=== PATIENT | female | born 1985 | race Caucasian/White ===

== ENCOUNTER 2023-10-21 13:51 | Outpatient (RCR) | payer OTHER, SELFPAY | END 2023-10-26 07:00 | disposition home or self-care (01) | LOC: PT 13:51 | PROVIDERS: PCP Family Medicine; Visit Provider Podiatrist Foot & Ankle Surgery | DX: M79.672 Pain in left foot (principal); M25.372 Other instability, left ankle; M76.72 Peroneal tendinitis, left leg; M25.572 Pain in left ankle and joints of left foot | CPT/HCPCS: 97110; 97161 ==

== ENCOUNTER 2023-10-27 10:40 | Outpatient (RCR) | payer OTHER, SELFPAY | END 2023-11-15 16:55 | disposition home or self-care (01) | LOC: PT 10:40 | PROVIDERS: PCP Family Medicine; Visit Provider Podiatrist Foot & Ankle Surgery | DX: M79.672 Pain in left foot (principal) | CPT/HCPCS: 97110; 97112 ==

== ENCOUNTER 2024-04-06 07:38 | Outpatient (RCR) | payer OTHER, SELFPAY ==
[2024-04-06 15:41] LABS: Basophils Absolute Auto 0.1 10^3/uL (0.0-0.1); Basophils Percent Auto 0.6 % (0.2-2.0); Eosinophils Absolute Auto 0.1 10^3/uL (0.0-0.7); Eosinophils Percent Auto 1.2 % (0.9-7.0); Hematocrit 39.1 % (36.0-48.0); Hemoglobin 12.7 g/dL (12.0-16.0); Immature Granulocytes Abs Auto 0.07 10^3/uL (0.00-0.03); Immature Granulocytes Pct Auto 0.8 % (0.0-0.5); Lymphocytes Absolute Auto 2.2 10^3/uL (1.2-3.8); Lymphocytes Percent Auto 24.6 % (20.5-60.0); Mean Corpuscular HGB Conc 32.5 g/dL (29.9-35.2); Mean Corpuscular Volume 92.4 fL (81.0-99.0); Mean Platelet Volume 8.9 fL (9.5-13.5); Monocytes Absolute Auto 0.5 10^3/uL (0.3-0.8); Neutrophils Absolute Auto 6.1 10^3/uL (1.4-6.5); Neutrophils Percent Auto 66.8 % (43.0-75.0); Platelet Count 321 10^3/uL (150-450); Red Blood Count 4.23 10^6/uL (4.20-5.40); White Blood Count 9.1 10^3/uL (4.0-11.0)
[2024-04-06 16:16] LABS: Percent Iron Saturation 23.7 %
== END 2024-04-25 23:59 | disposition home or self-care (01) ==
LOC: INF 07:38
PROVIDERS: PCP Family Medicine; Visit Provider Internal Medicine Hematology & Oncology
DX: D64.9 Anemia, unspecified (principal); D50.9 Iron deficiency anemia, unspecified; K90.9 Intestinal malabsorption, unspecified; K21.9 Gastro-esophageal reflux disease without esophagitis; K58.9 Irritable bowel syndrome, unspecified
CPT/HCPCS: 36415; 82306; 82607; 82728; 82746; 83540; 83550; 85025; G0463

== ENCOUNTER 2024-05-10 07:28 | Outpatient (RCR) | payer OTHER, SELFPAY ==
[2024-05-03] MEDS: FERUMOXYTOL 510 MG in 0.9 % SODIUM CHLORIDE 100 ML 234 MG IV (09:30)
[2024-05-03 09:50] VITALS: BP 112/69; PULSE 78; TEMP 37.2; O2SAT 97
[2024-05-10 09:10] VITALS: BP 101/53; PULSE 76; TEMP 36.6; O2SAT 98
[2024-05-10] MEDS: FERUMOXYTOL 510 MG in 0.9 % SODIUM CHLORIDE 100 ML 234 MG IV (09:12)
== END 2024-05-26 23:59 | disposition home or self-care (01) ==
LOC: HEMC 07:28
PROVIDERS: PCP Family Medicine; Visit Provider Internal Medicine Hematology & Oncology
DX: D50.9 Iron deficiency anemia, unspecified (principal); K90.9 Intestinal malabsorption, unspecified
CPT/HCPCS: 96365; Q0138

== ENCOUNTER 2024-06-01 07:16 | Outpatient (RCR) | payer OTHER, SELFPAY ==
[2024-05-27 00:05] VITALS: BP 101/53; PULSE 76; TEMP 36.6; O2SAT 98
[2024-06-01 10:52] LABS: Basophils Percent Auto 0.5 % (0.2-2.0); Eosinophils Absolute Auto 0.1 10^3/uL (0.0-0.7); Eosinophils Percent Auto 2.2 % (0.9-7.0); Hematocrit 40.9 % (36.0-48.0); Hemoglobin 13.2 g/dL (12.0-16.0); Immature Granulocytes Abs Auto 0.01 10^3/uL (0.00-0.03); Immature Granulocytes Pct Auto 0.2 % (0.0-0.5); Lymphocytes Absolute Auto 1.6 10^3/uL (1.2-3.8); Lymphocytes Percent Auto 26.7 % (20.5-60.0); Mean Corpuscular HGB Conc 32.3 g/dL (29.9-35.2); Mean Corpuscular Hemoglobin 30.6 pg (26.7-34.0); Mean Corpuscular Volume 94.9 fL (81.0-99.0); Mean Platelet Volume 8.9 fL (9.5-13.5); Monocytes Absolute Auto 0.3 10^3/uL (0.3-0.8); Monocytes Percent Auto 5.6 % (1.7-12.0); Neutrophils Absolute Auto 3.9 10^3/uL (1.4-6.5); Neutrophils Percent Auto 64.8 % (43.0-75.0); Platelet Count 279 10^3/uL (150-450); Red Blood Count 4.31 10^6/uL (4.20-5.40)
[2024-06-01 11:14] LABS: Percent Iron Saturation 59.7 %
== END 2024-06-26 23:59 | disposition home or self-care (01) ==
LOC: HEMC 07:16
PROVIDERS: PCP Family Medicine; Visit Provider Internal Medicine Hematology & Oncology
DX: D50.9 Iron deficiency anemia, unspecified (principal); K90.9 Intestinal malabsorption, unspecified; K21.9 Gastro-esophageal reflux disease without esophagitis; K58.9 Irritable bowel syndrome, unspecified
CPT/HCPCS: 36415; 82728; 83540; 83550; 85025; G0463

== ENCOUNTER 2024-10-05 11:02 | Outpatient (OUT) | payer OTHER, SELFPAY ==
[2024-10-05 11:32] LABS: Basophils Percent Auto 0.6 % (0.2-2.0); Eosinophils Absolute Auto 0.2 10^3/uL (0.0-0.7); Eosinophils Percent Auto 2.8 % (0.9-7.0); Hematocrit 39.6 % (36.0-48.0); Hemoglobin 13.2 g/dL (12.0-16.0); Immature Granulocytes Abs Auto 0.01 10^3/uL (0.00-0.03); Immature Granulocytes Pct Auto 0.1 % (0.0-0.5); Lymphocytes Absolute Auto 1.6 10^3/uL (1.2-3.8); Lymphocytes Percent Auto 23.2 % (20.5-60.0); Mean Corpuscular HGB Conc 33.3 g/dL (29.9-35.2); Mean Corpuscular Hemoglobin 31.1 pg (26.7-34.0); Mean Corpuscular Volume 93.4 fL (81.0-99.0); Mean Platelet Volume 8.5 fL (9.5-13.5); Monocytes Absolute Auto 0.4 10^3/uL (0.3-0.8); Monocytes Percent Auto 5.3 % (1.7-12.0); Neutrophils Absolute Auto 4.6 10^3/uL (1.4-6.5); Platelet Count 335 10^3/uL (150-450); Red Blood Count 4.24 10^6/uL (4.20-5.40); Red Cell Distribution Width 11.7 % (11.0-15.0); White Blood Count 6.8 10^3/uL (4.0-11.0)
[2024-10-05 12:01] LABS: Percent Iron Saturation 32.7 %
[2024-10-06 04:07] LABS: Vitamin B12 572 pg/mL (232-1245)
== END 2024-10-05 11:03 | disposition home or self-care (01) ==
LOC: LAB 11:05
PROVIDERS: Visit Provider Internal Medicine Hematology & Oncology
DX: D64.9 Anemia, unspecified (principal); D50.9 Iron deficiency anemia, unspecified; K90.9 Intestinal malabsorption, unspecified
CPT/HCPCS: 36415; 82306; 82607; 82728; 82746; 83540; 83550; 85025

== ENCOUNTER 2024-10-07 07:51 | Outpatient (RCR) | payer OTHER, SELFPAY | END 2024-10-11 08:06 | disposition home or self-care (01) | LOC: HEMC 07:51 | PROVIDERS: Visit Provider Internal Medicine Hematology & Oncology | DX: D50.9 Iron deficiency anemia, unspecified (principal); D64.9 Anemia, unspecified; K90.9 Intestinal malabsorption, unspecified; K21.9 Gastro-esophageal reflux disease without esophagitis | CPT/HCPCS: G0463 ==

== ENCOUNTER 2025-08-24 12:21 | Outpatient (OUT) | payer OTHER, SELFPAY ==
--- OUTSIDE RECORDS SUMMARY | 2024-04-06 10:15 | XMS_ITS ---
Author Organization [facility] in [place] Address [address] [place] [address] Care Team Providers Care Analog Circuit Designer Name Role Phone Terri Garcia Primary Care Provider Rasheeda Escamilla Unavailable [phone] REASON FOR VISIT MD New PT Hem Encounters Encounter Location Date Provider Diagnosis [facility] [address] [place] [id number] 04/06/2024 Rasheeda Boudreaux Plan Of Treatment No Information Progress Notes * Jeanette LOAIZADOB:[birth year] (40 yo F)Acc No.[id number]:04/06/2024 UNLOCKED PROGRESS NOTE Progress Notes Patient: Jeanette PATHAK :?Rasheeda Boudreaux M.D.:1985???Age:38 Y ???Sex:FemaleDate:4Phone:[phone]:[address] [place], [id number]:Terri Garcia Subjective: * Chief Complaints: * 1 . MD New PT Hem. * Medical History: Objective: * Vitals: Assessment: Plan: * Treatment: * * Electronic signature of Rasheeda Boudreaux MD, [id number] on 08/24/2025 at 12:29 PM EDTSign off status: PendingVisit Status:?ANSPH (Voice) * Provider: Jame Boudreaux M.D. Date: 0 04/06/2024 Generated for Printing/Faxing/eTransmitting on:?08/24/2025 12:29 PM EDT
--- OUTSIDE RECORDS SUMMARY | 2024-05-25 05:00 | XMS_ITS ---
Author Organization [facility] in [place] Address [address] [place] [address] Care Team Providers Care Teletypewriter Operator Name Role Phone Terri Garcia Primary Care Provider Rasheeda Escamilla Unavailable [phone] REASON FOR VISIT MD Encounters Encounter Location Date Provider Diagnosis [facility] [address] [place] [address] 05/25/2024 Rasheeda Boudreaux Plan Of Treatment No Information Progress Notes * Jeanette LOAIZADOB:[birth year] (40 yo F)Acc No.[id number]:05/25/2024 UNLOCKED PROGRESS NOTE Progress Notes Patient: Jeanette PATHAK :?Rasheeda Boudreaux M.D.:1985???Age:38 Y ???Sex:FemaleDate:05/25/2024hone:[phone]:[address] [place], [id number]:Terri Garcia Subjective: * Chief Complaints: * 1 . MD. * Medical History: Objective: * Vitals: Assessment: Plan: * Treatment: * * Electronic signature of Rasheeda Boudreaux MD, [id number] on 08/24/2025 at 12:29 PM EDTSign off status: PendingVisit Status:?CANC (Cancelled) * Provider: Jame Boudreaux M.D. Date: 0 05/25/2024 Generated for Printing/Faxing/eTransmitting on:?08/24/2025 12:29 PM EDT
--- OUTSIDE RECORDS SUMMARY | 2024-06-01 07:30 | XMS_ITS ---
Author Organization [facility] in [place] Address [address] [place] [address] Care Team Providers Care Lasting Room Supervisor Name Role Phone Terri Garcia Primary Care Provider Rasheeda Escamilla Unavailable [phone] REASON FOR VISIT MD Encounters Encounter Location Date Provider Diagnosis [facility] [address] [place] [address] 06/01/2024 Rasheeda Boudreaux Plan Of Treatment No Information Progress Notes * Jeanette LOAIZADOB:[birth year] (40 yo F)Acc No.[id number]:06/01/2024 UNLOCKED PROGRESS NOTE Progress Notes Patient: Jeanette PATHAK :?Rasheeda Boudreaux M.D.:1985???Age:38 Y ???Sex:FemaleDate:06/01/2024hone:[phone]:[address], [id number]:Terri Garcia Subjective: * Chief Complaints: * 1 . MD. * Medical History: Objective: * Vitals: Assessment: Plan: * Treatment: * * Electronic signature of Rasheeda Boudreaux MD, [id number] on 08/24/2025 at 12:29 PM EDTSign off status: PendingVisit Status:?VOICEMSG (Voice) * Provider: Jame Boudreaux M.D. Date: 0 06/01/2024 Generated for Printing/Faxing/eTransmitting on:?08/24/2025 12:29 PM EDT
--- OUTSIDE RECORDS SUMMARY | 2024-10-05 06:30 | XMS_ITS ---
Author Organization [facility] in [place] Address [address] [place] [address] Care Team Providers Care Ingredient Scaler Name Role Phone Terri Garcia Primary Care Provider Rasheeda Escamilla Unavailable [phone] REASON FOR VISIT MD Encounters Encounter Location Date Provider Diagnosis [facility] [address] [place] [address] 10/05/2024 Rasheeda Boudreaux Plan Of Treatment No Information Progress Notes * Jeanette LOAIZADOB:[birth year] (40 yo F)Acc No.[id number]:10/05/2024 UNLOCKED PROGRESS NOTE Progress Notes Patient: Jeanette PATHAK :?Rasheeda Boudreaux M.D.:1985???Age:39 Y ???Sex:FemaleDate:10/05/2024hone:[phone]:[address] [place], [place]Trm:Terri Garcia Subjective: * Chief Complaints: * 1 . MD. * Medical History: Objective: * Vitals: Assessment: Plan: * Treatment: * * Electronic signature of Rasheeda Boudreaux MD, [id number] on 08/24/2025 at 12:28 PM EDTSign off status: PendingVisit Status:?CANC (Cancelled) * Provider: Jame Boudreaux M.D. Date: 1 12/06/2023 Generated for Printing/Faxing/eTransmitting on:?08/24/2025 12:28 PM EDT
--- OUTSIDE RECORDS SUMMARY | 2024-10-07 09:15 | XMS_ITS ---
Author Organization [facility] in [place] Address [address] [place] [address] Care Team Providers Care Forest Products Teacher Name Role Phone Terri Garcia Primary Care Provider Rasheeda Escamilla Unavailable [phone] REASON FOR VISIT MD Encounters Encounter Location Date Provider Diagnosis [facility] [address] [place] [address] 10/07/2024 Rasheeda Boudreaux Plan Of Treatment No Information Progress Notes * Jeanette LOAIZADOB:[birth year] (40 yo F)Acc No.[id number]:10/07/2024 UNLOCKED PROGRESS NOTE Progress Notes Patient: Jeanette PATHAK :?Rasheeda Boudreaux M.D.:1985???Age:39 Y ???Sex:FemaleDate:10/07/2024hone:[phone]:[address] [place], [id number]:Terri Garcia Subjective: * Chief Complaints: * 1 . MD. * Medical History: Objective: * Vitals: Assessment: Plan: * Treatment: * * Electronic signature of Rasheeda Boudreaux MD, [id number] on 08/24/2025 at 12:28 PM EDTSign off status: PendingVisit Status:?ANSPH (Voice) * Provider: Jame Boudreaux M.D. Date: 1 12/08/2023 Generated for Printing/Faxing/eTransmitting on:?08/24/2025 12:28 PM EDT
--- OUTSIDE RECORDS SUMMARY | 2025-08-24 12:28 | XMS_ITS | Patient Health Record ---
Author Organization [facility] in [place] Address [address] [place] [address] Care Team Providers Care Plate Glass Grinder Name Role Phone Terri Garcia Primary Care Provider Rasheeda Escamilla Unavailable [phone] Allergies No Known Allergies Results Component Value Reference Range Notes CBC AUTO DIFF (Not yet revie wed by provider) Interpretation: Performing Lab: Notes/Report: [facility] , White Blood Count 6.8 4.0-11.0 10 3/uL Red Blood Count4.244.20-5.40 10 6/yJPsfgqbbfwg58.212.0-16.0 g/qEZtyxuhhkcn06.6 36.0-48.0 %Mean Corpuscular Zqmaxt40.481.0-99.0 fLMean Corpuscular Hemoglobin 31.126.7-34.0 pgMean Corpuscular HGB Conc33.329.9-35.2 g/dLRed Cell Distribution Width11.711.0-15.0 %Platelet Uljwf611478-309 10 3/uLMean Platelet Volume8.59.5- 13.5 fLNeutrophils Percent Auto68.043.0-75.0 %Lymphocytes Percent Auto23.220.5- 60.0 %Monocytes Percent Auto5.31.7-12.0 %Eosinophils Percent Auto2.80.9-7.0 % Basophils Percent Auto0.60.2-2.0 %Immature Granulocytes Pct Auto0.10.0-0.5 % Neutrophils Absolute Auto4.61.4-6.5 10 3/uLLymphocytes Absolute Auto1.61.2-3.8 10 3/uLMonocytes Absolute Auto0.40.3-0.8 10 3/uLEosinophils Absolute Auto0.20.0- 0.7 10 3/uLBasophils Absolute Auto0.00.0-0.1 10 3/uLImmature Granulocytes Abs Auto0.010.00-0.03 10 3/uLPerforming Lab:see note - [facility] LB IRON AND TIBC (Not yet reviewed by provider) Interpretation: Performing Lab: Notes/Report: [facility] ,Iron85.050.0-170.0 ug/dLTotal Iron Binding Mjacptxj484.0250.0-450.0 ug/dL Percent Iron Ogmqiduvpx76.7Performing Lab:see [facility] LB Vitamin B12 (Not yet reviewed by provider) Interpretation: Performing Lab: Notes/Report: [facility] ,Vitamin Y54277449-5708 pg/mL Performed at: [facility] [id number] Cigar Making Machine Operator: Serjio Kumar PhD, Phone: [phone] Performing Lab:see note - [facility] LBVITAMIN D 25 [place] (Not yet reviewed by provider) Interpretation: Performing Lab: Notes/Report: [facility] ,Vitamin D61.2 <20 ng/mL Vit D deficient 20-<30 ng/mL Vit D insufficient 30-100 ng/mL Vit D sufficient >100 ng/mL Potential Toxicity Performing Lab:see [facility] LBFOLATE (Not yet reviewed by provider) Interpretation: Performing Lab: Notes/Report: [facility] ,Folate7.708.60-58.90 ng/mLPerforming Lab:[facility] FERRITIN (Not yet reviewed by provider) Interpretation: Performing Lab: Notes/Report: [facility] ,Kxqtrfbr638.08.0-252.0 ng/mLPerforming Lab:see [facility] LB Reason For Referral No Information Medications Medication SIG (Take, Route, Frequency, Duration) Notes Start Date End Date Status Meloxicam 15 MG 1 tablet Orally Once a day; Dura tion: 30 day(s) ActiveFamotidine 20 MG1 tablet at bedtime as needed Orally Once a dayActive Pantoprazole Sodium 40 MG1 tablet Orally Once a dayActiveDepo-Provera 150 MG/ML1 mL IntramuscularActive Social History Tobacco Use: Social History Observation Description Date Details (start date - stop date) Never Smoker NA - NA Tobacco Use/Smoking Question Answer Notes Patient is a nonsmoker Encounters Encounter Location Date Provider Diagnosis [facility] [address] [place] [address] 10/07/2024 Rasheedaemani Boudreaux Plan Of Treatment Pending Test Test Name Order Date CBC AUTO DIFF 04/06/2024 CBC AUTO DIFF 06/01/2024 CBC AUTO DIFF 10/05/2024 FERRITIN 10/05/2024 FERRITIN 06/01/2024 FERRITIN 04/06/2024 FOLATE 04/06/2024 FOLATE 10/05/2024 IRON AND TIBC 10/05/2024 IRON AND TIBC 06/01/2024 IRON AND TIBC 04/06/2024 VITAMIN D 25 [place] 04/06/2024 VITAMIN D 25 [place] 10/05/2024 Vitamin B12 04/06/2024 Vitamin B12 10/05/2024 Insurance Providers Payer Name Payer Address Payer Phone Subscriber Number Group Number Insured Name Patient Relationship to Insured Coverage Start Date Coverage End Date [facility] [employer] [address] [place] [phone] [id number] Dank Loaiza - patient is the etiecpk40 2023 Medical (General) History Medical History History ICD Code GERD (gastroesophageal reflux disease) K 21.9 Left foot pain M79.672 Left ankle pain M25.572 Surgical History Surgery Date(Month/Year) wisdom teeth 2006 d&c 2008 breast augmentation 2021
--- OUTSIDE RECORDS SUMMARY | 2025-08-24 12:29 | XMS_ITS | Clinical Summary ---
Author Organization [facility] Address [address] [place] [address] Care Team Providers Care Dog Trainer Name Role Phone Unavailable Primary Care Provider Unavailabl e Allergies No known active allergies Medications MedicationSigDispense QuantityRefillsLast FilledStart DateEnd DateStatus pantoprazole (ProtoNix) 40 MG EC tablet TAKE ONE TABLET BY MOUTH EVERY MORNING, ON AN EMPTY STOMACH FOR GASTROESOPHAGEAL REFLUX GBNCFJW3512/08/2023ctive omeprazole (PriLOSEC) [address] capsule Take 10 mg by mouth in the morning. Take before meals. Do not crush or chew.. Active acetaminophen (Tylenol) 325 MG tablet Take 325 mg by mouth12/08/2023ctive aspirin 325 MG tablet TAKE 1 TABLET BY MOUTH EVERY DAY FOR 21 DAYS*START THE DAY AFTER KNEE SURGERY* 07/22/2024ctive famotidine (Pepcid) 40 MG tablet Take 40 mg by mouth12/08/2023ctive Active Problems Patient Care Coordination No te Formatting of this note migh t be different from the original. [facility] Chuyita Epsinosa No known active problems Family History Medical HistoryRelationNameCommentsDiabetesFatherHypertensionFatherCancer Father's SisterDiabetesFather's SisterCancerMaternal GrandmotherDiabetesMaternal GrandmotherCancerMotherDiabetesMotherHeart diseaseMotherDiabetesMother's Sister RelationNameStatusCommentsFatherAliveFather's SisterDeceasedMaternal Grandmother DeceasedMotherDeceasedMother's SisterAlive Social History Tobacco UseTypesPacks/DayYears UsedDateSmoking Tobacco: NeverSmokeless Tobacco: Never Tobacco Cessation:Counseling Given: Not Answered Alcohol UseStandard Drinks/WeekCommentsYes0 (1 standard drink = 0.6 oz pure alcohol)once a monthCommentsUnknownSex and Gender InformationValueDate RecordedSex Assigned at BirthNot on fileLegal CbqAreruy19/03/2024 4:05 PM EDT Gender IdentityNot on fileSexual OrientationNot on file Last Filed Vital Signs Vital SignReadingTime TakenCommentsBlood Pressure--Pulse--Temperature-- Respiratory Rate--Oxygen Saturation--Inhaled Oxygen Concentration--Kbwwrk57.9 kg (152 lb)11/03/2024 9:02 AM YMJUqsxld838.2 cm (5' 7 )11/03/2024 9:02 AM ESTBody Mass Index23.8111/03/2024 9:02 AM EST Plan of Treatment Not on file Insurance
--- OUTSIDE RECORDS SUMMARY | 2025-08-24 12:30 | XMS_ITS | CCD ---
Author Organization [facility] Care Team Providers Care Stationary Steam Engineer Name Role Phone NONE, XXXX Primary Care Physician Unavailab PJ Nielsen Primary Care Physician Terri Garcia Unavailable DO Dhruv Rodríguez Attending Provider Dhruv Rodríguez Unavailable MD Terri Garcia Primary Care Provider MD Terri Garcia Primary Care Provider STU Sun Attending Provider [phone] Dhruv Rodríguez Admitting Unavailable Dhruv Rodríguez Attending Unavailable Anne, Dhruv Regalado Admitting Unavailable Dhruv Rodríguez Attending Unavailable Terri Garcia Primary Care Unavailable Terri Garcia Primary Care Unavailable Radha Sun Admitting Unavailable Radha Sun Attending Unavailable Rubio, Wade T Admitting Unavailable Rubio, Wade T Attending Unavailable Rubio, Wade T Referring Unavailable Rubio, Wade T Admitting Unavailable Rubio, Wade T Attending Unavailable Rubio, Wade T Referring Unavailable Rubio, Wade T Admitting Unavailable Rubio, Wade T Attending Unavailable Rubio, Wade T Referring Unavailable RADHA SUN Primary Care Physician Dione Daugherty Unavailable Unavailable Rubio, Wade T Referring Unavailable Rubio, Wade T Attending Unavailable Rubio, Wade T Admitting Unavailable Unavailable Primary Care Provider Unavailronny e RUBIO, WADE T Referring Unavailable RUBIO, WADE T Attending Unavailable RUBIO, WADE T Referring Unavailable RUBIO, WADE T Referring Unavailable RUBIO, WADE T Attending Unavailable RUBIO, WADE T Referring Unavailable FIDE ORTIZ Attending Unavailable RUBIO, WADE T Referring Unavailable RUSTY FLORES Attending Unavailable RUBIO, WADE T Referring Unavailable RUSTY FLORES Attending Unavailable RUBIO, WADE T Referring Unavailable MARK, RUSTY Attending Unavailable RUBIO, WADE T Referring Unavailable ORTIZ, FIDE Attending Unavailable RUBIO, WADE T Referring Unavailable RUBIO, WADE T Attending Unavailable MARK, RUSTY Attending Unavailable RUBIO, WADE T Referring Unavailable MARK, RUSTY Attending Unavailable RUBIO, WADE T Referring Unavailable ORTIZ, FIDE Attending Unavailable RUBIO, WADE T Referring Unavailable MARK, RUSTY Attending Unavailable RUBIO, WADE T Referring Unavailable MARK, RUSTY Attending Unavailable RUBIO, WADE T Referring Unavailable RUBIO, WADE T Attending Unavailable ORTIZ, FIDE Attending Unavailable RUBIO, WADE T Referring Unavailable MARK, RUSTY Attending Unavailable RUBIO, WADE T Referring Unavailable BRLOIS BIANCHI Attending Unavailable RUBIO, WADE T Referring Unavailable ORTIZ, FIDE Attending Unavailable RUBIO, WADE T Referring Unavailable ORTIZ, FIDE Attending Unavailable RUBIO, WADE T Referring Unavailable OLAYINKA BRADSHAW Attending Unavailable ORTIZ, FIDE Attending Unavailable DINO, RADHA A Referring Unavailable MARK, RUSTY Attending Unavailable DINO, RADHA A Referring Unavailable ORTIZ, FIDE Attending Unavailable DINO, RADHA A Referring Unavailable MARK, RUSTY Attending Unavailable DINO, RADHA A Referring Unavailable KELBLEY, DIONE Attending Unavailable DINO, RADHA A Referring Unavailable MARK, RUSTY Attending Unavailable DINO, RADHA A Referring Unavailable ORTIZ, FIDE Attending Unavailable DINO, RADHA A Referring Unavailable MARK, RUSTY Attending Unavailable DINO, RADHA A Referring Unavailable ORTIZ, FIDE Attending Unavailable DINO, RADHA A Referring Unavailable MARK, RUSTY Attending Unavailable DINO, RADHA A Referring Unavailable KELBLEY, DIONE Attending Unavailable DINO, RADHA A Referring Unavailable KELBLEY, DIONE Attending Unavailable DINO, RADHA A Referring Unavailable ORTIZ, FIDE Attending Unavailable DINO, RADHA A Referring Unavailable MARK, RUSTY Attending Unavailable DINO, RADHA A Referring Unavailable ORTIZ, FIDE Attending Unavailable DINO, RADHA A Referring Unavailable Allergies Allergy ClassificationReported Allergen(s)Allergy TypeDate of OnsetReaction(s) Facility (2 sources)No Known Medication Allergies; Translations: [No Known Medication Allergies]Propensity to adverse reactions (disorder)[facility] Repository Medications Current Medications MedicationDrug Class(es)DatesSig (Normalized)Sig (Original)acetaminophen 325 mg oral tablet (20 sources)Start: 90-26-3303zvyhpapfkyupy (Tylenol) 325 MG tablet Take 325 mg by mouth 12/08/2023 Activeacetaminophen 325 mg / oxyCODONE hydrochloride 5 mg oral tablet (3 sources)Opioid AgonistStart: 07-30-2024 End: 88-64-3508weon 1-2 tablets by mouth every four hours for painoxyCODONE- acetaminophen (Percocet) 5-325 MG tablet Indications: Acute pain of right knee Take 1-2 tablets by mouth every 4 (four) hours if needed for severe pain for up to 5 days 30 tablet ActiveStart: 82-09-9431bikc 1-2 tablets by mouth every four hours as needed for painPercocet 5 mg-325 mg oral tablet See Instructions, 40 tab(s), Refill(s) 0, Take one to two every 4 hours as needed fore knee surgical pain., [facility]/pharmacy #[id number], 168.6, cm, 07/12/24 12:10:00 EDT, Height/Length Dosing, 69.7, kg, 07/12/24 12:10:00 EDT, Weight Dosing Start Date: 07/22/24 Status: Orderedaspirin 325 mg oral tablet (20 sources)Platelet Aggregation Inhibitor, Nonsteroidal Anti-inflammatory Drug Start: 07-22-2024 End: 65-02-1187qmin 1 tablet by mouth once dailyaspirin 325 MG tablet TAKE 1 TABLET BY MOUTH EVERY DAY FOR 21 DAYS*START THE DAY AFTER KNEE SURGERY* 07/22/2024 Activefamotidine 40 mg oral tablet (20 sources)Histamine-2 Receptor AntagonistStart: 87-88-8495vzftgyatqn (Pepcid) 40 MG tablet Take 40 mg by mouth 12/08/2023 ActiveStart: 71-65-9345irys 1 tablet by mouth every twenty-four hoursFamotidine 20 MG 1 tablet at bedtime as needed Orally Once a day for 90 days February, ActiveStart: 07-29-2022 End: 99-14-9403ufon 1 tablet by mouth once daily at bedtimePepcid 20 mg Tab 20 mg = 1 tab(s), Oral, Once a day (at bedtime), X 90 day(s), # 90 tab(s), Refills( s) 0, Pharmacy: [facility]/pharmacy #[id number], 167.6, cm, 07/29/22 9:20:00 EDT, Height/Length Dosing, 60.8, kg, 07/29/22 9:20:00 EDT, Weight Dosing Start Date: 07/29/22 Stop Date: 10/27/22 Status: Ordered1 ml medroxyPROGESTERone acetate 150 mg/ml prefilled syringe (9 sources)ProgestinDepo-Provera 150 MG/ML 1 mL Intramuscular Activeomeprazole 40 mg delayed release oral capsule (20 sources)Proton Pump InhibitorStart: 41-49-7533pphvuxzlrz 40 mg Cap-DR 40 mg = 1 cap(s), Oral, Daily, Refills(s) 0, Control of stomach acid Start Date: 07/12/24 Status: Orderedtake 1 capsule by mouth before mealtimeomeprazole (PriLOSEC) [address] capsule Take 10 mg by mouth in the morning. Take before meals. Do not crush or chew.. Activeoxybutynin chloride 5 mg oral tablet (3 sources)Cholinergic Muscarinic AntagonistStart: 44-24-5668ypgq 1 tablet by mouth three times daily as neededoxybutynin 5 mg Tab 5 mg = 1 tab(s), Oral, TID, PRN for urinary discomfort, # 30 tab(s), Refills(s)0, Bladder problems Start Date: 07/26/22 Status: Orderedpantoprazole 40 mg delayed release oral tablet (20 sources)Proton Pump InhibitorStart: 07-26-2022 End: 65-65-1770ntzd 1 tablet by mouth once daily in the morning for gastroesophageal reflux diseasepantoprazole (ProtoNix) 40 MG EC tablet TAKE ONE TABLET BY MOUTH EVERY MORNING, ON AN EMPTY STOMACHFOR GASTROESOPHAGEAL REFLUX DISEASE 12/08/2023 Activeterbinafine 250 mg oral tablet (1 source)Allylamine AntifungalStart: 83-73-5518lbjxngimphr 250 mg oral tablet Refills(s) 0 Start Date: 07/26/22 Status: Ordered Problems Active Problems Problem ClassificationProblemDateDocumented DateEpisodic/ChronicAbdominal pain (1 source)Generalized abdominal pain; Translations: [Generalized abdominal pain] Onset: 19-88-9222ChvvfbvyRpoevyxgkt disorders (16 sources)Gastroesophageal reflux disease; Translations: [Gastroesophageal reflux disease without esophagitis]Onset: 011054-79-3280HztdgwyNjawkndi of lower limb (2 sources)Stress fracture, left foot, initial encounter for fractureEpisodic Joint disorders and dislocations; trauma-related (1 source)Tear of medial meniscus of knee; Translations: [Other tear of medial meniscus, current injury, right knee, initial encounter]Onset: 07-22-2024 EpisodicMood disorders (3 sources)Major depressive disorder, single episode, unspecified; Translations: [Depression]ChronicNausea and vomiting (5 sources)Nausea and -62-0684GgtbqkvtNyjxm connective tissue disease (1 source)Pain in left footEpisodicOther connective tissue disease (1 source)Lateral epicondylitis, unspecified elbowEpisodicOther injuries and conditions due to external causes (2 sources)Acute injury of anterior cruciate ligament; Translations: [Unspecified injury of right lower leg, subsequent encounter]73-37-6399Ptzpeadz Other non-traumatic joint disorders (1 source)Pain in left ankle and joints of left footEpisodicOther non-traumatic joint disorders (1 source)Joint derangement, unspecifiedEpisodicOther non-traumatic joint disorders (20 sources)Pain in right knee; Translations: [Pain in joint, lower leg]Onset: 791216-31-0691DmuaikdhWfutesf and strains (1 source)Sprain of anterior cruciate ligament of right knee, initial encounter; Translations: [Sprain of anterior cruciate ligament of right knee joint]Onset: 72-20-9087WkpkembbSzwrautemxip (1 source)Joint derangement, unspecified; Translations: [Joint derangement, unspecified]Onset: 02-18-8829Vfyhpfndnpjq (1 source)Pain in left ankle and joints of left foot; Translations: [Pain in left ankle and joints of left foot]Onset: 08-14-2023 Past or Other Problems Problem ClassificationProblemDateDocumented DateEpisodic/ChronicUnclassified (1 source)Exposure to 2019 novel coronavirus; Translations: [Contact with and (suspected) exposure to COVID19]NEGATED: Highlighted row has been ruled out! Unclassified (20 sources)No known active iojyeonf83-25-0902 Results Test NameValueInterpretationReference RangeFacilityXR Knee - right 1 or 2 Views on 05-81-8930Moatahg Result: AP, lateral views [place] office today saved to permanent record shows post surgical tibial and femoral bone tunnels without fracture. Effusion/ST swelling present as expected.[facility] CenterRad[facility] observation (narrative)[facility] HealthcareOperative Reporton 07-28-2024 Operative ReportOperative Report SURGERY DATE: 07/26/2024 CORPORATE SPECIALIST: Emelyn Lerma C.F.A. PREOPERATIVE DIAGNOSIS: Right knee internal derangement with anterior cruciate ligament tear, probable medial meniscal tear POSTOPERATIVE DIAGNOSIS: Right knee internal derangement with anterior cruciate ligament tear, probable medial meniscal tear, and lateral meniscal tear with superomedial plica OPERATION: Right knee arthroscopy with partial medial and lateral meniscectomy, excision of plica with arthroscopic-assisted allograft anterior cruciate ligament reconstruction ANESTHESIA: General/block combination TOURNIQUET TIME: See nurse's record, 300 mmHg SPECIMEN: None IMPLANTS UTILIZED: The Arthrex Delta tibial 9 x 23 interference screw, the RIGIDfix Mitek cross pins proximally for femoral fixation, allograft bone- patellar tendon-bone ESTIMATED BLOOD LOSS: Zero HISTORY AND INDICATIONS: Jania is a 39-year-old female with injury to her right knee with the above-noted issues. Please see office notes, History and Physical. Sites markedly preoperatively, all questions answered preoperatively, antibiotics provided weight based per protocol. The pros, cons, risks, benefits were reviewed. Consent form signed and witnessed. Graft options were discussed preoperatively and reiterated today, and she elects for allograft treatment. All questions were answered. Antibiotics were provided weight based per protocol. PROCEDURE: Jania was taken to the Operating Room and placed in supine position. Anesthesia was provided. She had a positive Varun and drawer, positive pivot shift. The leg was placed in a well-padded tourniquet to the right upper thigh. The leg was placed in a leg nogueira and it was prepped and draped in sterile fashion. A time-out procedure occurred consistent with the consent form, History and Physical, preoperative marked site, and landmarks were identified. Once time-out was confirmed, ananterolateral horizontal portal incision was made and the arthroscope entered the knee joint. General inspection showed intact articular cartilage of the patellofemoral joint and midline tracking. There was a moderate-size superomedial plica, no synovitis or loose body. Effusion was mild. Medial gutters were clean and free. The medial joint was examined which had a small radial tear. There was some early modeling and early degenerative change of the medial tibial plateau, no chondroplasty indicated. The medial femoral condyle was pristine. Anterior and posterior roots were stable. The medial meniscus underwent a partial medial meniscectomy with a basket biter as well as 4.0 shaver. Attention was then directed to the notch. The anterior cruciate ligament was completely torn and retracted with a midsubstance tear. Posterior cruciate ligament was intact. No significant notch impingement or overgrowth. The lateral joint had a more complex lateral meniscal tear with intact articular cartilage. The anterior and posterior roots were stable. This was in the mid body. It was non-repairable and shredded and frayed at the edges. Utilizing a basket biter as well as 4.0 shaver, a partial lateral meniscectomy was performed with stable margins. Plica was excised with the shaver. An bzykzgexo-sjjq-rsapxxxr tendon graft prepared in 10 mL plugs 25 mm long, a total length of 100 mm, was prepared, sutured, and fixed with the assistant professor of economics Emelyn Lerma. This was soaked in saline. Utilizing a [employer] Mitek system, an anteromedial tibial 1 cm incision was made. Tibial jib device was appropriately positioned at the footprint and drilled and over-reamed at 10 mm. Femoral plug was drilled and a Beath pin was placed through and through. Graft was sutured through and through and pulled. This was then placed with the cross pins and confirmed stable with good femoral fixation. Sleeves were removed. Knee was cycled 15 to 20 times without impingement. Good position and alignment of the graft was achieved. Tibial interference screw was appropriately positioned with a flexible wire tap and a 9 x 23 Arthrex screw. Good position, purchase, alignment were achieved. Pictures were taken with AP as well as AP extended showing no notch impingement and good position and alignment of the anterior cruciate ligament allograft. After copious irrigation final pictures were taken. All instrumentation was removed. A 3-0 Vicryl suture closed the subcutaneous tissues, a 4-0 Monocryl intracuticular suture was placed with liquid adhesive glue. Adaptic, 4x4's, ABD, and soft roll wrap were provided. Brace was provided from her house and will be set at 0 to 60 degrees. She was awakened from anesthesia and transferred to the Recovery Room in stable and satisfactory condition. CASE: Clean and elective COUNTS: Sponge and needle count correct SPECIMEN: None PATIENT CONDITION: Satisfactory Penny Dimas Dictated: 07/26/2024 [id number] Transcribed: 07/27/2024[facility] [place]Comment on above:Result Comment: Electronically Signed By: Wade Rubio DO\.br\Date and Time Signed: 07/28/24 12:48 EDTMain OR Intraoperative Recordon [id number] OR Intraoperative RecordMain OR Intraoperative Record IntraOp Document Type FT Summary Primary Physician: Wade Rubio DO Finalized Date/Time: 07/27/24 13:39:51 Pt. Name: JANIA SCOTT/Sex: 1985 Female Med Rec #: [id number] Physician: Wade Rubio DO Financial #: [id number] Pt. Type: A Room/Bed: [place] [address] Admit/Disch: 07/26/24 08:15:21 - 07/26/24 14:15:00 Institution: Case Times FT Entry 1 Patient Times In Room 07/26/24 10:43:00 Out Room 07/26/24 12:15:00 Procedure Times Start 07/26/24 11:16:00 Stop 07/26/24 12:12:00 Anesthesia Times Start 07/26/24 10:43:00 Stop 07/26/24 12:15:00 Block Timeout w07/26/24 10:24:00 Anesthesia Last Modified By: Nilo JIMENEZ, Nighat Rosado 07/26/24 12:19:06 General Comments: Ultrasound guided block performed by Dr. Baumann with TONY Funez assisting, HR 54bpm, SpO2 100% RA, patient tolerated well. TONY Hammond 07/27/24 Chart opened to review and send charges [facility] CSFA Case Attendance FT Entry 1 Entry 2 Entry 3 Case Attendee Yaya HERNANDEZ, NE, Wade Tejeda DO VAN HELPER, Berenetta NGauri Role Performed GEOGRAPHIC INFORMATION SYSTEMS ENGINEER Surgeon - Primary Scrub - Primary Time In 07/26/24 10:43:00 07/26/24 11:13:00 07/26/24 10:43:00 Time Out 07/26/24 12:15:00 07/26/24 12:01:00 07/26/24 12:15:00 Procedure KNEE ARTHROSCOPY W/ ACL KNEE ARTHROSCOPY W/ ACL KNEE ARTHROSCOPY W/ ACL REPAIR(Right) REPAIR(Right) REPAIR(Right) Comments Dr. Baumann anesthesia steel fabricating supervisor Last Modified By: Nilo RNNighat RN, Nighat Golden RN, Adiel Tubbs 07/26/24 12:19:09 07/26/24 12:19:09 07/26/24 12:19:09 Entry 4 Entry 5 Entry 6 Case Attendee Maria Guadalupe WATSON, Emelyn Reeder, Brian Corcoran RN, Nighat Rosado Role Performed VAN HELPER/SA Stockbroker - Primary Surgeon - Assist 1 Time In 07/26/24 10:43:00 07/26/24 10:43:00 07/26/24 10:43:00 Time Out 07/26/24 12:15:00 07/26/24 12:15:00 07/26/24 12:15:00 Procedure KNEE ARTHROSCOPY W/ ACL KNEE ARTHROSCOPY W/ ACL KNEE ARTHROSCOPY W/ ACL REPAIR(Right) REPAIR(Right) REPAIR(Right) Comments out to lunch from chop saw operator orientation, [id number] out to lunch from [id number]. Last Modified By: Nilo JIMENEZ, Nighat Golden RN, Adiel Sanchez RN 07/26/24 12:19:09 07/26/24 12:19:09 07/26/24 12:19:09 Entry 7 Case Attendee Adiel Golden RN Role Performed Stockbroker - Relief Time In 07/26/24 11:07:00 Time Out 07/26/24 11:39:00 Procedure KNEE ARTHROSCOPY W/ ACL REPAIR(Right) Comments chop saw operator lunch relief Last Modified By: Nighat Corcoran RN 07/26/24 12:19:09 General Comments: Narinder JACOB student also scrubbed in for case. Manish RNassistant store leader Protocols FT Pre-Care Text: Implements protective measures prior to operative or invasive procedure, confirms identity before the operative or invasive procedure, verifies operative procedure, surgical site, and laterality Entry 1 Procedure(s) KNEE ARTHROSCOPY W/ ACL Patient Identity Birthday, ID Band REPAIR(Right) Verified (select at Check, Patient least 2): Participation Consents / H and P Anesthesia Consent, Operative Site Present Verified H&P, Surgery/Procedure Marking Verified Consent, Transfusion Consent Surgical Site Yes Laterality Verified Yes Verified Procedure Verified Yes Correct Patient Yes Position Verified Availability Equipment, Implant, Prep Dry Yes Verified (If Medication Applicable) PreOp Antibiotic Yes Time Out Yaya HERNANDEZ, NE, [place], Wade Rubio DO, John WATSON, Maria Guadalupe Baez CST, Emelyn Rosado, Chantel JIMENEZ, Adiel Tubbs Time Out Complete 07/26/24 11:14:00 Outcomes Met? Yes Last Modified By: Adiel Golden RN 07/26/24 11:17:07 Post-Care Text: The patient is free from signs and symptoms of injury caused by extraneous objects Allergy Information FT Pre-Care Text: Verifies allergies Entry 1 Allergies Reviewed? Yes Allergies Reviewed Self/Patient With Outcomes Met? Yes Last Modified By: Adiel Golden RN 07/26/24 11:09:39 Post-Care Text: The patient received appropriate medication(s) safely administered during the perioperative period Surgical Procedures FT Entry 1 Procedure Description Procedure KNEE ARTHROSCOPY W/ ACL Modifiers Right REPAIR Surgeon Description RIGHT KNEE ANTERIOR CRUCIATE LIGAMENT RECONSTRUCTION W/ALLOGRAFT, RIGHT KNEE ARTHROSCOPY Primary Procedure Yes Primary Surgeon Wade Rubio DO Start 07/26/24 11:16:00 Stop 07/26/24 12:12:00 Anesthesia Type General Surgical Service Orthopedics Wound Class 1 - Clean Last Modified By: Nighat Corcoran RN 07/26/24 12:13:07 General Case Data FT Pre-Care Text: Classifies surgical wound, implements aseptic technique, initiates traffic control Entry 1 Case Information OR OR 5 FT Case Level Level 4 Wound Class 1 - Clean Specialty Orthopedics ASA Class 2 Preop Diagnosis RIGHT KNEE ACL SPRAIN, Postop Same As Preop Yes MEDIAL MENISCUS TEAR Postop Diagnosis RIGHT KNEE ACL SPRAIN, Outcomes Met? Yes MEDIAL MENISCUS TEAR Last Modified By: Ot (more content not included)...[facility] [place]Discharge Instructionson [id number] InstructionsDischarge Instructions JANIA SCOTT :1985 Visit Date:07/26/2024 Inpatient Discharge Instructions Your Care Team Admitting Physician - Wade Rubio DO Referring Physician - Wade Rubio DO Reason for Your Visit RIGHT KNEE ACL SPRAIN, MEDIAL MENISCUS TEAR Your Diagnosis Acute medial meniscus tear of right knee Complete tear of anterior cruciate ligament of right knee This Is Your Medications List acetaminophen-oxycodone (Percocet 5 mg-325 mg oral tablet) aspirin (aspirin 325 mg Tab) omeprazole (omeprazole 40 mg Cap-DR) pantoprazole (Pantoprazole [address] Tab) What to do next Instructions From Your Doctor Event Name Event Result Discharge Instructions Freetext 50% partial weight bearing until next office visit Discharge Activity Ambulate as tolerated, Arrange for a responsible adult supervision for 24 hours, Expect mild pain, Expect minimal amount of drainage and/or bleeding, Do not lift more than 5 lbs Discharge Restrictions No driving, Do not operate machinery or tools, Do not make important decisions for 24 hours, Do notdrink alcoholic beverages for 24 hours Discharge Diet(s) Regular, Drink liquids and eat a light meal Call Your Doctor For Persistent or heavy bleeding, Temperature above 101.5 degrees, Redness, swelling, or pus at operative site, Severe pain at the operative site, Persistent vomiting Wound Care Keep incision dry, Remove dressing as instructed Remove Dressing On 2 Discharge Instructions Discharge Instructions New Follow Up Appointments after Discharge Follow Up with Wade Rubio When: Comments: Keep scheduled appointment Where: [address] [place] [id number] (1) Medications What How Much When Why Instructions Next Dose Unchanged acetaminophen-oxycodone (Percocet 5 mg-325 mg oral tablet) See instructions Complete tearof anterior cruciate ligament of right knee Acute medial meniscus tear of right knee Take one to two every 4 hours as needed fore knee surgical pain. Pickup at [facility]/pharmacy #[id number] take with food Unchanged aspirin (aspirin 325 mg Tab) 1 Tablets By Mouth Every day Duration: 21 Days Start the dayafter knee surgery Pickup at [facility]/pharmacy #[id number] Unchanged omeprazole (omeprazole 40 mg Cap-DR) 1 Capsules By Mouth Every day Unchanged pantoprazole (Pantoprazole [address] Tab) 1 Tablets By Mouth Every day Pharmacy Information [facility]/pharmacy #[id number]: [address], [place] [phone] Allergies No Known Medication Allergies Problems Ongoing - Any problem that you are currently receiving treatment for. GERD (gastroesophageal reflux disease) Nausea and vomiting Devices Implanted/Removed This Visit Notice: You have devices implanted this visit that may not be MRI compatible. Implanted KNEE ARTHROSCOPY W/ ACL REPAIR Knee R Bisected Patella ligament 07/26/2024, Unknown - [place]: {[id number] KIT BTB CROSS PIN FEMORAL RIGID FIX 2.7MM ([id number]) 07/26/2024, Unknown - [place]: {[id number] SCREW BIOCOMPOSITE INTERFERENCE W/SHEATH 9X23 [[id number]] 07/26/2024, MR Safe - [place]: {[id number] Education Materials [place], [place] [facility] DISCHARGE INSTRUCTIONS: ANTERIOR CRUCIATE LIGAMENT GRAFT MEDICATIONS You will be given a prescription for pain medication. This should be taken as needed and try to take this with food. Pain medication can cause nausea, constipation, diarrhea, and restlessness and should only be used as needed. When you are able to tolerate Tylenol this should be used instead. ASPIRIN 325mg EC oral daily for 3 weeks for blood clot prevention. WOUND CARE Please keep dressing on. Keeping it clean and dry. Do not soak in the tub or otherwise submerge theincision until brian are removed. Any increase in pain, temperature or redness should be promptlyreported to the office. Reinforce dressing as needed. ACTIVITY You will be given a protocol of the Cruciate Ligament Reconstruction Program and therapy and this should be followed. Physical Therapy will advise you when it is safe to begin walking with crutches, generally this is performed after you obtain good leg strength, unless a meniscus repair has been performed as well. DIET You may begin to progress your regular home diet as tolerated. You should continue to increase fluids for the first two to three days after surgery. ANESTHESIA PRECAUTIONS You should not operate a vehicle (automobile, bicycle, motorcycle), machinery or power tools, make any important decisions or drink alcoholic beverages for 24 hours. You should not consume alcoholic beverages within 12 hours of using you pain medication. DRIVING Driving is legal. But if you are involved in an accident, you must be able to prove that you maintained full control of your vehicle. For this r (more content not included)...[facility] [place]Comment on above:Result Comment: Electronically Signed By: Cara JIMENEZ, Iris Lr\Date and Time Signed: 07/26/24 13:32 EDTMain OR PACU I Recordon [id number] OR PACU I RecordMain OR PACU I Record PACU Phase I Document Type FT Summary Primary Physician: Wade Rubio DO Finalized Date/Time: 07/26/24 13:24:16 Pt. Name: JANIA SCOTT/Sex: 1985 Female Med Rec #: [id number] Physician: Wade Rubio DO Financial #: [id number] Pt. Type: A Room/Bed: [place] [address] Admit/Disch: 07/26/24 08:15:21 - Institution: Case Times PACU I FT Pre-Care Text: Identifies barriers to communication and implements measures to provide psychological support Develops individualized plan of care, and ensures continuity of care Maintains patient's dignity and privacy, and maintains patient confidentiality Identifies and reports philosophical, cultural, and spiritual beliefs and values Identifies individual values and wishes concerning care Implements aseptic technique, and administers prescribed antibiotic therapy and immunizing agents as ordered Evaluates postoperative tissue perfusion Implements thermoregulation measures, and monitors body temperature Evaluates postoperative respiratory status Evaluates postoperative cardiac status Evaluates postoperative neurological status Assesses pain control, collaborated in initiating patient-controlled analgesia and implements alternative methods of pain control Verifies allergies, administers prescribed medications and solutions, evaluates response to medications Entry 1 In PACU I 07/26/24 12:16:00 Discharge from PACU 07/26/24 13:00:00 I Outcomes Met? Yes Last Modified By: Radha Haney RN 07/26/24 13:21:30 Post-Care Text: The patient demonstrates knowledge of the expected response to the operative or invasive procedure The patient's care is consistent with the individualized perioperative plan of care The patient's rightto privacy is maintained The patient's value system, lifestyle, ethnicity, and culture are considered, respected, and incorporated into the perioperative plan of care The patient participates in decisions affecting his or her perioperative plan of care The patient is free from signs and symptoms of infection The patient has wound/tissue perfusion consistent with or improved from baseline levels established preoperatively The patient is at or returning to normothermia at the conclusion of the immediate postoperative period The patient's respiratory function is consistent with or improved from baseline levels established preoperativelyThe patient's cardiovascular status is consistent with or improved from baseline levels established preoperatively The patient's cardiovascular status is consistent with or improved from baseline levels established preoperatively The patient demonstrates and/or reports adequate pain control throughout the perioperative period The patient received appropriate medication(s), safely administered during the perioperativeperiod Acuity Level PACU I FT Entry 1 Start Time 07/26/24 12:16:00 Stop Time 07/26/24 13:00:00 Acuity Level Acuity Level I Last Modified By: Radha Haney RN 07/26/24 13:24:06 Finalized By: Radha Haney RN Document Signatures Signed By: Radha Haney RN 07/26/24 13:24[facility] [place] II Recordon [id number] OR PACU II RecordMain OR PACU II Record PACU Phase II Document Type FT Summary Primary Physician: Wade Rubio DO Finalized Date/Time: 07/26/24 14:58:22 Pt. Name: JANIA SCOTT/Sex: 1985 Female Med Rec #: [id number] Physician: Wade Rubio DO Financial #: [id number] Pt. Type: A Room/Bed: [place] [address] Admit/Disch: 07/26/24 08:15:21 - 07/26/24 14:15:00 Institution: Case Times PACU II FT Pre-Care Text: Identifies barriers to communication and implements measures to provide psychological support and determines knowledge level Develops individualized plan of care, and ensures continuity of care Maintains patient's dignity and privacy, and maintains patient confidentiality Identifies and reports philosophical, cultural, and spiritual beliefs and values Identifies individual values and wishes concerning care administers prescribed antibiotic therapy and immunizing agents as ordered, Evaluates postoperative tissue perfusion Implements thermoregulation measures, and monitors body temperature Evaluates postoperative respiratory statusEvaluates postoperative cardiac status Evaluates postoperative neurological status Assesses pain control, collaborated in initiating patient-controlled analgesia and implements alternative methods of pain control Verifies allergies, administers prescribed medications and solutions, evaluates response to medications Entry 1 In PACU II 07/26/24 13:00:00 Discharge from PACU 07/26/24 14:15:00 II Outcomes Met? Yes Last Modified By: Iris Marroquin RN 07/26/24 14:58:21 Post-Care Text: The patient demonstrates knowledge of the expected response to the operative or invasive procedure The patient's care is consistent with the individualized perioperative plan of care The patient's rightto privacy is maintained The patient's value system, lifestyle, ethnicity, and culture are considered, respected, and incorporated into the perioperative plan of care The patient participates in decisions affecting his or her perioperative plan of care. The patient is free from signs and symptoms of infection The patient has wound/tissue perfusion consistent with or improved from baseline levels established preoperatively The patient is at or returning to normothermia at the conclusion of the immediate postoperative period The patient's respiratory function is consistent with or improved from baseline levels established preoperativelyThe patient's cardiovascular status is consistent with or improved from baseline levels established preoperatively The patient's neurological status is consistent with or improved from baseline levels established preoperatively The patient demonstrates and/or reports adequate pain control throughout the perioperative period The patient received appropriate medication(s), safely administered during the perioperativeperiod Finalized By: Iris Marroquin RN Document Signatures Signed By: Iris Marroquin RN 07/26/24 14:58[facility] [place] [place] Preoperative Recordon [id number] OR Preoperative RecordMain OR Preoperative Record PreOp Document Type FT Summary Primary Physician: Wade Rubio DO Finalized Date/Time: 07/26/24 11:07:50 Pt. Name: JANIA SCOTT/Sex: 1985 Female Med Rec #: [id number] Physician: Wade Rubio DO Financial #: [id number] Pt. Type: A Room/Bed: [facility] Admit/Disch: 07/26/24 08:15:21 - Institution: Case Times PreOp FT Pre-Care Text: Verifies consent for planned procedure, identifies individual values and wishes concerning care, includes family members in perioperative teaching Entry 1 Patient Times. In Pre Surgery 07/26/24 08:15:00 Out Pre Surgery 07/26/24 10:41:00 Outcomes Met? Yes Last Modified By: Adiel Golden RN 07/26/24 11:07:49 Post-Care Text: The patient participates in decisions affecting his or her perioperative plan of care Finalized By: Adiel Golden RN Document Signatures Signed By: Adiel Golden RN 07/26/24 11:07NoFlower HospitalProceduralon [id number] Patient: JANIA SCOTT Age: 39 years Sex: Female : 1985 Associated Diagnoses: None Author: Yaya HERNANDEZ CRNA, Queen N. Procedure Nerve Block Block Type: Adductor canal block. Laterality: Right. Informed consent for anesthesia management: Anesthesia options discussed including nerve block, Description of the procedure, risks, benefits, and alternatives was provided, The patient's questions were addressed. Time out: Confirmed correct patient, procedure and site. Time: Date/Time 07/26/2024 10:35:00. Indication: Block for postoperative pain management as requested by surgeon. Anesthesia Method: IV Sedation with monitored anesthesia care, The patient remained awake and able to interact in a meaningful way throughout the procedure. Preparation: The patient was placed in the following position Supine, Continuous pulse oximetry applied, Using maximal sterile barrier technique per current [facility] guidelines including hand hygeine, Guidance (Ultrasound used to identify anatomical landmarks, Using sterile gel and probe covers, Permanent image retained), The site was prepped with ChloraPrep. Procedure: Anesthetic Agent 20cc of 0.5% Ropivicaine with 4mg decadron, Catheter size (21 guage, Sonoplex needle), Needle was inserted without pain or parasthesia in the conscious patient, Number of attempts 1, Negative attempt at aspiration for blood, Medial and lateral spread of the anesthestic was observed, Periodic negative attempts at aspiration of blood were made as the local was injected, No pain or parathesia were elicited with injection of the anesthetic in the conscious patient, It was idetified that the correct anesthetic agent was administered to the correct site. Complications: The patient tolerated the procedure as expected, Procedure completed Dr Baumann.[facility] OhioProceduralProcedural Patient: JANIA SCOTT Age: 39 years Sex: Female : 1985 Associated Diagnoses: None Author: Yaya HERNANDEZ CRNA, Queen N. Procedure Nerve Block Block Type: Adductor canal block. Laterality: Right. Informed consent for anesthesia management: Anesthesia options discussed including nerve block, Description of the procedure, risks, benefits, and alternatives was provided, The patient's questions were addressed. Time out: Confirmed correct patient, procedure and site. Time: Date/Time 07/26/2024 07:45:00. Indication: Block for postoperative pain management as requested by surgeon. Anesthesia Method: IV Sedation with monitored anesthesia care, The patient remained awake and able to interact in a meaningful way throughout the procedure. Preparation: The patient was placed in the following position Supine, Continuous pulse oximetry applied, Using maximal sterile barrier technique per current [facility] guidelines including hand hygeine, Guidance (Ultrasound used to identify anatomical landmarks, Using sterile gel and probe covers, Permanent image retained), The site was prepped with ChloraPrep. Procedure: Anesthetic Agent 20cc of 0.5% Ropivicaine., Catheter size (21 guage, Sonoplex needle), Needle was inserted without pain or parasthesia in the conscious patient, Number of attempts 1, Negative attempt at aspiration for blood, Medial and lateral spread of the anesthestic was observed, Periodic negative attempts at aspiration of blood were made as the local was injected, No pain or parathesia were elicited with injection of the anesthetic in the conscious patient, It was idetified that the correct anesthetic agent was administered to the correct site. Complications: The patient tolerated the procedure as expected, Procedure completed by Queen Yaya CRNA under Dr Baumann's supervision..[facility] North HospitalEROLOGYOrdered By: Tarsha Rosen on [id number].beta subunit (U) [Moles/Vol][facility] Man SeroU BetaHcg [place] 07-26-2024 HCG.beta subunit (U) [Moles/Vol][facility] SystemComment on above:Performed By: #### [id number] #### [facility] [address] [place] [address]Yltnasmca Patient Summaryon [id number] Patient Summary Inpatient Patient Summary [address] [address] [facility] Clinical Discharge Instructions PERSON INFORMATION Name: JANIA SCOTT PHYSICIANS Admitting Physician: Wade Rubio DO Attending Physician: Wade Rubio DO PCP: RADHA SUN CNP Discharge Diagnosis: Acute medial meniscus tear of right knee; Complete tear of anterior cruciate ligament of right knee Comment: PATIENT EDUCATION INFORMATION Instructions: Ty - Anterior Cruciate Ligament Graft (Custom) (CUSTOM) Medication Leaflets: Follow up: With: Address: When: Wade Rubio [address] [place] [address] [facility] () Comments: Keep scheduled appointment Type Location Start [facility] 07/26/2024 11:15 AM 07/26/2024 12:30 PM Confirmed MEDICATION LIST Medications to Continue with No Changes Other Medications omeprazole (omeprazole 40 mg Cap-DR) 1 Capsules By Mouth every day. pantoprazole (Pantoprazole [address] Tab) 1 Tablets By Mouth every day. No Longer Take the Following Medications oxybutynin (oxybutynin 5 mg Tab) 1 Tablets By Mouth 3 times a day as needed for urinary discomfort. Comment:[facility]Outpatient Surgery Discharge Instructionon [id number] Surgery Discharge InstructionOutpatient Surgery Discharge Instruction [address] [address] Patient Discharge Instructions PERSON INFORMATION Name: JANIA SCOTT Date of : 1985 Current Date: 07/22/2024 12:46:37 PHYSICIANS Admitting Physician: Wade Rubio DO Discharge Diagnosis: Acute medial meniscus tear of right knee; Complete tear of anterior cruciate ligament of right knee JANIA SCOTT has been given the following list of follow-up instructions, prescriptions, and patient education materials: PATIENT FOLLOW-UP INFORMATION Diet: Regular, Drink liquids and eat a light meal Discharge Activity: Ambulate as tolerated, Arrange for a responsible adult supervision for 24 hours, Expect mild pain, Expect minimal amount of drainage and/or bleeding, Do not lift more than 5 lbs Discharge Restrictions: No driving, Do not operate machinery or tools, Do not make important decisions for 24 hours, Do not drink alcoholic beverages for 24 hours Call Your Doctor For: Persistent or heavy bleeding, Temperature above 101.5 degrees, Redness, swelling, or pus at operative site, Severe pain at the operative site, Persistent vomiting Wound Care Instructions: Keep incision dry, Remove dressing as instructed Remove Your Dressing In 2 Days Additional Instructions: 50% partial weight bearing until next office visit IF UNABLE TO CONTACT YOUR PHYSICIAN AND YOU FEEL IT IS AN EMERGENCY, GO TO THE NEAREST EMERGENCY ROOM OR CALL 911 SONIA Zimmerman LENORA, have received the attached patient education materials/instructions and have verbalized understanding: May we do a follow up call? Yes No I was present when discharge instructions were given Patient Signature Date Clinican/Nurse Signature Date Follow up: With: Address: When: Wade Rubio [address] [place], [place] [id number] Business (1) Comments: Keep scheduled appointment Type Location Start [facility] 07/26/2024 11:15 AM 07/26/2024 12:30 PM Confirmed Pharmacy Information: You may receive a survey from Debbi Rivera asking you to rate your care experience. Your feedback is important and will help us understand what we do well and how we can improve the quality of care we provide to you, your loved ones and our community. It?s an honor to serve you. Thank you for choosing [facility] HERE ARE THE MEDICATION CHANGES THAT OCCURRED DURING YOUR HOSPITAL STAY Medications to Continue with No Changes Other Medications omeprazole (omeprazole 40 mg Cap-DR) 1 Capsules By Mouth every day. pantoprazole (Pantoprazole [address] Tab) 1 Tablets By Mouth every day. No Longer Take the Following Medications oxybutynin (oxybutynin 5 mg Tab) 1 Tablets By Mouth 3 times a day as needed for urinary discomfort. PATIENT EDUCATION INFORMATION Instructions: [place] [place] [facility] DISCHARGE INSTRUCTIONS: ANTERIOR CRUCIATE LIGAMENT GRAFT MEDICATIONS You will be given a prescription for pain medication. This should be taken as needed and try to take this with food. Pain medication can cause nausea, constipation, diarrhea, and restlessness and should only be used as needed. When you are able to tolerate Tylenol this should be used instead. ASPIRIN 325mg EC oral daily for 3 weeks for blood clot prevention. WOUND CARE Please keep dressing on. Keeping it clean and dry. Do not soak in the tub or otherwise submerge theincision until brian are removed. Any increase in pain, temperature or redness should be promptlyreported to the office. Reinforce dressing as needed. ACTIVITY You will be given a protocol of the Cruciate Ligament Reconstruction Program and therapy and this should be followed. Physical Therapy will advise you when it is safe to begin walking with crutches, generally this is performed after you obtain good leg strength, unless a meniscus repair has been performed as well. DIET You may begin to progress your regular home diet as tolerated. You should continue to increase fluids for the first two to three days after surgery. ANESTHESIA PRECAUTIONS You should not operate a vehicle (automobile, bicycle, motorcycle), machinery or power tools, make any important decisions or drink alcoholic beverages for 24 hours. You should not consume alcoholic beverages within 12 hours of using you pain medication. DRIVING Driving is legal. But if you are involved in an accident, you must be able to prove that you maintained full control of your vehicle. For this reason, it is advised that you do no (more content not included)...NormalGalion HospitalBMPon 17-70-2405Ciiar gap [Moles/Vol]10 mmol/LNormal6-16Galion HospitalComment on above:Performed By: #### [id number] #### [facility] [address] [place], [place] [address]Iiofnyr [Mass/Vol]9.2 mg/dLNormal8.9-11.1FThe Bellevue HospitalComment on above:Performed By: #### [id number] #### [facility] [address], [place] [address]Qbkeuqrx [Moles/Vol]105 mmol/GKyqshm101-720BlypanGalion HospitalComment on above:Performed By: #### [id number] #### [facility] [address], [place] [address]CK0 [Moles/Vol]27 mmol/SYlvulg98-02OiwafqGalion Hospital Comment on above:Performed By: #### [id number] #### [facility] [address], [place] [address]Ihzsjxzpzw [Mass/Vol]0.8 mg/dLNormal0.5-1.3FThe Bellevue HospitalComment on above:Performed By: #### [id number] #### [facility] [address], [place] [address]Cskmrtr [Mass/Vol]83 mg/sOIsdrrr34-204AmwhfoGalion HospitalComment on above:Performed By: #### [id number] #### [facility] [address], [place] [address]Srxyqplso [Moles/Vol]4.1 mmol/LNormal3.5-5.3FThe Bellevue HospitalComment on above:Performed By: #### [id number] #### [facility] [address], [place] [address]Rbfbdy [Moles/Vol]138 mmol/ZFtxknu142-944XiklqlGalion HospitalComment on above:Performed By: #### [id number] #### [facility] [address], [place] [address]Omqj nitrogen [Mass/Vol]15 mg/dLNormal5-21Galion HospitalComment on above:Performed By: #### [id number] #### [facility] [address], [place] [address]Wxpa nitrogen/Creatinine [Mass ratio]19 No SvkqgLizvbm70-24 [facility] HospitalComment on above:Performed By: #### [id number] #### [facility] [address] [place] [address]NHU w/ Auto Diffon 33-16-4009Obswoktfl/100 WBC (Bld)0.3 %Normal 0.0-2.0Galion HospitalComment on above:Performed By: #### [id number] #### [facility] [address], [place] [address]Hmqfwjqfj/Leukocytes Auto (Bld) [Pure # fraction]0.0 E9/LNormal 0.0-0.2FThe Bellevue HospitalComment on above:Performed By: #### [id number] #### [facility] [address] [place] [address]Katmzinxmwh (Bld) [#/Vol]0.2 E9/LNormal0.0-0.5FThe Bellevue HospitalComment on above:Performed By: #### [id number] #### [facility] [address], [place] [address]Lpzhkhatenc/100 WBC (Bld)3.3 %Normal0.0-8.0Galion HospitalComment on above:Performed By: #### [id number] #### [facility] [address], [place] [address]Byqxmbmuxgl distribution width (RBC) [Ratio]13.1 %Normal 10.9-14.2FThe Bellevue HospitalComment on above:Performed By: #### [id number] #### [facility] [address] [place] [address]Tgnvezbskz (Bld) [Volume fraction]37.8 %Voifyr85.0-46.0Galion HospitalComment on above:Performed By: #### [id number] #### [facility] [address] [place] [address]Wherooewtx (Bld) [Mass/Vol]13.2 g/tZZlerfu99.0-16.0Gal[facility] HospitalComment on above:Performed By: #### [id number] #### [facility] [address] [place] [address]Nqavwiwtsjh (Bld) [#/Vol]1.3 E9/LNormal1.0-4.0[facility] HospitalComment on above:Performed By: #### [id number] #### [facility] [address] [place] [address]Ivngeggsmxo/100 WBC (Bld)20.7 %Uypjtq39.0-50.0[facility] HospitalComment on above:Performed By: #### [id number] #### [facility] [address] [place] [address]TVO (RBC) [Entitic mass]32.0 jwEifody76.0-34.0[facility] HospitalComment on above:Performed By: #### [id number] #### [facility] [address] [place] [address]HUGG (RBC) [Mass/Vol]34.9 g/fULxviqp80.4-36.0[facility] HospitalComment on above:Performed By: #### [id number] #### [facility] [address] [place] [address]JUW (RBC) [Entitic vol]91.9 jLSeirit65.0-100.0[facility] HospitalComment on above:Performed By: #### [id number] #### [facility] [address], [place] [address]Oezwsoaep (Bld) [#/Vol]0.3 E9/LNormal0.2-1.0Galion HospitalComment on above:Performed By: #### [id number] #### [facility] [address] [place] [address]Isosxjdgmim (Bld) [#/Vol]4.4 E9/LNormal2.0-7.5FThe Bellevue HospitalComment on above:Performed By: #### [id number] #### [facility] [address], [place] [address]Szrmrjlzlyb/100 WBC (Bld)70.4 %Dkrogx72.0-75.0[facility] HospitalComment on above:Performed By: #### [id number] #### [facility] [address] [place] [address]Pklpirik636.0 E9/EYldmkv367.0-500.0[facility] Comment on above:Performed By: #### [id number] #### [facility] [address] [place] [address]Ggkxnfyj mean volume (Bld) [Entitic vol]6.9 fLNormal6.4-10.8 [facility] HospitalComment on above:Performed By: #### [id number] #### [facility] [address] [place] [address]GVN (Bld) [#/Vol]4.1 E12/LLow4.3-5.9[facility] Comment on above:Performed By: #### [id number] #### [facility] [address] [place] [address]BTX corrected for nucl RBC Auto (Bld) [#/Vol]6.2 E9/LNormal 4.0-11.0Galion HospitalComment on above:Performed By: #### [id number] #### [facility] [address] [place] [address]SLMSPHGUYHocdzke By: SYSTEM SYSTEM on 08-72-1315Jgndr gap [Moles/Vol]10 mmol/LNormal6 - 16 mEq/LRemisol ChemCalcium [Mass/Vol]9.2 mg/dL Normal8.9 - 11.1 mg/dLRemisol ChemChloride [Moles/Vol]105 mmol/DVxnxlz601 - 111 mmol/LRemisol ChemCO2 [Moles/Vol]27 mmol/FYxwgum93 - 31 mmol/LRemisol Chem Creatinine [Mass/Vol]0.8 mg/dLNormal0.5 - 1.3 mg/dLRemisol IyitnYVI99 mL/min/1.73 l3Jfdsjm>=59mL/min/1.73 j3Lhnustj ChemGlucose [Mass/Vol]83 mg/dL Cjibks89 - 199 mg/dLRemisol ChemPotassium [Moles/Vol]4.1 mmol/LNormal3.5 - 5.3 mmol/LRemisol ChemSodium [Moles/Vol]138 mmol/TCfdbjr532 - 145 mmol/LRemisol Chem Urea nitrogen [Mass/Vol]15 mg/dLNormal5 - 21 mg/dLRemisol ChemUrea nitrogen/Creatinine [Mass ratio]19 mg/knZtppib97 - 20Remisol ChemHEMATOLOGY Ordered By: SYSTEM SYSTEM on 65-70-4163Fqfzzbhge/100 WBC (Bld)0.3 %Normal0.0 - 2.0 %Remisol HemeBasophils/Leukocytes Auto (Bld) [Pure # fraction]0.0 E9/LNormal 0.0 - 0.2 E9/LRemisol HemeEosinophils (Bld) [#/Vol]0.2 E9/LNormal0.0 - 0.5 E9/L Remisol HemeEosinophils/100 WBC (Bld)3.3 %Normal0.0 - 8.0 %Remisol Heme Erythrocyte distribution width (RBC) [Ratio]13.1 %Kaeudo45.9 - 14.2 %Remisol HemeHematocrit (Bld) [Volume fraction]37.8 %Zqrwqt16.0 - 46.0 %Remisol Heme Hemoglobin (Bld) [Mass/Vol]13.2 g/xNEyqvvn66.0 - 16.0 gm/dLRemisol Heme Lymphocytes (Bld) [#/Vol]1.3 E9/LNormal1.0 - 4.0 E9/LRemisol HemeLymphocytes/100 WBC (Bld)20.7 %Liykvt36.0 - 50.0 %Remisol HemeMCH (RBC) [Entitic mass]32.0 pg Tmnvgr74.0 - 34.0 pgRemisol HemeMCHC (RBC) [Mass/Vol]34.9 g/yJZgnivz50.4 - 36.0 gm/dLRemisol HemeMCV (RBC) [Entitic vol]91.9 mPNpjnln96.0 - 100.0 fLRemisol Heme Monocytes (Bld) [#/Vol]0.3 E9/LNormal0.2 - 1.0 E9/LRemisol HemeMonocytes/100 WBC (Bld)5.3 %Normal4.0 - 14.0 %Remisol HemeNeutrophils (Bld) [#/Vol]4.4 E9/LNormal 2.0 - 7.5 E9/LRemisol HemeNeutrophils/100 WBC (Bld)70.4 %Jyaezy73.0 - 75.0 % Remisol IubrMzfwsbnn158.0 E9/ZGozlsi074.0 - 500.0 E9/LRemisol HemePlatelet mean volume (Bld) [Entitic vol]6.9 fLNormal6.4 - 10.8 fLRemisol HemeRBC (Bld) [#/Vol] 4.1 E12/LLow4.3 - 5.9 E12/LRemisol HemeWBC corrected for nucl RBC Auto (Bld) [#/Vol]6.2 E9/LNormal4.0 - 11.0 E9/LRemisol HemeeGFRon 97-98-9436uKVK79 mL/min/1.73 k8Dhfnln>=59Galion HospitalComment on above:Order Comment: Order added by Discern Expert.Performed By: #### [id number] #### [facility] [address] [place], [place] [address]ZK knee RT wo conon 18-35-6912SC knee RT wo [facility] [place] [address] [place] [address] MRI Report Signed Patient: Jania Scott MR#: [id number] 412 : 1985 Acct:[id number] Age/Sex: 38 / F ADM Date: 04/30/24 Loc: MR Room: Type: [facility] Attending Dr: Radha Sun APRN, DISTRICT MANAGER [employer]-C Copies to: Radha Sun APRN, CNP Ordering Provider: Radha Sun APRN, CNP Date of Service: 04/30/24 MR/MR knee RT wo con: RT KNEE PAIN/SWELLING, INJURY W/TWISTING MOTION, HEARD POP MRI of the RIGHT Knee without contrast TECHNIQUE: Multiplanar T1 and T2-weighted imaging of the knee obtained without contrast HISTORY: Twisting injury. RIGHT knee pain COMPARISON:None BONE MARROW: No infiltrative changes. BONE MARROW EDEMA: None FRACTURE: None BONE TUMOR: None BONY ALIGNMENT: Adequate DEGENERATION: No significant spurring or joint space narrowing. JOINT EFFUSION: No joint effusion MUSCLES: Unremarkable SOFT TISSUES: Unremarkable POPLITEAL CYST: None ANTERIOR CRUCIATE LIGAMENT: The heterogeneous signal changes of the anterior cruciate ligament near the femoral insertion. Consider tendinosis/partial tear. POSTERIOR CRUCIATE LIGAMENT: Intact LATERAL COMPARTMENT: LATERAL MENISCUS: Extrusion of the body of the lateral meniscus. Transverse linear incision trace signal intensity of the body and posterior horn concerning for transverse tear.. LATERAL ARTICULAR CARTILAGE: Intact. No osteochondral defect. No subcuticular bone marrow edema. PROXIMAL TIBIOFIBULAR JOINT: Intact POSTERIOR LATERAL COMPARTMENT: Intact lateral collateral ligament complex. Intact biceps femoris tendon. Intact popliteus tendon. COMMON PERONEAL NERVE: Intact MEDIAL COMPARTMENT: MEDIAL MENISCUS: Intact MEDIAL ARTICULAR SURFACE: No chondromalacia. No subarticular bone marrow edema. POSTERIOR MEDIAL COMPARTMENT: Medial collateral ligament complex intact. The semimembranosus tendon intact. No ramp lesion of the posterior horn of medial meniscus present. PATELLOFEMORAL COMPARTMENT: PATELLOFEMORAL ARTICULAR CARTILAGE: Intact ANTERIOR LIGAMENTS: Patellar ligament and quadriceps tendon are intact. MR/MR knee RT wo con IMPRESSION: lateral protrusion involving the body of the lateral meniscus with concern for transverse tear of the body and posterior horn of the lateral meniscus. Concern for tendinosis/partial tear of the ACL near the femoral insertion. Intact medial meniscus and posterior cruciate ligament. Impression dictated by: Vladimir Sarabia M.D.04/30/2024 1:32 PM Dictation Location: [place] [address] Transcribed By: [facility] 04/30/24 1332 Dictated By: Vladimir Sarabia DO 04/30/24 1317 Signed By: 04/30/24 1332[facility] Physician GroupBasophils Auto (Bld) [#/Vol]on 35-61-8272Hzgevqodj (Bld) [#/Vol]0.1 10 3/uL0.0-0.1FCleveland ClinicBasophils/100 WBC Auto (Bld)on 73-22-6775Dabqnrvhu/100 WBC (Bld)0.6 % 0.2-2.0[facility] HospitalEosinophils/100 WBC Auto (Bld)on 89-38-1985Thtmojsaljj/100 WBC (Bld)1.2 %0.9-7.0[facility] Erythrocyte distribution width Auto (RBC) [Ratio]on 68-17-0880Qsnqlhhkhgr distribution width (RBC) [Ratio]12.0 %11.0-15.0[facility] Hematocrit Auto (Bld) [Volume fraction]on 15-09-4640Icumfjyzwq (Bld) [Volume fraction]39.1 %36.0-48.0[facility] HospitalHemoglobin [Mass/volume] in Bloodon 91-56-0874Epjfocwaep (Bld) [Mass/Vol]12.7 g/dL12.0-16.0 [facility] HospitalIron binding capacity [Mass/volume] in Serum or Plasmaon 82-45-4195Nptd binding capacity [Mass/Vol]393.0 ug/dL250.0-450.0 [facility] HospitalIron saturation [Mass Fraction] in Serum or Plasmaon 91-29-3389Qaxk saturation [Mass fraction]23.7 %[facility] HospitalLaboratory - Chemistry and Chemistry - challengeon 04-06-2024 Cobalamin (Vitamin B12) [Mass/Vol]555.0 pg/mL193.0-986.0[facility] HospitalFerritin [Mass/Vol]27.0 ng/mL8.0-252.0[facility] HospitalIron [Mass/Vol]93.0 ug/dL50.0-170.0[facility] - Hematology and Cell countson 86-71-6738Nokwyeci granulocytes/100 WBC (Bld)0.8 %High0.0-0.5FCleveland ClinicLeukocytes [#/volume] corrected for nucleated erythrocytes in Blood by Automated counon 64-19-7155AVO corrected for nucl RBC Auto (Bld) [#/Vol]9.1 10 3/uL4.0-11.0[facility] HospitalLymphocytes Auto (Bld) [#/Vol]on 06-53-3925Tyjshqhwtjv (Bld) [#/Vol]2.2 10 3/uL1.2-3.8[facility] HospitalLymphocytes/100 WBC Auto (Bld)on 19-20-4114Niimrsmkwru/100 WBC (Bld)24.6 %20.5-60.0[facility] HospitalMCH Auto (RBC) [Entitic mass]on 25-24-3187MJY (RBC) [Entitic mass]30.0 pg26.7-34.0[facility] HospitalMCHC Auto (RBC) [Mass/Vol]on 25-49-0378QLZT (RBC) [Mass/Vol]32.5 g/dL29.9-35.2FCleveland ClinicMCV Auto (RBC) [Entitic vol]on 11-37-0134QMG (RBC) [Entitic vol] 92.4 fL81.0-99.0[facility] HospitalMonocytes Auto (Bld) [#/Vol]on 98-41-1956Bkpozlkth (Bld) [#/Vol]0.5 10 3/uL0.3-0.8[facility] HospitalMonocytes/100 WBC Auto (Bld)on 99-26-2762Dpqbvvizk/100 WBC (Bld)6.0 % 1.7-12.0[facility] HospitalNeutrophils Auto (Bld) [#/Vol]on 67-52-9612Mfsgskilzjs (Bld) [#/Vol]6.1 10 3/uL1.4-6.5FCleveland ClinicNeutrophils/100 WBC Auto (Bld)on 75-99-8321Lbolaqdbvee/100 WBC (Bld)66.8 % 43.0-75.0[facility] HospitalNo Panel Informationon - Hydroxy Vitamin D Total51.8 ng/mLUc West Chester HospitalComment on above:<20 ng/mL Vit D ckgoyaolb66-<30 ng/mL Vit D goyzkbogjpig15-969 ng/mL Vit D sufficient>100 ng/mL Potential ToxicityEosinophils # (Auto)0.1 10 3/uL0.0-0.7 [facility] HospitalFolate7.20 ng/mLLow8.60-58.90[facility] HospitalImmature Granulocyte # (Auto)0.07 10 3/uLHigh0.00-0.03[facility] HospitalPlatelet mean volume Auto (Bld) [Entitic vol]on 47-63-4452Eiximhym mean volume (Bld) [Entitic vol]8.9 fLLow9.5-13.5FCleveland ClinicPlatelets Auto (Bld) [#/Vol]on 62-33-3668Edqjxeywy (Bld) [#/Vol]321 10 3/bO236-554YgvejocisUc West Chester HospitalRBC Auto (Bld) [#/Vol] on 48-16-4798OYN (Bld) [#/Vol]4.23 10 6/uL4.20-5.40[facility] HospitalMR ankle LT wo conon 08-58-6954CM ankle LT wo [facility] [place] [address] MRI Report Signed Patient: Jania Scott MR#: [id number] 412 : 1985 Acct:[id number] Age/Sex: 38 / F ADM Date: 08/19/23 Loc: Room: Type: [facility] Attending Dr: Dhruv Rodríguez DO Copies to: Dhruv Rodríguez DO Ordering Provider: Dhruv Rodríguez DO Date of Service: 08/19/23 MR/MR ankle LT wo con: Internal derangement of ankle MRI Right Ankle without contrast TECHNIQUE: Multiplanar T1 and T2-weighted imaging of the LEFT ankle obtained without contrast. COMPARISON: None HISTORY: Regular runner. Left ankle pain for several weeks. Radiation from the lateral malleolus area into the foot. CLINICAL QUESTION: Assessment for stress fracture. FINDINGS: SYNDESMOSIS: Adequate alignment of the distal tibia and fibula there is small amount of fluid identified in the distal syndesmosis. The anterior and posterior tibiofibular ligaments intact. THE BONE MARROW: Normal fatty marrow without marrow infiltrative changes. No bone marrow edema. FRACTURE: No fracture identified. LATERAL COLLATERAL LIGAMENT COMPLEX: Intact anterior talofibular ligament. Intact calcaneofibular ligament. There is heterogeneous signal changes within the posterior talofibular ligament. This may be a normal finding. There is adjacent fluid. This may represent ligamentous sprain.. ANTEROLATERAL COMPARTMENT: No anterolateral impingement findings. PERONEAL TENDONS: Normal peroneal brevis tendon adjacent to the bone. No longitudinal split tear. Normal appearance of the peroneal longus tendon. Normal low signal tendon. Intact superior peroneal retinaculum with normal alignment of the peroneal brevis tendon. Normal appearance of the peroneal tendons behind the retroareolar groove of the calcaneus. Small amount of fluid surrounds 20 Vasiliy this tendon posterior to the lateral malleolus. This may suggest tenosynovitis.. No hypertrophy of the peroneal tubercle of the lateral calcaneus BIFURCATE LIGAMENT: Calcaneocuboid and calcaneonavicular ligaments of the bifurcate ligament are intact. The anterior process of the calcaneus is intact without bone marrow edematous changes. Intact the midtarsal joint. DELTOID LIGAMENT: The superficial and deep components of the medial collateral deltoid ligaments are intact. SPRING LIGAMENT: The spring ligament normally intersects the posterior tibial tendon in the talar head with coronal view no findings of tear or thickening. Specifically the superior medial segment is preserved. POSTERIOR TIBIAL TENDON: Normal orientation the posterior tibial tendon behind of the medial malleolus inserting into the navicular bone. Small amount of normal fluid is seen within the tendon sheath which terminates 1-2 cm proximal to the navicular insertion. No distal paratendinitis of the tendon identified. Unremarkable heterogeneous signal intensity of the distal tendon identified. SINUS TARSI: Normal fat-containing sinus tarsi identified without evidence of posterior tibial tendon dysfunction, talocalcaneal or fibulocalcaneal impingement identified. FLEXOR DIGITORUM LONGUS: Intact. FLEXOR HALLUCIS LONGUS: Intact . Fluid surrounding the flexor hallucis longus is likely a normal finding suggesting communication of the joint. ACHILLES TENDON: Normal homogeneous low signal. Normal thickness with slight concave anterior surface present. No peritendinous edema. No retrocalcaneal bursitis. No Bren deformity. Infiltration No tear of the calcaneal insertion or mid substance. Normal Curtis's fat-pad. No Achilles tendon insertion enthesophyte. ANTERIOR TIBIAL TENDON:Anterior tibial tendon intact. No surrounding abnormal tendon sheath fluid. PLANTAR FASCIA: 3 fascicles of the plantar fascia are intact. No calcaneal spurring. No reactive bone marrow edema. No adjacent soft tissue edema. MR/MR ankle LT wo con IMPRESSION: No stress fracture identified. Subtle bone marrow edematous changes of the cuboid which may be reactive. Small medial calcaneocuboid ganglion cyst. Findings suggesting tenosynovitis of the peroneus longus and brevis tendon at the level of the lateral malleolus. No split tear. No subluxation. Findings suggesting.Lateral collateral ligamentous sprain Impression dictated by: Vladimir Sarabia M.D.08/19/2023 10:31 AM Dictation Location: [place] [address] Transcribed By: [facility] 08/19/23 1031 Dictated By: Vladimir Sarabia DO 08/19/23 0957 Signed By: 08/19/23 1031[facility] Physician GroupXR foot LT min 3V*on 08-14-2023 XR foot LT min 3V*[facility] [place] [address] [place] [address] XRay Report Signed Patient: Jania Scott MR#: [id number] 412 : 1985 Acct:[id number] Age/Sex: 38 / F ADM Date: 08/14/23 Loc: [facility] Room: Type: [facility] CLI Attending Dr: Dhruv Rodríguez DO Copies to: Dhruv Rodríguez DO Ordering Provider: Dhruv Rodríguez DO Date of Service: 08/14/23 XR/XR ankle LT min 3V*: PAIN ([id number]) XR/XR foot LT min 3V*: PAIN ([id number]) XR/XR foot RT 2V: COMP CLINICAL DATA: Lateral left ankle pain radiating to the fifth metatarsal for the past 2 months. Patient is a runner. LEFT ANKLE- 3 views COMPARISON: None Weightbearing AP, lateral and oblique views were obtained. There is no evidence of fracture or dislocation. The talar dome is intact. There are no significant soft tissue abnormalities. XR/XR ankle LT min 3V* IMPRESSION: NO ACUTE BONY FINDINGS. LEFT FOOT - 3 views COMPARISON: None Weightbearing AP, lateral and oblique views were obtained. There is no evidence of fracture or dislocation. Tiny plantar calcaneal spur is seen. There are no significant soft tissue abnormalities. IMPRESSION: NO ACUTE BONY FINDINGS. RIGHT FOOT - 1view COMPARISON: None AP weightbearing view the right foot was obtained for comparison. There is no fracture or dislocation. No focal soft tissue abnormalities are noted. IMPRESSION: NO ACUTE BONY FINDINGS. Impression dictated by: Pauline Zarate M.D.08/14/2023 4:35 PM Dictation Location: [place] [address] Transcribed By: [facility] 08/14/231634 Dictated By: Pauline Zarate MD 08/14/231631 Signed By: 08/14/23 [facility] Physician GroupCHEMISTRYOrdered By: SYSTEM SYSTEM on 52-90-2107Ogdskoz [Mass/Vol]4.3 g/dLNormal3.3 - 5.0 gm/dLALLIANCEHEALTH [facility] [place] Remisol Albumin/Globulin [Mass ratio]1.5 {ratio}Normal1.1 - 2.2[facility] RemisolALP [Catalytic activity/Vol]35 [iU]/uDyxhfb63 - 98 Int._Unit/LFTMC RemisolALT No additional P-5'-P [Catalytic activity/Vol]13 [iU]/dNormal6 - 46 Int._Unit/LFT[facility] RemisolAnion gap [Moles/Vol]11 mmol/LNormal6 - 16 mEq/L[facility] RemisolAST [Catalytic activity/Vol]15 [iU]/dNormal5 - 43 Int._Unit/L[facility] RemisolBilirubin [Mass/Vol]0.3 mg/dLNormal0.0 - 1.1 mg/dLFTMC RemisolCalcium [Mass/Vol]9.0 mg/dL Normal8.9 - 11.1 mg/dLFTMC RemisolChloride [Moles/Vol]105 mmol/IDpjzrf201 - 111 mmol/LFTMC RemisolCO2 [Moles/Vol]26 mmol/ODimblk56 - 31 mmol/LFT[facility] Remisol Creatinine [Mass/Vol]0.8 mg/dLNormal0.5 - 1.3 mg/dLFTMC RemisolGFR/1.73 sq M.predicted among blacks MDRD (S/P/Bld) [Vol rate/Area]mL/min/1.73 z0Dsomey >=59mL/min/1.73 m2FT Chem SGFR/1.73 sq M.predicted among non-blacks MDRD (S/P/Bld) [Vol rate/Area]mL/min/1.73 i1Atcagt>=59mL/min/1.73 m2FT Chem S Globulin (S) [Mass/Vol]2.9 g/dLNormal1.4 - 4.0 gm/dLFT[facility] RemisolGlucose [Mass/Vol]97 mg/sXXvsxtx26 - 199 mg/dLFT[facility] RemisolPotassium [Moles/Vol]3.6 mmol/LNormal3.5 - 5.3 mmol/LFTMC RemisolProtein [Mass/Vol]7.2 g/dLNormal6.0 - 7.8 gm/dLFTMC RemisolSodium [Moles/Vol]138 mmol/NGxixxh301 - 145 mmol/LFTMC RemisolUrea nitrogen [Mass/Vol]12 mg/dLNormal5 - 21 mg/dLFTMC RemisolUrea nitrogen/Creatinine [Mass ratio]15 mg/ejIrekiu24 - 20[facility] RemisolHEMATOLOGY Ordered By: SYSTEM SYSTEM on 68-28-6192Ltdehztik/100 WBC (Bld)0.7 %Normal0.0 - 2.0 %[facility] HemeAutoSSBasophils/Leukocytes Auto (Bld) [Pure # fraction]0.0 E9/L Normal0.0 - 0.2 E9/LFTMC HemeAutoSSEosinophils/100 WBC (Bld)4.1 %Normal0.0 - 8.0 %[facility] HemeAutoSSEosinophils/Leukocytes Auto (Bld) [Pure # fraction]0.2 E9/L Normal0.0 - 0.5 E9/LFTMC HemeAutoSSLymphocytes/100 WBC (Bld)35.7 %Mlrpne34.0 - 50.0 %[facility] HemeAutoSSLymphocytes/Leukocytes Auto (Bld) [Pure # fraction]1.8 E9/L Normal1.0 - 4.0 E9/LFTMC HemeAutoSSMonocytes/100 WBC (Bld)6.6 %Normal4.0 - 14.0 %[facility] HemeAutoSSMonocytes/Leukocytes Auto (Bld) [Pure # fraction]0.3 E9/LNormal 0.2 - 1.0 E9/LFTMC HemeAutoSSNeutrophils/100 WBC (Bld)52.9 %Sdpige04.0 - 75.0 % [facility] HemeAutoSSNeutrophils/Leukocytes Auto (Bld) [Pure # fraction]2.7 E9/LNormal 2.0 - 7.5 E9/LFTMC HemeAutoSSHEMATOLOGYOrdered By: Izzy Shafer on 22-71-4792Rvojnpvphrs distribution width (RBC) [Ratio]16.3 %High10.9 - 14.2 % [facility] HemeAutoSSHematocrit (Bld) [Volume fraction]35.9 %Low37.7 - 49.0 %[facility] HemeAutoSSHemoglobin (Bld) [Mass/Vol]11.7 g/dLLow13.5 - 17.5 gm/dLFTMC HemeAutoSSMCH (RBC) [Entitic mass]26.3 pgLow27.0 - 34.0 pgFTMC HemeAutoSSMCHC (RBC) [Mass/Vol]32.5 g/pLQvpvxp11.4 - 36.0 gm/dLFTMC HemeAutoSSMCV (RBC) [Entitic vol]80.8 lWUzdlgm87.0 - 100.0 fLFTMC HemeAutoSSPlatelet mean volume (Bld) [Entitic vol]7.2 fLNormal6.4 - 10.8 [facility] HemeAutoSSPlatelets (Bld) [#/Vol]332.0 E9/DEnekms316.0 - 500.0 E9/LFTMC HemeAutoSSRBC (Bld) [#/Vol]4.4 E12/LNormal4.3 - 5.9 E12/LFTMC HemeAutoSSWBC corrected for nucl RBC Auto (Bld) [#/Vol]5.0 E9/LNormal4.0 - 11.0 E9/LFTMC HemeAutoSS Vital Signs Date TimeVital SignValuePerforming BwkosjzgmBlppgssj35-49-4635 09:02-0500Body nladxq307.2 cmTSt. Anthony Hospital Work Phone: [phone] [place], [place] 3140501-08-2025 09:02-0500Body mass index (BMI) [Ratio]23.81 kg/m2[facility] Work Phone: [phone] [place], [place] 3140501-08-2025 09:02-0500Body vvpiij72.95 kgRobert F. Kennedy Medical Center Work Phone: [phone] [place], [place] 3140511-07-2024 09:35-0500Body tobzao484.2 cmMichael Rubio DO Work Phone: [phone] [place], [place] 3140511-07-2024 09:35-0500Body mass index (BMI) [Ratio]23.81 kg/f5Ulgewjr Rubio DO Work Phone: [phone] [place], [place] 3140511-07-2024 09:35-0500Body wgmiwd58.95 kgMichael Rubio DO Work Phone: 1(295)[facility] [place], [place] [address]Uevelatfgw17-21-1309 09:33-0400Body edmxta608.2 cmMichael Rubio DO Work Phone: [phone] [place], [place] 3140510-10-2024 09:33-0400Body mass index (BMI) [Ratio]23.81 kg/g1Yylftlt Rubio DO Work Phone: [phone] [place], [place] 3140510-10-2024 09:33-0400Body ykymuq53.95 kgMichael Rubio DO Work Phone: [facility] HospitalZwbteopclj15-30-0644 14:00-0400Body temperature 98.06 [degF]Wade Rubio [address] [place], [place] 6533709-30-2024 14:00-0400 Diastolic blood czxkmxav73 mm[Hg]Wade Rubio [address] [place], [place] 3963809-30-2024 14:00-0400Heart rate70 /minMichael Rubio [address] [place], [place] 6533709-30-2024 14:00-0400 Respiratory rate16 /minMichael Rubio [address] [place], [place] 3963809-30-2024 14:00-8852WjG1% (BldA) [Mass fraction]97 %Wade Rubio [address] [place], [place] 3963809-30-2024 13:04-0400Heart rate71 /minMichael Rubio [address] [place], [place] 6533709-30-2024 13:04-1173YmE3% (BldA) [Mass fraction]100 %Wade Rubio [address] [place], [place] 6533709-30-2024 13:04-0400 Respiratory rate14 /minMichael Rubio [address] [place], [place] [id number] 13:03-0400Blood Pressure LocationMichael Rubio [address] [place], [place] 6533709-30-2024 13:03-0400 Diastolic blood aoogjbml73 mm[Hg]Wade Rubio [address] [place], [place] 6533709-30-2024 13:03-0400Mean blood ypulhzdo48 mm[Hg]Wade Rubio [address] [place], [place] 6533709-30-2024 13:03-0400 Systolic blood zufwdrrv884 mm[Hg]Wade Rubio [address] [place], [place] 3963809-30-2024 13:03-0400Body apmxwjrpwyl00.34 [degF]Wade Rubio [address] [place], [place] 3963809-30-2024 13:03-3813EiT1% (BldA) [Mass fraction]98 %Wade Rubio [address] [place], [place] 3963809-30-2024 12:55-0400Body lfizsfcbamk13.16 [degF]Wade Rubio [address] [place], [place] 3963809-30-2024 12:55-0400 Diastolic blood bpejfmyb94 mm[Hg]Wade Rubio [address] [place], [place] 3963809-30-2024 12:55-0400Heart rate87 /minMichael Rubio [address] [place], [place] 3963809-30-2024 12:55-0400 Respiratory rate18 /minMichael Rubio [address] [place], [place] 3963809-30-2024 12:55-0400 Systolic blood ducqvyma844 mm[Hg]Wade Rubio [address] [place], [place] 3963809-30-2024 12:45-0400 Respiratory rate15 /minMichael Rubio [address] [place], [place] 3963809-30-2024 12:30-0400 Respiratory rate19 /minMichael Rubio [address] [place], [place] 3963809-30-2024 12:15-0400 Respiratory rate1 /minMichael Rubio [address] [place], [place] 3963809-30-2024 08:47-0400Mean blood kurvvvlb62 mm[Hg]Wade Rubio [address] [place], [place] 3963809-30-2024 08:47-0400Heart rate66 /minMichael Rubio [address] [place], [place] 3963809-30-2024 08:45-0400Mean blood xzzbnlij55 mm[Hg]Wade Rubio [address] [place], [place] 3963809-30-2024 08:45-0400Body euqfwzbtprh39.24 [degF]Wade Rubio [address] [place], [place] 6533709-16-2024 10:31-0400Blood Pressure LocationMichael [facility] [address]09-16-2024 10:31-0400 Diastolic blood oxunajwy39 mm[Hg]Wade Rubio [address]09-16-2024 10:31-0400Heart rate63 /minMichael [facility] [address]09-16-2024 10:31-0400Mean blood qpozkzkc41 mm[Hg]Wade Rubio [address]09-16-2024 10:31-0400 Systolic blood pscwoexc313 mm[Hg]Wade Rubio [address]09-16-2024 10:31-0400Heart rate65 /minMichael [facility] [address] [place], [place] 6533709-16-2024 10:31-0400 Respiratory rate18 /minMichael [facility] [address] [place], [place] 6533709-16-2024 10:31-4678QoM6% (BldA) [Mass fraction]100 %Wade Rubio [address] [place], [place] 6533709-16-2024 10:30-0400Body hiroytactrt16.24 [degF]Wade Rubio [address] [place], [place] 6533709-16-2024 10:30-0400Blood Pressure LocationMichaelorenzo Rubio [address] [place], [place] 6533709-16-2024 10:30-0400 Diastolic blood wybdgxco61 mm[Hg]Wade Rubio [address] [place], [place] 6533709-16-2024 10:30-0400Mean blood rojgdpts91 mm[Hg]Wade Rubio [facility]09-16-2024 10:30-0400 Systolic blood pokmxnlg995 mm[Hg]Wade Rubio [facility]09-10-2024 14:24-0400Body cqaeor573.2 cmMichaelorenzo Rubio DO Work Phone: [employer].tvReynolds County General Memorial HospitalHrfqciiewj53-39-2927 14:24-0400Body mass index (BMI) [Ratio]23.81 kg/p5Vxitacc Rubio DO Work Phone: [employer].tvReynolds County General Memorial HospitalWoircvdkjj72-39-6248 14:24-0400Body lqexwn42.95 kgMichael Rubio DO Work Phone: [employer]tvReynolds County [facility] Memorial HospitalAwbrauvinn64-09-5702 09:30-0400Body etdnqp589.37 cmDhruv Rodríguez Other [employer] Other 10-19-2023 09:30-0400Body mass index (BMI) [Ratio] 23.92 kg/t9MwjcuDhruv Rodríguez Other [employer] Other 10-19-2023 09:30-0400Body .23 kgDhruv Rodríguez Other [employer] Other 05-09-2023 12:30-0400Body yzyxll334.37 cmTerri Garcia Other [employer] Other 05-09-2023 12:30-0400Body mass index (BMI) [Ratio] 23.27 kg/m2VaonsdTerri Garcia Other [employer] Other 05-09-2023 12:30-0400Body zmrjoa35.41 kgTerri Garcia Other [employer] Other 05-09-2023 12:30-0400Diastolic blood ougceaef67 mm[Hg] Terri Garcia Other [employer] Other 05-09-2023 12:30-8502LoC5% (BldA) [Mass fraction]99 % [facility] [employer] Other 05-09-2023 12:30-0400Systolic blood ievkfixd65 mm[Hg] Terri Garcia Other [facility] [employer] Other [id number] 14:31-0400Diastolic blood aiidlzak61 mm[Hg] Carrasco SALAM [facility]10-28-2022 14:31-0400Heart rate62 /minMaher SALAM [facility]10-28-2022 14:31-0400 Respiratory rate17 /minMaher SALAM [facility]10-28-2022 14:31-4153LrQ0% (BldA) [Mass fraction]100 %Carrasco SALAM [facility]10-28-2022 14:31-0400 Systolic blood [id number] mm[Hg]Carrasco SALAM [facility]10-28-2022 14:25-0400 Diastolic blood mm[Hg]Carrasco SALAM [facility]10-28-2022 14:25-0400Heart rate62 /minMaher SALAM [facility]10-28-2022 14:25-0400 Respiratory rate16 /minMaher SALAM [facility]10-28-2022 14:25-0269IrQ7% (BldA) [Mass fraction]100 %[place]arras[place] SALAM [facility] [place]10-28-2022 14:25-0400 Systolic blood dfdguttw037 mm[Hg]Carrasco SALAM [facility] [place]10-28-2022 14:20-0400 Diastolic blood cdkzyuda62 mm[Hg]Carrasco SALAM [address] [place], [place] 6148810-28-2022 14:20-0400Heart rate73 /minMaher SALAM [address] [place], [place] 6148810-28-2022 14:20-0400 Respiratory rate21 /minMaher SALAM [address] [place], [place] 6148810-28-2022 14:20-7413HbL8% (BldA) [Mass fraction]100 %Carrasco SALAM [address] [place], [place] 4090610-28-2022 14:20-0400 Systolic blood mm[Hg]Carrasco SALAM [facility] [place]10-28-2022 14:11-0400Body ppvliefgqrp85.88 [degF]Carrasco SALAM [facility] [place]10-28-2022 14:05-0400 Respiratory rate18 /minMaher SALAM [facility] [place]10-28-2022 14:01-0400 Respiratory rate16 /minMaher SALAM [address] [place], [place] 6148810-28-2022 13:07-0400Blood Pressure LocationMaher SALAM [address] [place], [place] 6148810-28-2022 13:07-0400Body xupxjttelfw49.06 [degF]Carrasco SALAM [facility] [place]10-28-2022 13:07-0400 Respiratory rate18 /minMaher SALAM [facility] [place] Encounters Encounter DateEncounter TypeCare ProviderFacilityStart: 02-08-2025 End: 59-81-5729Gaxymo flowsheetSammantha Ortiz PTNOMS CI PTStart: 02-08-2025 End: 80-48-0154Dulwpz flowsheetSammantha Ortiz PTNOMS CI PTStart: 02-08-2025 End: 13-26-2657nzhhvioitfAzjilhvjb Ortiz PTNOMS CI PTComment on above:Right knee pain, unspecified chronicity (Primary Dx); Status post repair of anterior cruciate ligamentStart: 02-01-2025 End: 36-64-4984Wpcvpn Honey Flores PTANOMS CI PTStart: 02-01-2025 End: 50-36-0600Vabuny Honey Flores PTANOMS CI PTStart: 02-01-2025 End: 24-07-8020znfivvydigSwubtxp Lawrence PTANOMS CI PTComment on above:Right knee pain, unspecified chronicity (Primary Dx); Status post repair of anterior cruciate ligamentStart: 01-25-2025 End: 11-21-5164Fcolid flowsheetSammantha Ortiz PTNOMS CI PTStart: 01-25-2025 End: 81-14-2500Tfaxeq flowsheetSammantha Ortiz PTNOMS CI PTStart: 01-25-2025 End: 84-08-7695ajwcavtpahPlmqcgjwp Ortiz PTNOMS CI PTComment on above:Right knee pain, unspecified chronicity (Primary Dx); Status post repair of anterior cruciate ligamentStart: 01-20-2025 End: 93-68-0396ykftbjcwtvFfmtwvh Kelbley PTANOMS CI PTComment on above:Right knee pain, unspecified chronicity (Primary Dx); Status post repair of anterior cruciate ligamentStart: 01-18-2025 End: 60-79-1519gpxrsudvcnJSVGLTH KELBLEYNot AvailableStart: 01-06-2025 End: 24-50-8672mwisethjpyDfoorcf Lawrence PTANOMS CI PTComment on above:Right knee pain, unspecified chronicity (Primary Dx); Status post repair of anterior cruciate ligamentStart: 01-04-2025 End: 48-26-9958swheoefwbwGnbdzdsbi Ortiz PTNOMS CI PTComment on above:Right knee pain, unspecified chronicity (Primary Dx); Status post repair of anterior cruciate ligamentStart: 12-31-2024 End: 12-48-5834afrejpqnqwCFUVYRD LAWRENCENot AvailableStart: 12-28-2024 End: 80-31-9972iuznnirlajFuycdbcdg Ortiz PTNOMS CI PTComment on above:Right knee pain, unspecified chronicity (Primary Dx); Status post repair of anterior cruciate ligamentStart: 12-23-2024 End: 33-16-5072Fgzbjk Honey Flores PTANOMS CI PTStart: 12-23-2024 End: 46-42-4844Xqocqc Honey Flores PTANOMS CI PTStart: 12-23-2024 End: 13-80-4803jshgjxktnrGnxdumf Lawrence PTANOMS CI PTComment on above:Right knee pain, unspecified chronicity (Primary Dx); Status post repair of anterior cruciate ligamentStart: 12-21-2024 End: 10-41-5714Wygvkt flowsheetDione Vo PTANOMS CI PTStart: 12-21-2024 End: 00-24-4475Xrtuel flowsheetDione Vo PTANOMS CI PTStart: 12-21-2024 End: 73-98-2835joqldtbqwlHouridn Kelbley PTANOMS CI PTComment on above:Right knee pain, unspecified chronicity (Primary Dx); Status post repair of anterior cruciate ligamentStart: 12-17-2024 End: 79-20-1326Votkjx Honey Flores PTANOMS CI PTStart: 12-17-2024 End: 01-68-7471Ilyihj Honey Flores PTANOMS CI PTStart: 12-17-2024 End: 40-60-2115flvyciyoryAlzdsjx Lawrence PTANOMS CI PTComment on above:Right knee pain, unspecified chronicity (Primary Dx); Status post repair of anterior cruciate ligamentStart: 12-14-2024 End: 38-64-6886Mleegj flowsheetSammakris Ortiz PTNOMS CI PTStart: 12-14-2024 End: 94-10-1008Envrou flowsheetSammantha Ortiz PTNOMS CI PTStart: 12-14-2024 End: 45-41-8946fjnfxgsyohTlijbmqje Ortiz PTNOMS CI PTComment on above:Right knee pain, unspecified chronicity (Primary Dx); Status post repair of anterior cruciate ligamentStart: 11-30-2024 End: 74-67-4581Uieotkuhw encounterSammantha Ortiz PTNOMS CI PTComment on above:CX of PT tomorrowStart: 11-29-2024 End: 97-46-2260Ahwqtt flowsheetRusty Flores PTANOMS CI PTStart: 11-29-2024 End: 97-13-6725Kkyxjf ronnieheetRusty Flores PTANOMS CI PTStart: 11-29-2024 End: 89-37-6678hvpeitpgwrJmfkmsz Lawrence PTANOMS CI PTComment on above:Right knee pain, unspecified chronicity (Primary Dx); Status post repair of anterior cruciate ligamentStart: 11-23-2024 End: 07-40-9032Byowpe flowsheetSammantha Ortiz PTNOMS CI PTStart: 11-23-2024 End: 31-62-6197Beequk flowsheetSammantha Ortiz PTNOMS CI PTStart: 11-23-2024 End: 01-79-8177rhcfyvucvvOzpbltdeg Ortiz PTNOMS CI PTComment on above:Right knee pain, unspecified chronicity (Primary Dx); Status post repair of anterior cruciate ligamentStart: 11-03-2024 End: 24-18-1817Uqrgjc flowsheetOlayinka JACOB Work Phone: NOMS ORTHOStart: 11-03-2024 End: 43-81-7427Yrgnrc flowsAndrew JACOB Work Phone: NOMS ORTHOStart: 11-03-2024 End: 58-98-7437Unkysnj encounter procedureOlayinka JACOB Work Phone: NOMS NB ORTHOComment on above:Status post reconstruction of anterior cruciate ligament (Primary Dx)Start: 11-03-2024 End: 62-95-1572lruydbxhzwAIGF D HILLSNot AvailableStart: 10-12-2024 End: 74-97-8372Gvpwqmndj encounterSammantkiko Ortiz PTNOMS CI PTComment on above:re: [facility] RFS; FU; FU re: time delay; [facility] Auth ReceivedStart: 10-08-2024 End: 36-82-2077Snrhwp flowsheetSammantha Ortiz PTNOMS CI PTStart: 10-08-2024 End: 09-69-6831Iozami flowsheetSammantha Ortiz PTNOMS CI PTStart: 10-08-2024 End: 10-58-4859lnvddljuetZqhibiaqv Ortiz PTNOMS CI PTComment on above:Right knee pain, unspecified chronicity (Primary Dx); Status post repair of anterior cruciate ligamentStart: 10-07-2024 End: 10-02-5219Oncoacbde encounterMichael Lazaro Rubio DO Work Phone: noms NB ORTHOComment on above:[facility]-PTStart: 10-05-2024 End: 54-82-8816Zqwger flowsheetSammantha Ortiz PTNOMS CI PTStart: 10-05-2024 End: 69-15-2005Kffjcq flowsheetSammantha Ortiz PTNOMS CI PTStart: 10-05-2024 End: 49-22-9435tyfimbnkuqIkydsylgo Ortiz PTNOMS CI PTComment on above:Right knee pain, unspecified chronicity (Primary Dx); Status post repair of anterior cruciate ligamentStart: 09-30-2024 End: 23-90-3786Qlsczm flowsheetMarshall Brink PTANOMS CI PTStart: 09-30-2024 End: 11-54-6052Vszqyw flowsheetMarshall Brink PTANOMS CI PTStart: 09-30-2024 End: 40-45-4068dgxfubypxdIvfxyuby Brink PTANOMS CI PTComment on above:Right knee pain, unspecified chronicity (Primary Dx); Status post repair of anterior cruciate ligamentStart: 09-27-2024 End: 55-47-7050Odbgfm flowsheetRusty Flores PTANOMS CI PTStart: 09-27-2024 End: 50-63-9487Rtxhdb Honey RAMSEY CI PTStart: 09-27-2024 End: 07-82-2633zlidiqqjlvVvbbntsJojo RAMSEY CI PTComment on above:Right knee pain, unspecified chronicity (Primary Dx); Status post repair of anterior cruciate ligamentStart: 09-20-2024 End: 16-16-0107Bqmbal flowsheetMichael T Rubio DO Work Phone: NOMS ORTHOStart: 09-20-2024 End: 52-37-1081Fuvtxa flowsheetMichael T Rubio DO Work Phone: NO[facility] ORTHOStart: 09-20-2024 End: 47-46-8105zrhxznfshbKhipiziaw Ortiz PTNOMS CI PTComment on above:Right knee pain, unspecified chronicity (Primary Dx); Status post repair of anterior cruciate ligamentStart: 09-17-2024 End: 86-44-0732Uaizec Honey RAMSEY CI PTStart: 09-17-2024 End: 88-62-7122Iizvrl Honey RAMSEY CI PTStart: 09-17-2024 End: 74-09-0460xfowsfpuqgMamoryqJojo RAMSEY CI PTComment on above:Right knee pain, unspecified chronicity (Primary Dx); Status post repair of anterior cruciate ligamentStart: 09-13-2024 End: 33-28-4823chsoiovgccHcjvanpJojo RAMSEY CI PTComment on above:Right knee pain, unspecified chronicity (Primary Dx); Status post repair of anterior cruciate ligamentStart: 09-09-2024 End: 25-49-9112Wpxnza flowsheetSammantha Ortiz PTNOMS CI PTStart: 09-09-2024 End: 94-08-7988Lxkwth flowsheetSammantha Ortiz PTNOMS CI PTStart: 09-09-2024 End: 50-65-2982emzllzxmetGtxximrqj Ortiz PTNOMS CI PTComment on above:Right knee pain, unspecified chronicity (Primary Dx); Status post repair of anterior cruciate ligamentStart: 09-06-2024 End: 54-93-5311Umujpt Honey Flores PTANOMS CI PTStart: 09-06-2024 End: 73-48-2747Cksxgu Honey Flores PTANOMS CI PTStart: 09-06-2024 End: 86-09-8353kpfsqvswjaHkzugjv Lawrence PTANOMS CI PTComment on above:Right knee pain, unspecified chronicity (Primary Dx); Status post repair of anterior cruciate ligamentStart: 09-02-2024 End: 35-87-0744Vqgvwb flowsheetMichael T Rubio DO Work Phone: NOMS ORTHOStart: 09-02-2024 End: 00-73-4416Qjqmdb flowsheetMichael T Rubio DO Work Phone: NOMS ORTHOStart: 09-02-2024 End: 99-40-7261Omdkhpe encounter procedureMichael T Rubio DO Work Phone: NOMS NB ORTHOComment on above:Acute injury of right anterior cruciate ligament, subsequent encounter (Primary Dx)Start: 09-02-2024 End: 17-18-5284xpvwvortllFhpedzc Lawrence PTANOMS CI PTComment on above:Right knee pain, unspecified chronicity (Primary Dx); Status post repair of anterior cruciate ligamentStart: 08-30-2024 End: 83-71-0411Awmucc flowsheetSammantha Ortiz PTNOMS CI PTStart: 08-30-2024 End: 91-64-0438Zvsxkw flowsheetSammantha Ortiz PTNOMS CI PTStart: 08-30-2024 End: 92-67-3214gljamygdmrJmwlubtar Ortiz PTNOMS CI PTComment on above:Right knee pain, unspecified chronicity (Primary Dx); Status post repair of anterior cruciate ligamentStart: 08-26-2024 End: 35-79-7716Tnwqle Honey Flores PTANOMS CI PTStart: 08-26-2024 End: 57-42-1609Aebcqq Honey Flores PTANOMS CI PTStart: 08-26-2024 End: 80-55-3264wqomuxtrvmHcfnmce Lawrence PTANOMS CI PTComment on above:Right knee pain, unspecified chronicity (Primary Dx); Status post repair of anterior cruciate ligamentStart: 08-23-2024 End: 06-95-6665Yphgqd Honey Flores PTANOMS CI PTStart: 08-23-2024 End: 53-39-5439Lenvyp Honey Flores PTANOMS CI PTStart: 08-23-2024 End: 20-74-7602hzyercdgwfCgqshsp Lawrence PTANOMS CI PTComment on above:Status post repair of anterior cruciate ligament (Primary Dx); Right knee pain, unspecified chronicityStart: 08-18-2024 End: 51-46-2963Cipmkb Honey Flores PTANOMS CI PTStart: 08-18-2024 End: 99-98-8409Xdllnl Honey Flores PTANOMS CI PTStart: 08-18-2024 End: 98-00-6238frumhaopgyRjvshbt Lawrence PTANOMS CI PTComment on above:Status post repair of anterior cruciate ligament (Primary Dx); Right knee pain, unspecified chronicityStart: 08-12-2024 End: 94-24-1216Dgmmrm flowsheetSammantkiko Ortiz PTNOMS CI PTStart: 08-12-2024 End: 56-68-4653Cpvigu flowsheetSammantkiko Ortiz PTNOMS CI PTStart: 08-12-2024 End: 53-46-1177agirnillsjRcglghkyk Schneider PTNOMS CI PTComment on above:Status post repair of anterior cruciate ligament (Primary Dx); Right knee pain, unspecified chronicityStart: 08-06-2024 End: 35-87-6777Mwqnzhwhc encounterJeelyssa Vaca PT Work Phone: noms CI PTComment on above:[facility] ([facility]ried [facility] contact to schedule [facility] Rolanda thru [facility], 15 visits 08/05-12/15/24, but had to lm req uesting a call back to do so.); Call Back (She contacted and we scheduled her out; 08/12 w/ Kristian Ortiz PT, Rolanda.)re: Brace (She called regarding she was [facility], but given the fit and weight, and ability w/ movement she is seeking to either purchase a new one or if Dr. Rubio could order one for her. She did note at her fu Dr. Rubio, he was thrown back due to the braces are more updated and more adaptable. She had called in request of purchasing / or being accommodated w/ a new one. She asked if she could receive a reply w/ more information detailing the subject. Thank you)Start: 08-05-2024 End: 03-84-2833ikaaxiephcDCXRFYX T POWERSNot AvailableStart: 08-05-2024 End: 47-42-9272Rbvhchs encounter procedureMichael T Rubio DO Work Phone: noms NB ORTHOComment on above:Acute pain of right knee (Primary Dx)Start: 08-05-2024 End: 64-23-9754bnzxxcbxzmMZERFME T POWERSNot AvailableStart: 07-26-2024 End: 71-27-3001Cjdlpkyvc to same day surgery centerMichael T Rubio [facility] Start: 07-26-2024 End: 12-29-6757fysqdfdehrMqwlfjl T PowersFacility:FTMCStart: 07-12-2024 End: 17-00-5043pfjreprjakYurgake T PowersFacility:FTMCStart: 07-12-2024 End: 28-56-4223Qgcaxol encounter procedureMichael T Rubio [facility] Start: 07-06-2024 End: 73-62-7359Pjvgbmw encounter procedureMichael T Rubio DO Work Phone: noms NB ORTHOComment on above:Pre-op testing (Primary Dx); Acute pain of right kneeStart: 07-06-2024 End: 66-63-8007Yxppqyz encounter statusMichael T Rubio DO Work Phone: noms HealthcareStart: 07-06-2024 End: 24-49-4387toqxnaolrbHNTJTAA T POWERSNot AvailableStart: 04-30-2024 End: 62-57-9294Robanly encounter procedureMD Terri Garcia Work Phone: [facility] [place] Work Phone: Start: 04-30-2024 End: 42-27-5440oaqcwzezuhYH Terri Garcia Work Phone: [facility] Work Phone: Start: 25-17-4574Upp-patient / Non-visitMD Terri Garcia Work Phone: [facility] [employer] Work Phone: Start: 11-11-2023 End: 17-28-4308mpaafgpiruNszsme Braun Other [employer] Other Start: 79-14-9231Fywkpwujs encounterMarcijame PaytonG Referral CoordinatorStart: 10-31-2023 End: 11-16-8312enseqgilhnUtxvyf Braun Other [employer] Other Start: 05-44-4537Sighqacub encounterMarcijame PaytonG Referral CoordinatorStart: 10-29-2023 End: 49-33-5533qrbdxkioyuDdhyxn Braun Other [employer] Other Start: 41-66-9379Eltspgman encounterMarcia FitoG [facility] Hospitaltart: 10-09-2023 End: 76-57-2250ixlkjvkimzLelkfo Braun Other [employer] Other Start: 00-80-3196Tkbjnsnai encounterMarcijame PaytonG Referral CoordinatorStart: 10-01-2023 End: 57-56-4510hwiawspiikHuaap Bailey Other [employer] Other start: 17-28-8226Mkqjldoss encounterKenakia Mcgowan OrthopedicsStart: 08-19-2023 End: 09-70-3682Noqdbzo encounter procedureMD Terri Garcia Work Phone: [facility] [place] Work Phone: Start: 08-19-2023 End: 83-92-0430dmixcpudrcKJ Terri Garcia Work Phone: [facility] Work Phone: Start: 88-18-9157Zjqkoh outpatient new 45 minutesKenakia Mcgowan OrthopedicsStart: 08-14-2023 End: 64-07-3963Fesqzxl encounter procedureDO Dhruv Rodríguez Work Phone: [facility] Start: 08-14-2023 End: 63-05-8316tweqpbozfkYacqs A [facility] Work Phone: Start: 04-09-2023 End: 31-36-2733zeoxttereeCdwurk Braun Other [employer] Other Start: 34-72-3870Wiolanmwd encounterMarcia RadhaMarymount Hospital ClinicStart: 03-04-2023 End: 86-99-9640qbinommrlaGneaow Braun Other [employer] Other Start: 05-87-4850Otynvuuna for general adult medical examination without abnormal findingsMarcia [facility] ClinicStart: 54-87-1695Zfmlehs preventive medicine new pt age 18-39yrsMarcia RadhaHoly Cross Hospital Medical ClinicStart: 69-75-9448Dmtmlokrx encounterMarcia RadhaMarymount Hospital ClinicStart: 08-23-2022 End: 47-97-2122Rakumcy encounter procedureMaher LINARES [facility] Start: 08-06-2022 End: 43-69-0047Veyufap encounter procedureBeth Jame Pickens [facility] Start: 07-29-2022 End: 08-53-8718LaricmxgqPdmnb SALAM [facility] Procedures DateProcedureProcedure DetailPerforming ClinicianStart: 97-97-7950Gkgknxxvmh examination knee 1/2 viewsMichael T Rubio DO Work Phone: Start: 20-17-2688Drhivohpvofw of kneeMichael Rubio Start: 55-89-2650HXZ of right kneeMD Terri Garcia Work Phone: Start: 55-10-3121UVG of left ankleMD Terri Garcia Work Phone: Start: 15-74-3887D-ray of left ankleDO Dhruv Rodríguez Work Phone: Start: 39-54-4868R-ray of left footDO Dhruv Rodríguez Work Phone: Start: 97-61-3547U-ray of right footDO Dhruv Rodríguez Work Phone: Start: 31-59-8087RyeltxuqmrcyjjufsivrtfuwlaIjkor SALAM Augmentation mammoplastyBemaryana Celio Comment on above:2021Extraction of wisdom toothMichael Rubio History of operative procedure on kneeStatus post reconstruction of anterior cruciate ligamentTodeborah JACOB Work Phone: History of reconstruction of anterior cruciate ligament tearStatus post repair of anterior cruciate ligamentSammantha Angel PTHistory of reconstruction of anterior cruciate ligament tearStatus post repair of anterior cruciate ligamentKennetlyndsay Flores PTAHistory of reconstruction of anterior cruciate ligament tearStatus post repair of anterior cruciate ligamentSaint [facility] PTAHistory of reconstruction of anterior cruciate ligament tearStatus post repair of anterior cruciate ligamentSaint Elizabeth [facility] PTAHistory of reconstruction of anterior cruciate ligament tearStatus post repair of anterior cruciate ligamentSammantha Ortiz PTHistory of reconstruction of anterior cruciate ligament tearStatus post repair of anterior cruciate ligamentSaint Elizabeth [facility] PTAHistory of reconstruction of anterior cruciate ligament tearStatus post repair of anterior cruciate ligamentSaint Elizabeth [facility] PTAHistory of reconstruction of anterior cruciate ligament tearStatus post repair of anterior cruciate ligamentSaint Elizabeth [facility] PTAHistory of reconstruction of anterior cruciate ligament tearStatus post repair of anterior cruciate ligamentSammantha Ortiz PTHistory of reconstruction of anterior cruciate ligament tearStatus post repair of anterior cruciate ligamentSaint Elizabeth [facility] PTAHistory of reconstruction of anterior cruciate ligament tearStatus post repair of anterior cruciate ligamentSammantha Ortiz PTHistory of reconstruction of anterior cruciate ligament tearStatus post repair of anterior cruciate ligamentSaint Elizabeth [facility] PTAHistory of reconstruction of anterior cruciate ligament tearStatus post repair of anterior cruciate ligamentMarshsierra vista hospital Brink PTAHistory of reconstruction of anterior cruciate ligament tearStatus post repair of anterior cruciate ligamentSammantha Ortiz PTHistory of reconstruction of anterior cruciate ligament tearStatus post repair of anterior cruciate ligamentSammantha Ortiz PTHistory of reconstruction of anterior cruciate ligament tearStatus post repair of anterior cruciate ligamentSammantha Ortiz PTHistory of reconstruction of anterior cruciate ligament tearStatus post repair of anterior cruciate ligamentSaint Elizabeth [facility] PTAHistory of reconstruction of anterior cruciate ligament tearStatus post repair of anterior cruciate ligamentSammantha Ortiz PTHistory of reconstruction of anterior cruciate ligament tearStatus post repair of anterior cruciate ligamentSaint Elizabeth [facility] PTAHistory of reconstruction of anterior cruciate ligament tearStatus post repair of anterior cruciate ligamentMelissa Kelbley PTAHistory of reconstruction of anterior cruciate ligament tearStatus post repair of anterior cruciate ligamentSaint Elizabeth [facility] PTAHistory of reconstruction of anterior cruciate ligament tearStatus post repair of anterior cruciate ligamentSammantha Ortiz PTHistory of reconstruction of anterior cruciate ligament tearStatus post repair of anterior cruciate ligamentSammantha Ortiz PTHistory of reconstruction of anterior cruciate ligament tearStatus post repair of anterior cruciate ligamentKenneth Mark PTAHistory of reconstruction of anterior cruciate ligament tearStatus post repair of anterior cruciate ligamentMelissa Enatita PTAHistory of reconstruction of anterior cruciate ligament tearStatus post repair of anterior cruciate ligamentSammantkiko Ortiz PTHistory of reconstruction of anterior cruciate ligament tearStatus post repair of anterior cruciate ligamentKentishah Mark PTAHistory of reconstruction of anterior cruciate ligament tearStatus post repair of anterior cruciate ligamentSzuleyma Ortiz PT Plan of Treatment DateCare ActivityDetailAuthorStart: 02-08-2025 End: 41-03-5100yiwzztkvguMHBY CI PTComment on above:ArrivedStart: 02-01-2025 End: 17-17-3980rnlxshwmls72/08/2025 8:30 AM EDT Treatment [facility] [address] [facility] [address] [place] [address] Rusty Flores PTANOMS CI PTStart: 01-25-2025 End: 44-59-7293veizzzsalpHFBB CI PTComment on above:ArrivedStart: 01-20-2025 End: 16-61-2925yhqtoeasvuFROP CI PTStart: 01-18-2025 End: 13-99-7622psevtcvfceVIHR CI PTStart: 01-14-2025 End: 59-76-2713izcpvdaocf60/21/2025 8:30 AM EDT Treatment [facility] [address] [facility] [address] [place] [address] Rusty Flores PTANOMS CI PTStart: 01-11-2025 End: 21-11-6008thxuqwoyxd75/18/2025 9:00 AM EDT Treatment [facility] [address] [place] [address] Fide Ortiz PTNOMS CI PTStart: 01-06-2025 End: 52-60-9817qxeeuojzxg86/13/2025 9:00 AM EDT Treatment [facility] [address] [facility] [address] [place] [address] Rusty Flores PTANOMS CI PTStart: 01-04-2025 End: 03-56-8936zbfqkmplre74/11/2025 9:00 AM EDT Treatment [facility] [address] [facility] [address] [place] [address] Fide Ortiz PTNOMS CI PTStart: 12-31-2024 End: 08-49-7478qoruktfbsmMRGW CI PTStart: 12-29-2024 End: 79-24-7754imefsrlmlb72/05/2025 9:00 AM EST Treatment [facility] [address] [facility] [address] [place] [address] Rusty Flores PTANOMS CI PTStart: 12-28-2024 End: 61-70-6728txykeoattm55/04/2025 9:00 AM EST Treatment [facility] [address] [facility] [address] [place] [address] Fide Ortiz PTNOMS CI PTStart: 12-23-2024 End: 96-96-2235ooemmqwgnfYVQU CI PTComment on above:Right knee pain, unspecified chronicity (Primary Dx); Status post repair of anterior cruciate ligamentStart: 12-21-2024 End: 21-83-5265mukrsznnzdPOPL CI PTStart: 12-17-2024 End: 64-11-7609virphxfknu70/21/2025 8:30 AM EST Treatment [facility] [address] [facility] [address] [place] [address] Rusty Flores PTANOMS CI PTStart: 12-14-2024 End: 77-67-6487nncldsfely43/18/2025 9:00 AM EST Treatment [facility] [address] [facility] [address] [place] [address] Fide Ortiz PTNOMS CI PTStart: 12-09-2024 End: 12-95-5657fkeshdwnaz45/13/2025 9:00 AM EST Treatment [facility] [address] [facility] [address] [place] [address] Rusty Flores PTANOMS CI PTStart: 12-07-2024 End: 96-81-8066htftlufpts08/11/2025 9:00 AM EST Treatment [facility] [address] [place] [address] Fide Ortiz PTNO CI PTStart: 12-01-2024 End: 24-07-4842bvhkmiiwmp02/05/2025 8:30 AM EST Treatment [facility] [address] [place] [address] Fide Ortiz PTNOMS CI PTStart: 11-29-2024 End: 22-32-9953xwufracpwfJVKL CI PTComment on above:ArrivedStart: 11-25-2024 End: 38-38-9747ldmbdxwvrr90/30/2025 9:30 AM EST Treatment [facility] [address] [facility] [address] [place] [address] Rusty Flores PTANOMS CI PTStart: 11-23-2024 End: 01-75-7135gcfkenyilt17/28/2025 8:30 AM EST Treatment [facility] [address] [place] [address] Fide Ortiz PTNO CI PTStart: 11-03-2024 End: 57-49-7197Dzgvgsb encounter procedureNOMS NB ORTHOComment on above:Arrived Start: 10-08-2024 End: 69-28-7536mumyzpbvhs28/13/2024 1:30 PM EST Treatment [facility] [address] [facility] [address] [place] [address] Fide Ortiz PTNO CI PTStart: 10-05-2024 End: 20-11-7694hmlhmfmmgi86/10/2024 9:30 AM EST Treatment [facility] [address] [facility] [address] [place] [address] Fide Ortiz PTNOMS CI PTStart: 09-30-2024 End: 89-09-4653krrnortxvdWKXI CI PTComment on above:ArrivedStart: 09-27-2024 End: 95-89-9133pakjnznkxdVCUH CI PTComment on above:ArrivedStart: 09-21-2024 End: 46-86-7139sgokryopcl34/26/2024 9:30 AM EST Treatment [facility] [address] [facility] [address] [place] [address] Fide Ortiz PTNOMS CI PTStart: 09-20-2024 End: 68-33-6077bjsorugdnpWFIQ CI PTStart: 09-17-2024 End: 30-74-6296wdafjxllqe00/22/2024 1:00 PM EST Treatment [facility] [address] [facility] [address] [place] [address] Rusty Flores PTANOMS CI PTStart: 09-09-2024 End: 46-31-5169tbtfnohipt17/14/2024 9:30 AM EST Treatment [facility] [address] [facility] [address] [place] [address] Fide Ortiz PTNOMS CI PTStart: 09-06-2024 End: 82-04-6380lwcbiflvay21/11/2024 9:30 AM EST Treatment [facility] [address] [facility] [address] [place] [address] Rusty Flores PTANOMS CI PTStart: 09-02-2024 End: 48-95-8189wlwcbytxmg65/07/2024 1:00 PM EST Treatment [facility] [address] [facility] [address] [place] [address] Rusty Flores PTANOMS CI PTStart: 09-02-2024 End: 69-89-0544Oypgjgi encounter procedureNOMS NB ORTHOComment on above:Acute injury of right anterior cruciate ligament, subsequent encounter (Primary Dx) Start: 08-30-2024 End: 70-14-6506zswylbrtroMKQM CI PTComment on above:Right knee pain, unspecified chronicity (Primary Dx); Status post repair of anterior cruciate ligamentStart: 08-26-2024 End: 24-81-5339yjskdyljyl80/31/2024 10:00 AM EDT Treatment [facility] [address] [facility] [address] [place] [address] Rusty Flores PTANOMS CI PTStart: 08-23-2024 End: 90-40-8643phencaknxx33/28/2024 1:30 PM EDT Treatment [facility] [address] [facility] [address] [place] [address] Rusty Flores PTANOMS CI PTStart: 08-18-2024 End: 52-29-1361ndabewxinl74/23/2024 9:00 AM EDT Treatment [facility] [address] [facility] [address] [place] [address] Rusty Flores PTANOMS CI PTStart: 08-12-2024 End: 75-76-6912fdcngyufxr08/17/2024 10:30 AM EDT Evaluation [facility] [address] [facility] [address] [place] [address] Fide Ortiz PTNOMS CI PTStart: 07-26-2024 End: 06-12-5704Fyipobj encounter cpkzpfacp13/30/2024 12:45 PM EDT Procedure Visit [facility] EXT DEP Ty, Wade [place], [address] [facility] [place] [address] N[facility] EXT DEPStart: 07-12-2024 End: 47-15-3875Blbjtmwxcf complete panel - UrineUrinalysis with reflex microscopic Lab Routine Pre-op testing Expected: 07/12/2024, Expires: 07/06/2025 [facility] Healthcare Work Phone: Comment on above:Expected: 07/12/2024, Expires: 07/06/2025 Immunizations Immunization DateImmunizationNotesCare ProviderFacilityNEGATED: Highlighted row has not occurred!57-49-2167kxilbkdhp virus vaccine, unspecified formulationBeth Celio [phone]-MrpohTrumbull [facility] Payers DatePayer CategoryPayerPolicy [id number] Health InsuranceOPTPRES[facility] [id number] [place] CC[place] OPTPRES[facility] [id number] 2024-Present [address] [place] [address] [id number] [id number] Department of Defense ( and others)[id number] [id number] 24-40-5738Dlua-[id number] 2.0.1.225174.3.579.2.727 [id number] 2.0.1.069620.3.579.[id number] 2.0.1.447224.3.579.2.02362-63-0130Ofastkv0084309 2.0.1.602396.3.579.2.[id number] 2.840.1.701124.3.579.2.531449-51-9112Lrzoepk9000683 2.16.840.1.776031.3.579.2.597628-44-5062Jqweiiq6978707 2.16.840.1.352131.3.579.2.561231-59-8907Mfkndvo9253824 2.16.840.1.479131.3.579.[id number] 2.16.840.1.388025.3.579.2.888026-98-2348Bdljqln4710134 2.16.840.1.601414.3.579.2.482521-64-3427Dfrpxjq3920735 2.16840.1.069091.3.579.2.059543-17-5324Roxbsws4028660 2.16840.1.453407.3.579.2.936190-70-6506Anxwuyz9460996 2.16840.1.440619.3.579.2.576033-34-0221Jikduug2369228 2.16.840.1.629262.3.579.2.704172-74-2702Zhbtjyt8694983 2.16840.1.109918.3.579.2.890006-24-0973Zbvmcdm3257938 2.16.840.1.621643.3.579.2.816427-07-9340Aatavjm4472515 2.16.840.1.018995.3.579.2.825029-85-7131Ndmdpif2745325 2.16.840.1.975675.3.579.2.378470-51-7866Bokbcex8638276 2.16.840.1.443997.3.579.2.163667-69-5031Rsmlocs2967989 2.16.840.1.408007.3.579.2.133755-96-4780Jmijxho4970313 2.16.840.1.289157.3.579.2.768791-70-1588Scxvfgc0402761 2.16.840.1.227204.3.579.2.998276-57-9755Ibkqdvv5856439 2.16840.1.946990.3.579.2.784465-42-0392Aameamq7937578 2.0.1.561172.3.579.2.896129-41-8772Dgephpr8603219 2.840.1.863578.3.579.2.403553-52-4536Ylpsxkg7920883 2.840.1.158792.3.579.2.285307-11-2379Kpnyigm9123056 2.840.1.923875.3.579.2.213745-01-2483Bnbggtl9413320 2.840.1.112520.3.579.2.151781-22-0271Ikxtmjd3735145 2.840.1.396351.3.579.2.931572-04-5360Jsmdqfz0902493 2.0.1.356213.3.579.2.666193-84-1707Qbomqem8428024 2.840.1.208207.3.579.2.341258-19-8043Vxiygii9575968 2.840.1.233290.3.579.2.493902-33-6977Qenamlx8126137 2.840.1.817817.3.579.2.521216-39-9728Ylefycy5472203 2.840.1.250873.3.579.2.524246-08-7205Cdauwot3743617 2..0.1.347287.3.579.2.820508-94-8927Cmzxshi2401281 2.16.840.1.731272.3.579.2.821249-45-6222Keqrsfj5089318 2..840.1.102841.3.579.2.157303-81-9677Gdfdqpu8754071 2.16.840.1.442701.3.579.2.261136-27-2020Mszixue9211533 2..840.1.576930.3.579.2.601751-98-3789Buyxzwc5245715 2.16.840.1.206800.3.579.2.9887Udiundi55838146 2.840.1.260643.3.579.2.531 Tocugcc97106054 2.16840.1.879642.3.579.2.512Bedkfad91947376 2.840.1.906183.3.579.2.531 Social History DateTypeDetailFacilityStart: 07-29-2022 End: 95-25-9668Yvxufzr smoking statusNever smoked tobacco (finding)[facility] Digestive HealthTobacco smoking statusNeverTrumbull Regional Medical Center Digestive HealthStart: 08-05-2024 End: 29-55-6336Vck [facility] At [facility] Daytontart: 43-92-5998Vok Assigned At [facility] Centertart: 35-82-9381Vjbiqqd use and exposureSmokeless tobacco non-userNOMS Healthcare Start: 08-05-2024 End: 63-30-8697Qidsivnoq beverage intakeCurrent drinker of alcohol (finding)[facility] HealthcareStart: 08-05-2024 End: 85-39-9818Atxvsnl of Social functionNOMS HealthcareStart: 44-94-7049Gdcylfs Commentonlena regalado [facility] HospitalStart: 41-70-8858Kvh assigned at birthNot on [facility] Medical Equipment Procedure CodeEquipment CodeEquipment Original TextEquipment IdentifierDatesKNEE ARTHROSCOPY W/ ACL REPAIR Wade Rubio DO 07/26/24 Non Biological Knee R {01}[id number]{[id number]{[id number] FDAStart: 07-26-2024 Functional Status QpdpSkqslwpixjYedifwIcpeokgk57-84-6202Gckmoykaoc StatusNoFisher - [facility] CenterSswoni92-91-6847Opsbjonexj StatusN/AFisher - [facility] Clinical Notes 08-23-2022 to 02-08-2025 Note Date & ElufDcoxZosrzvol07-17-6921 History of Present illness Narrative* Fide Ortiz, PT - 02/08/2025 9:00 AM EDT Images from the original note were not included. Physical Therapy Treatment Visit Patient Name: Jania Scott Today's Date: 02/08/2025 Encounter Diagnoses Name Primary? Right knee pain, unspecified chronicity Yes Status post repair of anterior cruciate ligament Visit number: 15 Timed Code Treatment: 55 minutes Total Treatment Time: 70 minutes Time In: 9:00 AM Time Out: 10:21 AM History: Pt presents to PT following right ACL repair on 07/26/24. Pt compliant with use of brace. States she continues with swelling in right LE. Has a compression sleeve that she has been sleeping. Also taking ibuprofen to keep swelling down. 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 Precautions: [place] Subjective: Pt states she was working more single leg activities at the gym this week. States this is the first she was able to really focus on single leg exercises vs double leg. Has been busy getting house prepared for selling and hasn't been to the gym as much as usual. Pain: denies present, up to 4/10 post activity Objective: PT Evaluation (11/23/2024) RIGHT KNEE AROM: 0 to 119 degrees in supine PROM: 3 degrees hyperextension, 121 degrees flexion; left knee 153 degrees flexion Strength: knee flexion with single leg squat: right 79 degrees; left 98 degrees Muscle length: prone knee flexion: right 120 degrees, left 141 degrees Single Leg Hop: Right 81 cm, left 124 cm Functional: single leg press at 100lbs: right 7 reps; left 14 reps Treatment Manual Therapy: () Passive ROM, Joint mobilization, Soft Tissue Mobilization, Myofascial Release, Muscle Energy Technique, Neural Mobilization, Myofascial Cupping, Dry Needling, IASTM, and Scar mobilization as needed. Therapeutic Exercise: (40 minutes supervised) Guided pt through ther and flex ex per grid to improve right quad LE Strength, Endurance, Flexibility, ROM, HEP, Neural Mobilization, Power, and Core Stability as needed. All exercises performed without use of knee brace. Therapeutic Activity: (15 minutes supervised ) Exercises to improve dynamic activities, functional tasks, functional mobility to return to prior activity level as needed. Neuromuscular re-education: () static and dynamic balancing activity using various surfaces to improve right LE proprioception and eccentric quad control per grid Modalities: IFC/CP x15 minutes for pain relief. Heat, Ice, Electrical Stimulation, Ultrasound, Cervical Mechanical Traction, Lumbar Mechanical Traction, Iontophoresis, and Fluidotherapy as needed. Assessment: Pt has completed 15 PT sessions for right knee pain and weakness post ACL reconstruction surgery performed on 07-26-24. ROM of right knee is 0 to 121 degrees. Pt achieves 87 degrees right knee flexion with single leg squat; 106 degrees left knee flexion with single leg squat. LEFS score:56/80. Will place pt on hold until further treatments have been approved by insurance. Outcome Measure: Lower Extremity Functional Scale (LEFS): 58/80 Rehab Diagnosis: right LE pain and weakness, right LE instability Short Term Goal: To be met in 2 weeks Goal 1: Pt to be instructed in home exercise program. [employer] Goals: To be met in 10 weeks Goal 1: Pt to report independence and compliance with home program. (Progressing) Goal 2: Pt to achieve 145 degrees right knee flexion to assist with functional tasks such as squatting. (Progressing) Goal 3: Pt to demo no greater than 20% deficit with strength testing of right LE with leg press compared to left. Goal 4: Pt to have no greater than 10cm difference with single leg hopping to ensure safe return tosports and coaching. (Progressing) Goal 5: Pt to score no less than 74/80 on LEFS indicating improved QOL. Goal 6: Pt to achieve 95 degrees of right knee flexion with single leg squat indicating improved strength and stability. (Progressing) Pt will benefit from skilled PT for 2-3x/week from 11/23/2024 to 02/01/2025 to address the above impairments. I hereby deem this POC medically necessary. Please sign below. Date: documented in this encounterFitzgibbon [id number] History of Present illness Narrative* Fide Ortiz, PT - 01/25/2025 9:00 AM EDT Images from the original note were not included. Physical Therapy Treatment Visit Patient Name: Jania Scott Today's Date: 01/25/2025 Encounter Diagnoses Name Primary? Right knee pain, unspecified chronicity Yes Status post repair of anterior cruciate ligament Visit number: 13 Timed Code Treatment: 58 minutes Total Treatment Time: 58 minutes Time In: 8:55 AM Time Out: 10:08 PM History: Pt presents to PT following right ACL repair on 07/26/24. Pt compliant with use of brace. States she continues with swelling in right LE. Has a compression sleeve that she has been sleeping. Also taking ibuprofen to keep swelling down. 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 Precautions: [place] Subjective: Pt states she has only been wearing her brace to run; no other activities. Knee feels more stable while running with use of brace. Pain: denies present, up to 4/10 post activity Objective: PT Evaluation (11/23/2024) RIGHT KNEE AROM: 0 to 119 degrees in supine PROM: 3 degrees hyperextension, 121 degrees flexion; left knee 153 degrees flexion Strength: knee flexion with single leg squat: right 79 degrees; left 98 degrees Muscle length: prone knee flexion: right 120 degrees, left 141 degrees Single Leg Hop: Right 81 cm, left 124 cm Functional: single leg press at 100lbs: right 7 reps; left 14 reps Treatment Manual Therapy: () Passive ROM, Joint mobilization, Soft Tissue Mobilization, Myofascial Release, Muscle Energy Technique, Neural Mobilization, Myofascial Cupping, Dry Needling, IASTM, and Scar mobilization as needed. Therapeutic Exercise: (28 minutes supervised) Guided pt through ther and flex ex per grid to improve right quad LE Strength, Endurance, Flexibility, ROM, HEP, Neural Mobilization, Power, and Core Stability as needed. All exercises performed without use of knee brace. Therapeutic Activity: (17 minutes supervised ) Exercises to improve dynamic activities, functional tasks, functional mobility to return to prior activity level as needed. Neuromuscular re-education: (13 minutes supervised ) static and dynamic balancing activity using various surfaces to improve right LE proprioception and eccentric quad control per grid Modalities: Heat, Ice, Electrical Stimulation, Ultrasound, Cervical Mechanical Traction, Lumbar Mechanical Traction, Iontophoresis, and Fluidotherapy as needed. PT Reassess ( 01-12) AROM Right knee flexion 0-121 degrees. S/L squat to 80 degrees. MMT Right knee grossly 4/5, Left knee 5/5. LEFS 58/80 Assessment: Pt has completed 13 PT sessions for right knee pain and weakness post ACL reconstruction surgery performed on 07-26-24. Pt continues with mild valgus collapse of right LE with single leg hopping and jumping. Mild cues during exercises for proper form. Outcome Measure: Lower Extremity Functional Scale (LEFS): 58/80 Rehab Diagnosis: right LE pain and weakness, right LE instability Short Term Goal: To be met in 2 weeks Goal 1: Pt to be instructed in home exercise program. [employer] Goals: To be met in 10 weeks Goal 1: Pt to report independence and compliance with home program. (Progressing) Goal 2: Pt to achieve 145 degrees right knee flexion to assist with functional tasks such as squatting. (Progressing) Goal 3: Pt to demo no greater than 20% deficit with strength testing of right LE with leg press compared to left. Goal 4: Pt to have no greater than 10cm difference with single leg hopping to ensure safe return tosports and coaching. (Progressing) Goal 5: Pt to score no less than 74/80 on LEFS indicating improved QOL. Goal 6: Pt to achieve 95 degrees of right knee flexion with single leg squat indicating improved strength and stability. (Progressing) Pt will benefit from skilled PT for 2-3x/week from 11/23/2024 to 02/01/2025 to address the above impairments. I hereby deem this POC medically necessary. Please sign below. Date: documented in this encounterFitzgibbon [id number] History of Present illness Narrative* Fide Ortiz, PT - 01/04/2025 9:00 AM EDT Images from the original note were not included. Physical Therapy Treatment Visit Patient Name: Jania Scott Today's Date: 01/04/2025 Encounter Diagnoses Name Primary? Right knee pain, unspecified chronicity Yes Status post repair of anterior cruciate ligament Visit number: 9 Timed Code Treatment: 58 minutes Total Treatment Time: 78 minutes Time In: 8:50 AM Time Out: 10:13 AM History: Pt presents to PT following right ACL repair on 07/26/24. Pt compliant with use of brace. States she continues with swelling in right LE. Has a compression sleeve that she has been sleeping. Also taking ibuprofen to keep swelling down. 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 Precautions: [place] Subjective: Pt states she continues with pain in right knee, pain is daily. Knee is sore after PT. Pain denies present, up to 4/10 post activity Objective: PT Evaluation (11/23/2024) RIGHT KNEE AROM: 0 to 119 degrees in supine PROM: 3 degrees hyperextension, 121 degrees flexion; left knee 153 degrees flexion Strength: knee flexion with single leg squat: right 79 degrees; left 98 degrees Muscle length: prone knee flexion: right 120 degrees, left 141 degrees Single Leg Hop: Right 81 cm, left 124 cm Functional: single leg press at 100lbs: right 7 reps; left 14 reps Treatment Manual Therapy: () Passive ROM, Joint mobilization, Soft Tissue Mobilization, Myofascial Release, Muscle Energy Technique, Neural Mobilization, Myofascial Cupping, Dry Needling, IASTM, and Scar mobilization as needed. Therapeutic Exercise: (28 minutes supervised) Guided pt through ther and flex ex per grid to improve right quad LE Strength, Endurance, Flexibility, ROM, HEP, Neural Mobilization, Power, and Core Stability as needed. Performed independently 15 minutes TM walk/jog at end of session with brace on, uns upervised. Therapeutic Activity: (17 minutes supervised ) Exercises to improve dynamic activities, functional tasks, functional mobility to return to prior activity level as needed. Neuromuscular re-education: (13 minutes supervised ) static and dynamic balancing activity using various surfaces to improve right LE proprioception and eccentric quad control per grid Modalities: Heat, Ice, Electrical Stimulation, Ultrasound, Cervical Mechanical Traction, Lumbar Mechanical Traction, Iontophoresis, and Fluidotherapy as needed. Assessment: Pt has completed 9 PT sessions for right knee pain and weakness post ACL reconstructionsurgery performed on 07-26-24. Worked on right knee flexion with ankle pumps at end range this date.Right knee flexion remains limited to 122 degrees. Will continue. Outcome Measure: Lower Extremity Functional Scale (LEFS): 58/80 Rehab Diagnosis: right LE pain and weakness, right LE instability Short Term Goal: To be met in 2 weeks Goal 1: Pt to be instructed in home exercise program. [employer] Goals: To be met in 10 weeks Goal 1: Pt to report independence and compliance with home program. Goal 2: Pt to achieve 145 degrees right knee flexion to assist with functional tasks such as squatting. Goal 3: Pt to demo no greater than 20% deficit with strength testing of right LE with leg press compared to left. Goal 4: Pt to have no greater than 10cm difference with single leg hopping to ensure safe return tosports and coaching. Goal 5: Pt to score no less than 74/80 on LEFS indicating improved QOL. Goal 6: Pt to achieve 95 degrees of right knee flexion with single leg squat indicating improved strength and stability. Pt will benefit from skilled PT for 2-3x/week from 11/23/2024 to 02/01/2025 to address the above impairments. I hereby deem this POC medically necessary. Please sign below. Date: documented in this encounterFitzgibbon [id number] History of Present illness Narrative* Fide Ortiz, PT - 12/28/2024 1:30 PM EST Images from the original note were not included. Physical Therapy Treatment Visit Patient Name: Jania Scott Today's Date: 12/28/2024 Encounter Diagnoses Name Primary? Right knee pain, unspecified chronicity Yes Status post repair of anterior cruciate ligament Visit number: 7 Timed Code Treatment: 55 minutes Total Treatment Time: 65 minutes Time In: 1:30 PM Time Out: 02:38 PM History: Pt presents to PT following right ACL repair on 07/26/24. Pt compliant with use of brace. States she continues with swelling in right LE. Has a compression sleeve that she has been sleeping. Also taking ibuprofen to keep swelling down. 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 Precautions: [place] Subjective: Pt states she is typically sore following PT, pt reports she chose not to run followingprevious visit 2/2 increased soreness. Pain denies present, up to 4/10 post activity Objective: PT Evaluation (11/23/2024) RIGHT KNEE AROM: 0 to 119 degrees in supine PROM: 3 degrees hyperextension, 121 degrees flexion; left knee 153 degrees flexion Strength: knee flexion with single leg squat: right 79 degrees; left 98 degrees Muscle length: prone knee flexion: right 120 degrees, left 141 degrees Single Leg Hop: Right 81 cm, left 124 cm Functional: single leg press at 100lbs: right 7 reps; left 14 reps Treatment Manual Therapy: () Passive ROM, Joint mobilization, Soft Tissue Mobilization, Myofascial Release, Muscle Energy Technique, Neural Mobilization, Myofascial Cupping, Dry Needling, IASTM, and Scar mobilization as needed. Therapeutic Exercise: (28 minutes supervised) Guided pt through ther and flex ex per grid to improve right quad LE Strength, Endurance, Flexibility, ROM, HEP, Neural Mobilization, Power, and Core Stability as needed. 10 minutes unsupervised. Therapeutic Activity: (17 minutes supervised ) Exercises to improve dynamic activities, functional tasks, functional mobility to return to prior activity level as needed. Neuromuscular re-education: (10 minutes supervised ) static and dynamic balancing activity using various surfaces to improve right LE proprioception and eccentric quad control per grid Modalities: Heat, Ice, Electrical Stimulation, Ultrasound, Cervical Mechanical Traction, Lumbar Mechanical Traction, Iontophoresis, and Fluidotherapy as needed. Assessment: Pt has completed 7 PT sessions for right knee pain and weakness post ACL reconstructionsurgery performed on 07-26-24. [place] [employer] this [place] with good [place]. Added lateral shuffling with decrease push off noted right LE. Will continue to progress as pt tolerates. Outcome Measure: Lower Extremity Functional Scale (LEFS): 58/80 Rehab Diagnosis: right LE pain and weakness, right LE instability Short Term Goal: To be met in 2 weeks Goal 1: Pt to be instructed in home exercise program. [employer] Goals: To be met in 10 weeks Goal 1: Pt to report independence and compliance with home program. Goal 2: Pt to achieve 145 degrees right knee flexion to assist with functional tasks such as squatting. Goal 3: Pt to demo no greater than 20% deficit with strength testing of right LE with leg press compared to left. Goal 4: Pt to have no greater than 10cm difference with single leg hopping to ensure safe return tosports and coaching. Goal 5: Pt to score no less than 74/80 on LEFS indicating improved QOL. Goal 6: Pt to achieve 95 degrees of right knee flexion with single leg squat indicating improved strength and stability. Pt will benefit from skilled PT for 2-3x/week from 11/23/2024 to 02/01/2025 to address the above impairments. I hereby deem this POC medically necessary. Please sign below. Date: documented in this encounterFitzgibbon [id number] History of Present illness Narrative* Fide Ortiz, PT - 12/14/2024 9:00 AM EST Images from the original note were not included. Physical Therapy TreatmentVisit Patient Name: Jania Scott Today's Date: 12/14/2024 Encounter Diagnoses Name Primary? Right knee pain, unspecified chronicity Yes Status post repair of anterior cruciate ligament Visit number: 3 Timed Code Treatment Minutes: 57 minutes Total Treatment Time: 67 minutes Time In: 0900 Time Out: 1014 History: Pt presents to PT following right ACL repair on 07/26/24. Pt compliant with use of brace. States she continues with swelling in right LE. Has a compression sleeve that she has been sleeping. Also taking ibuprofen to keep swelling down. 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 Precautions: [place] Subjective: Pt states she has been out of town helping with her father who recently had brain surgery and has had to cancel PT appointments. Pt states she was able to walk/run on TM a few times sincelast being seen in PT. Pain: 4/10 at worst Objective: PT Evaluation (11/23/2024) RIGHT KNEE AROM: 0 to 119 degrees in supine PROM: 3 degrees hyperextension, 121 degrees flexion; left knee 153 degrees flexion Strength: knee flexion with single leg squat: right 79 degrees; left 98 degrees Muscle length: prone knee flexion: right 120 degrees, left 141 degrees Single Leg Hop: Right 81 cm, left 124 cm Functional: single leg press at 100lbs: right 7 reps; left 14 reps Treatment: Education: HEP education with demonstration, Educated on Eval Findings and POC Manual Therapy: () Passive ROM, Joint mobilization, Soft Tissue Mobilization, Myofascial Release, Muscle Energy Technique, Neural Mobilization, Myofascial Cupping, Dry Needling, IASTM, and Scar mobilization as needed. Therapeutic Exercise: (40 minutes) Strength, Endurance, Flexibility, ROM, HEP, Neural Mobilization,Power, and Core Stability as needed. Pt performed and instructed in home program this date; writteninstructions and pictures issued with good pt understanding. 15 minutes unsupervised Therapeutic Activity: (17 minutes) Exercises to improve dynamic activities, functional tasks, functional mobility to return to prior activity level as needed. Neuromuscular re-education: Balance Training, Muscle Facilitation, Dynamic Stability, Core Stabilization, and Blood Flow Restriction Training (BFRT) as needed. Modalities: Heat, Ice, Electrical Stimulation, Ultrasound, Cervical Mechanical Traction, Lumbar Mechanical Traction, Iontophoresis, and Fluidotherapy as needed. Assessment: Pt has completed 3 PT sessions for right knee pain and weakness. Limited progressions due to time since last PT session. Added small bilateral LE hopping this date with min discomfort right superior knee. Will continue to progress as pt tolerates. Outcome Measure: Lower Extremity Functional Scale (LEFS): 58/80 Rehab Diagnosis: right LE pain and weakness, right LE instability Short Term Goal: To be met in 2 weeks Goal 1: Pt to be instructed in home exercise program. Usp Goals: To be met in 10 weeks Goal 1: Pt to report independence and compliance with home program. Goal 2: Pt to achieve 145 degrees right knee flexion to assist with functional tasks such as squatting. Goal 3: Pt to demo no greater than 20% deficit with strength testing of right LE with leg press compared to left. Goal 4: Pt to have no greater than 10cm difference with single leg hopping to ensure safe return tosports and coaching. Goal 5: Pt to score no less than 74/80 on LEFS indicating improved QOL. Goal 6: Pt to achieve 95 degrees of right knee flexion with single leg squat indicating improved strength and stability. Pt will benefit from skilled PT for 2-3x/week from 11/23/2024 to 02/01/2025 to address the above impairments. I hereby deem this POC medically necessary. Please sign below. Date: documented in this encounterFitzgibbon [id number] Telephone encounter Note* Telephone Encounter - Jesenia García - 11/30/2024 2:14 PM EST She called noting [place] of [place] to father is ill; she cx PT for 12/01. I reminded and she confirmed PT on 12/07. [facility] [id number] Miscellaneous Notes* Telephone Encounter - Jesenia García - 11/30/2024 2:14 PM EST She called noting [place] to father is ill; she cx PT for 12/01. I reminded and she confirmed PT on 12/07. documented in this encounterFitzgibbon [id number] History of Present illness Narrative* Fide Ortiz, PT - 11/23/2024 8:30 AM EST Images from the original note were not included. Physical Therapy Re-Evaluation Visit Patient Name: Jania Scott Today's Date: 11/23/2024 Encounter Diagnoses Name Primary? Right knee pain, unspecified chronicity Yes Status post repair of anterior cruciate ligament Visit number: 1 Timed Code Treatment Minutes: 57 minutes Total Treatment Time: 57 minutes Time In: 0830 Time Out: 926 History: Pt presents to PT following right ACL repair on 07/26/24. Pt compliant with use of brace. States she continues with swelling in right LE. Has a compression sleeve that she has been sleeping. Also taking ibuprofen to keep swelling down. 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 Precautions: [place] Subjective: right knee Pain: 4/10 at worst Objective: PT Evaluation (11/23/2024) RIGHT KNEE AROM: 0 to 119 degrees in supine PROM: 3 degrees hyperextension, 121 degrees flexion; left knee 153 degrees flexion Strength: knee flexion with single leg squat: right 79 degrees; left 98 degrees Muscle length: prone knee flexion: right 120 degrees, left 141 degrees Single Leg Hop: Right 81 cm, left 124 cm Functional: single leg press at 100lbs: right 7 reps; left 14 reps Treatment: Education: HEP education with demonstration, Educated on Eval Findings and POC Manual Therapy: Passive ROM, Joint mobilization, Soft Tissue Mobilization, Myofascial Release, Muscle Energy Technique, Neural Mobilization, Myofascial Cupping, Dry Needling, IASTM, and Scar mobilization as needed. Therapeutic Exercise: Strength, Endurance, Flexibility, ROM, HEP, Neural Mobilization, Power, and Core Stability as needed. Pt performed and instructed in home program this date; written instructionsand pictures issued with good pt understanding. Therapeutic Activity: Exercises to improve dynamic activities, functional tasks, functional mobility to return to prior activity level as needed. Neuromuscular re-education: Balance Training, Muscle Facilitation, Dynamic Stability, Core Stabilization, and Blood Flow Restriction Training (BFRT) as needed. Modalities: Heat, Ice, Electrical Stimulation, Ultrasound, Cervical Mechanical Traction, Lumbar Mechanical Traction, Iontophoresis, and Fluidotherapy as needed. Assessment: Pt is 39 y/o female returning to PT for continued strengthening and agility. Pt continues to lack full right knee flexion compared to left. Right LE strength approx 50% of uninvolved LE based on results of single leg press testing. 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 Outcome Measure: Lower Extremity Functional Scale (LEFS): 58/80 Rehab Diagnosis: right LE pain and weakness, right LE instability Short Term Goal: To be met in 2 weeks Goal 1: Pt to be instructed in home exercise program. [employer] Goals: To be met in 10 weeks Goal 1: Pt to report independence and compliance with home program. Goal 2: Pt to achieve 145 degrees right knee flexion to assist with functional tasks such as squatting. Goal 3: Pt to demo no greater than 20% deficit with strength testing of right LE with leg press compared to left. Goal 4: Pt to have no greater than 10cm difference with single leg hopping to ensure safe return tosports and coaching. Goal 5: Pt to score no less than 74/80 on LEFS indicating improved QOL. Goal 6: Pt to achieve 95 degrees of right knee flexion with single leg squat indicating improved strength and stability. Pt will benefit from skilled PT for 2-3x/week from 11/23/2024 to 02/01/2025 to address the above impairments. I hereby deem this POC medically necessary. Please sign below. Date: documented in this encounterNOReynolds County General Memorial [id number] Telephone encounter Note* Telephone Encounter - Jesenia García - 11/18/2024 10:54 AM EST Contacted to schedule PT out; received [facility] 15 visits 11/02-03/02/25. [facility] [id number] Miscellaneous Notes* Telephone Encounter - Jesenia García - 11/18/2024 10:54 AM EST Contacted to schedule PT out; received [facility] Auth 15 visits 11/02-03/02/25. * Telephone Encounter - Jesenia García - 11/16/2024 11:34 AM EST Called but had to lm addressing received clarification of approval but the need of head nurse signature and then we'd receive back; noting nothing had come thru yet. Requested a prompt call back to check status. * Telephone Encounter - Jesenia García - 10/15/2024 1:03 PM EST Contacted and informed, per Molly ([place]), her RFS has been approved visits it is just pendinga signature from a head nurse. Noted once received I will contact jerald. * Telephone Encounter - Jesenia García - 10/12/2024 11:34 AM EST Contacted to note that I made a fu call to [place] re: [place]FS and was told it was received and is pending. I confirmed once provided I will be sent verification via fax; I noted I will contact her jerald. documented in this encounterFitzgibbon [id number] Telephone encounter Note* Telephone Encounter - Jesenia García - 11/16/2024 11:34 AM EST Called but had to lm addressing received clarification of approval but the need of head nurse signature and then we'd receive back; noting nothing had come thru yet. Requested a prompt call back to check status. [facility] [id number] History of Present illness Narrative* CECIL Ngo - 11/03/2024 9:00 AM EST Images from the original note were not included. Subjective Patient ID: Jania Scott is a 39 y.o. female. Chief Complaint: Follow-up of the Right Knee (R[place] [facility] [place] ) Last Surgery: No surgery found Last Surgery Date: No surgery found MARI Reid presents to the office with concerns of continued swelling of the knee status post allograftACL reconstruction by Dr. Rubio proximally 13 weeks ago. She is anxious to get her strength back and states that she is [facility] to [facility] more organized [facility]. She was not expecting this to slow her down as much as it has. She is using her dynamic knee brace however she is performingactivities such as baling hay twisting and rotating lifting heavy objects which would not be recommended. She did have a fall accident When she was doing this. She is still complains quad weakness and general swelling and achiness of the knee. Objective Ortho Exam Patient's incision wounds have healed very nicely she does have mild to moderate joint effusion noted but maintains full extension and flexion of about 110-115 degrees on the affected right knee. There is no erythema or evidence of infection no fever of the joint. Mediolateral collateral ligaments are stable her anterior drawer testing is stable as well as posterior drawer. No significant patellofemoral crepitus noted there is no prepatellar swelling redness or rash Image Results: XR knee 1 or 2 views right Imaging Result: AP, lateral views [place] office today saved to permanent record shows post surgical tibial and femoral bone tunnels without fracture. Effusion/ST swelling present as expected. Assessment/Plan Encounter Diagnoses: Status post reconstruction of anterior cruciate ligament No orders of the defined types were placed in this encounter. Follow up if symptoms worsen or fail to improve. Would continue organized physical therapy for quad Strengthening and start using some compression particularly nighttime for swelling of the knee joint with more routine use of anti-inflammatories iftolerated from a GI and renal standpoint. Continue your dynamic ACL brace with any activity outsidethe home. May discuss with therapist on progressing to jogging. As you get closer to the 12 month you should have reduction of joint swelling and if necessary could consider cortisone injection to help with this and may start to do activities with out the dynamic protection of her brace. documented in this [facility]01-08-2025 Instructions* Patient Instructions* CECIL Ngo - 11/03/2024 9:00 AM EST Would continue organized physical therapy for quad Strengthening and start using some compression particularly nighttime for swelling of the knee joint with more routine use of anti-inflammatories iftolerated from a GI and renal standpoint. Continue your dynamic ACL brace with any activity outsidethe home. May discuss with therapist on progressing to jogging. As you get closer to the 12 month you should have reduction of joint swelling and if necessary could consider cortisone injection to help with this and may start to do activities with out the dynamic protection of her brace. documented in this [facility]12-20-2024 Telephone encounter Note* Telephone Encounter - Jesenia García - 10/15/2024 1:03 PM EST Contacted and informed, per Molly ([place]), her RFS has been approved visits it is just pendinga signature from a head nurse. Noted once received I will contact [facility]. [facility]bon [id number] Telephone encounter Note* Telephone Encounter - Jesenia García - 10/12/2024 11:34 AM EST Contacted to note that I made a fu call to [place] re: RFS and was told it was received and is pending. I confirmed once provided I will be sent verification via fax; I noted I will contact her jerald. [facility]bon [id number] History of Present illness Narrative* Fide Ortiz, PT - 10/08/2024 1:30 PM EST Images from the original note were not included. Physical Therapy Treatment Visit Patient Name: Jania Scott Today's Date: 10/08/2024 Encounter Diagnoses Name Primary? Right knee pain, unspecified chronicity Yes Status post repair of anterior cruciate ligament Visit number: 15 Timed Code Treatment Minutes: 58 minutes Total Treatment Time: 68 minutes Time In: 1330 Time Out: 1446 History: Pt underwent surgery for right ACL repair (allograft) and meniscectomy on 07/26/24. Pt was 50% WB initially. Pt is now WBAT with no ROM restrictions. Ambulates with bilateral axillary crutches. Has taken some steps at home with one crutch. Has not been given any exercises or stretches for home. Icing at home. Pt states yesterday she did start having severe pain in right lateral knee when moving from bent to straight. Pain required her to take pain meds, normally has not been. Pain stillpresent with ROM. Precautions: right ACL reconstruction 07/26/24 Subjective: Pt states still exercising on her own. Trying to bend right knee but pain is limiting. Pain today rates about 3/10. Pain: 3/10 Objective: PT Evaluation (08/12/2024) KNEE AROM: 5 to 61 degrees PROM: 3 to 66 degrees Joint play: not tested MMT: grossly 3-/5 due to pain; 8 additional degrees of extension lag noted with SLR. Observation: Incisions healing well; no drainage or excessive redness noted Special Test: N/A Treatment: Education: HEP education with demonstration, Educated on Eval Findings and POC Manual Therapy: (14 minutes) Manual contract/relax in prone to increase right knee flexion ROM. Mobs to right knee to increase flexion. Will continue. Therapeutic Exercise: (44 minutes) Strength, Endurance, Flexibility, ROM, HEP, Neural Mobilization,Power, and Core Stability as needed. Pt performed exercises per grid. Performed leg press single leg to avoid left LE compensation. Therapeutic Activity: () Exercises to improve dynamic activities, functional tasks, functional mobility to return to prior activity level as needed. Monitored activity to improve LE control, preventing hip IR to improve functional tolerance mechanical loading. Gait Training: () as needed. Pt instructed in proper gait with one axillary crutch; pt demo's good return. Advised pt to progress to one crutch as pain allows. Neuromuscular re-education: () Balance Training, Muscle Facilitation, Dynamic Stability, Core Stabilization, and Blood Flow Restriction Training (BFRT) as needed. Modalities: Heat, Ice, Electrical Stimulation, Ultrasound, Cervical Mechanical Traction, Lumbar Mechanical Traction, Iontophoresis, and Fluidotherapy as needed. CP to right knee following treatment this date. Assessment: Pt has completed 15 sessions following right ACL repair. Pt able to achieve 127 degreesof right knee flexion this date with self overpressure. Pt continues with significant pain in rightknee at end range of flexion. Will continue once approval is received. Outcome Measure: Lower Extremity Functional Scale (LEFS): 1780 Rehab Diagnosis: right knee pain and weakness; decrease ROM right LE; difficulty walking Short Term Goal: To be met in 2 weeks Goal 1: Pt to be instructed in home exercise program. - met Goal 2: Pt to ambulate community distances with use of only one axillary crutch. - met [employer] Goals: To be met in 10 weeks Goal 1: Pt to report independence and compliance with home program. - met Goal 2: Pt to achieve 130 degrees right knee flexion to assist with functional tasks such as squatting. - not met Goal 3: Pt to achieve full right knee extension to assist with proper gait. - met Goal 4: Pt to achieve 5/5 strength right knee flexion and extension to assist with functional mobility and ADL's. - progressing Goal 5: Pt to score no less than 60/80 on LEFS indicating improved QOL. - met New Goal: Pt to achieve 95 degrees of right knee flexion with single leg squat indicating improved strength and stability. 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 [place]: Pt to demo no greater than 20% deficit with strength testing of right LE with leg press compared to left. Pt will benefit from skilled PT for 2-3x/week from 10/05/2024 to 12/14/2024 to address the above impairments. I hereby deem this POC medically necessary. Please sign below. Date: documented in this [facility]12-12-2024 Telephone encounter Note* Telephone Encounter - Xiomara Crenshawh - 10/07/2024 1:23 PM EST Jania left me a message asking if we could send a request for more PT to be approved though the [place]. She said she is almost completed with PT that the [place] already approved but was looking to get more. [facility]bon [id number] Miscellaneous Notes* Telephone Encounter - Xiomara Waters - 10/07/2024 1:23 PM EST Jania left me a message asking if we could send a request for more PT to be approved though the [place]. She said she is almost completed with PT that the [place] already approved but was looking to get more. documented in this [facility]11-25-2024 History of Present illness Narrative* Fide Ortiz PT - 09/20/2024 9:30 AM EST Physical Therapy Treatment Visit Patient Name: Jania Scott Today's Date: 09/20/2024 Encounter Diagnoses Name Primary? Right knee pain, unspecified chronicity Yes Status post repair of anterior cruciate ligament Visit number: 11 Timed Code Treatment Minutes: 55 minutes Total Treatment Time: 65 minutes Time In: 0930 Time Out: 1039 History: Pt underwent surgery for right ACL repair (allograft) and meniscectomy on 07/26/24. Pt was 50% WB initially. Pt is now WBAT with no ROM restrictions. Ambulates with bilateral axillary crutches. Has taken some steps at home with one crutch. Has not been given any exercises or stretches for home. Icing at home. Pt states yesterday she did start having severe pain in right lateral knee when moving from bent to straight. Pain required her to take pain meds, normally has not been. Pain stillpresent with ROM. Precautions: right ACL reconstruction 07/26/24 Subjective: Went to Dr office this morning and picked up brace. Not having a lot of pain this morning. Hasn't worked out yet today. Pain: 1-12/06 Objective: PT Evaluation (08/12/2024) KNEE AROM: 5 to 61 degrees PROM: 3 to 66 degrees Joint play: not tested MMT: grossly 3-/5 due to pain; 8 additional degrees of extension lag noted with SLR. Observation: Incisions healing well; no drainage or excessive redness noted Special Test: N/A Treatment: Education: HEP education with demonstration, Educated on Eval Findings and POC Manual Therapy: () pat mobs, STM, PROM for joint mobility. Passive ROM, Joint mobilization, Soft Tissue Mobilization, Myofascial Release, Muscle Energy Technique, Neural Mobilization, Myofascial Cupping, Dry Needling, IASTM, and Scar mobilization as needed. Therapeutic Exercise: (44 minutes) Strength, Endurance, Flexibility, ROM, HEP, Neural Mobilization,Power, and Core Stability as needed. Pt performed exercises per grid. Performed leg press single leg to avoid left LE compensation. BIKE 5' unsupervised Therapeutic Activity: (unsupervised) Exercises to improve dynamic activities, functional tasks, functional mobility to return to prior activity level as needed. Gait Training: () as needed. Pt instructed in proper gait with one axillary crutch; pt demo's good return. Advised pt to progress to one crutch as pain allows. Neuromuscular re-education: (11 minutes) Balance Training, Muscle Facilitation, Dynamic Stability, Core Stabilization, and Blood Flow Restriction Training (BFRT) as needed. Modalities: Heat, Ice, Electrical Stimulation, Ultrasound, Cervical Mechanical Traction, Lumbar Mechanical Traction, Iontophoresis, and Fluidotherapy as needed. CP to right knee following treatment in supine with elevation x10 minutes. Assessment: Pt has completed 11 sessions following right ACL repair. Pt able to perform 5 reps right single leg press with 85# resistance, 20 reps left LE. Added ladder drills this date with good lexie; limited hopping due to mild discomfort. Pt advised to avoid leg extension machine (open chain quad strengthening) at gym; pt voiced good understanding. Will continue to progress as pt tolerates. Outcome Measure: Lower Extremity Functional Scale (LEFS): Rehab Diagnosis: right knee pain and weakness; decrease ROM right LE; difficulty walking Short Term Goal: To be met in 2 weeks Goal 1: Pt to be instructed in home exercise program. Goal 2: Pt to ambulate community distances with use of only one axillary crutch. Usp Goals: To be met in 10 weeks Goal 1: Pt to report independence and compliance with home program. Goal 2: Pt to achieve 130 degrees right knee flexion to assist with functional tasks such as squatting. Goal 3: Pt to achieve full right knee extension to assist with proper gait. Goal 4: Pt to achieve 5/5 strength right knee flexion and extension to assist with functional mobility and ADL's. Goal 5: Pt to score no less than 60/80 on LEFS indicating improved QOL. Pt will benefit from skilled PT for 2-3x/week from 08/12/2024 to 10/21/2024 to address the above impairments. I hereby deem this POC medically necessary. Please sign below. Date: documented in this encounterFitzgibbon [id number] History of Present illness Narrative* Fide Ortiz PT - 09/09/2024 9:30 AM EST Physical Therapy Treatment Visit Patient Name: Jania Scott Today's Date: 09/09/2024 Encounter Diagnoses Name Primary? Right knee pain, unspecified chronicity Yes Status post repair of anterior cruciate ligament Visit number: 8 Timed Code Treatment Minutes: 58 minutes Total Treatment Time: 68 minutes Time In: 30 Time Out: 1043 History: Pt underwent surgery for right ACL repair (allograft) and meniscectomy on 07/26/24. Pt was 50% WB initially. Pt is now WBAT with no ROM restrictions. Ambulates with bilateral axillary crutches. Has taken some steps at home with one crutch. Has not been given any exercises or stretches for home. Icing at home. Pt states yesterday she did start having severe pain in right lateral knee when moving from bent to straight. Pain required her to take pain meds, normally has not been. Pain stillpresent with ROM. Precautions: right ACL reconstruction 07/26/24 Subjective: Pt states still waiting on new brace. Went on field trip with daughter to [place] and was on her feet a lot yesterday. Noticed going up steps wasn't too bad but still having a hardtime going down. Pain: 210 Objective: PT Evaluation (08/12/2024) KNEE AROM: 5 to 61 degrees PROM: 3 to 66 degrees Joint play: not tested MMT: grossly 3-/5 due to pain; 8 additional degrees of extension lag noted with SLR. Observation: Incisions healing well; no drainage or excessive redness noted Special Test: N/A Treatment: Education: HEP education with demonstration, Educated on Eval Findings and POC Manual Therapy: (5 minutes) pat mobs, STM, PROM for joint mobility. Passive ROM, Joint mobilization, Soft Tissue Mobilization, Myofascial Release, Muscle Energy Technique, Neural Mobilization, Myofascial Cupping, Dry Needling, IASTM, and Scar mobilization as needed. Therapeutic Exercise: (31 minutes) Strength, Endurance, Flexibility, ROM, HEP, Neural Mobilization,Power, and Core Stability as needed. Pt performed exercises per grid. Performed leg press single leg to avoid left LE compensation. Therapeutic Activity: () Exercises to improve dynamic activities, functional tasks, functional mobility to return to prior activity level as needed. Gait Training: () as needed. Pt instructed in proper gait with one axillary crutch; pt demo's good return. Advised pt to progress to one crutch as pain allows. Neuromuscular re-education: (27 minutes) Balance Training, Muscle Facilitation, Dynamic Stability, Core Stabilization, and Blood Flow Restriction Training (BFRT) as needed. Progresses to squats on BOSU to increase functional strength and stability of right LE. Modalities: Heat, Ice, Electrical Stimulation, Ultrasound, Cervical Mechanical Traction, Lumbar Mechanical Traction, Iontophoresis, and Fluidotherapy as needed. CP to right knee following treatment in supine with elevation x10 minutes. Assessment: Pt has completed 8 sessions following right ACL repair. Pt able to achieve 118 degrees of right knee flexion in prone with quad stretch. Able to ascend 12 inch step with right LE with [place] moderate compensation. Outcome Measure: Lower Extremity Functional Scale (LEFS): 17/80 Rehab Diagnosis: right knee pain and weakness; decrease ROM right LE; difficulty walking Short Term Goal: To be met in 2 weeks Goal 1: Pt to be instructed in home exercise program. Goal 2: Pt to ambulate community distances with use of only one axillary crutch. Usp Goals: To be met in 10 weeks Goal 1: Pt to report independence and compliance with home program. Goal 2: Pt to achieve 130 degrees right knee flexion to assist with functional tasks such as squatting. Goal 3: Pt to achieve full right knee extension to assist with proper gait. Goal 4: Pt to achieve 5/5 strength right knee flexion and extension to assist with functional mobility and ADL's. Goal 5: Pt to score no less than 60/80 on LEFS indicating improved QOL. Pt will benefit from skilled PT for 2-3x/week from 08/12/2024 to 10/21/2024 to address the above impairments. I hereby deem this POC medically necessary. Please sign below. Date: documented in this encounterFitzgibbon [id number] History of Present illness Narrative* Rusty Flores, DANIEL - 09/06/2024 9:30 AM EST Physical Therapy Treatment Visit Patient Name: Jania Scott Today's Date: 09/06/2024 Encounter Diagnoses Name Primary? Right knee pain, unspecified chronicity Yes Status post repair of anterior cruciate ligament Visit number: 7 Timed Code Treatment Minutes: 50 minutes Total Treatment Time: 70 minutes Time In: 0930 Time Out: 1040 History: Pt underwent surgery for right ACL repair (allograft) and meniscectomy on 07/26/24. Pt was 50% WB initially. Pt is now WBAT with no ROM restrictions. Ambulates with bilateral axillary crutches. Has taken some steps at home with one crutch. Has not been given any exercises or stretches for home. Icing at home. Pt states yesterday she did start having severe pain in right lateral knee when moving from bent to straight. Pain required her to take pain meds, normally has not been. Pain stillpresent with ROM. Precautions: right ACL reconstruction 07/26/24 Subjective: Pt had follow- up with surgeon, brace was not in yet is allowed to go without brace at home but instructed to continue with brace out and about . Pt noted some muscle soreness following previous visit. Pain: 12/06 Objective: PT Evaluation (08/12/2024) KNEE AROM: 5 to 61 degrees PROM: 3 to 66 degrees Joint play: not tested MMT: grossly 3-/5 due to pain; 8 additional degrees of extension lag noted with SLR. Observation: Incisions healing well; no drainage or excessive redness noted Special Test: N/A Treatment: Education: HEP education with demonstration, Educated on Eval Findings and POC Manual Therapy: (5 minutes) pat mobs, STM, PROM for joint mobility. Passive ROM, Joint mobilization, Soft Tissue Mobilization, Myofascial Release, Muscle Energy Technique, Neural Mobilization, Myofascial Cupping, Dry Needling, IASTM, and Scar mobilization as needed. Therapeutic Exercise: (15 minutes) Strength, Endurance, Flexibility, ROM, HEP, Neural Mobilization,Power, and Core Stability as needed. Pt performed exercises per grid. Added bike with gradual progression of seat to increase ROM. Performed standing ex this date without use of brace. Additional unsupervised. Therapeutic Activity: (15 minutes) Exercises to improve dynamic activities, functional tasks, functional mobility to return to prior activity level as needed. Gait Training: () as needed. Pt instructed in proper gait with one axillary crutch; pt demo's good return. Advised pt to progress to one crutch as pain allows. Neuromuscular re-education: (15 minutes) Balance Training, Muscle Facilitation, Dynamic Stability, Core Stabilization, and Blood Flow Restriction Training (BFRT) as needed. Modalities: Heat, Ice, Electrical Stimulation, Ultrasound, Cervical Mechanical Traction, Lumbar Mechanical Traction, Iontophoresis, and Fluidotherapy as needed. CP to right knee following treatment in supine with elevation x10 minutes. Assessment: Pt has completed 7 sessions following right ACL repair. Pt with 120 degrees of right knee flexion with self stretch this date. Little to no extension lag present with SLR. AROM improving.Able to perform all standing exercises without right knee buckling, progressed throughout within protocol. Will continue. Outcome Measure: Lower Extremity Functional Scale (LEFS): 17/ Rehab Diagnosis: right knee pain and weakness; decrease ROM right LE; difficulty walking Short Term Goal: To be met in 2 weeks Goal 1: Pt to be instructed in home exercise program. Goal 2: Pt to ambulate community distances with use of only one axillary crutch. Usp Goals: To be met in 10 weeks Goal 1: Pt to report independence and compliance with home program. Goal 2: Pt to achieve 130 degrees right knee flexion to assist with functional tasks such as squatting. Goal 3: Pt to achieve full right knee extension to assist with proper gait. Goal 4: Pt to achieve 5/5 strength right knee flexion and extension to assist with functional mobility and ADL's. Goal 5: Pt to score no less than 60/80 on LEFS indicating improved QOL. Pt will benefit from skilled PT for 2-3x/week from 08/12/2024 to 10/21/2024 to address the above impairments. I hereby deem this POC medically necessary. Please sign below. Date: Cosigned by Fide Ortiz PT at 09/10/2024 1:08 PM EST documented in this encounterFitzgibbon [id number] History of Present illness Narrative* Tiff Kent - 09/02/2024 9:30 AM EST Images from the original note were not included. Jania Scott is a 39 y.o. female presents with chief complaint of PO < 90 days status post right knee scope with allograft anterior cruciate ligament reconstruction. HPI: Jania is here for her second postoperative visit. Pain is controlled. Physical therapy is progressing. She is up to 110 degrees. She has been wearing the brace. No new falls, traumas or injuries reported. SUBJECTIVE: MEDICATIONS: Current Outpatient Medications Medication Instructions acetaminophen (TYLENOL) 325 mg aspirin 325 MG tablet TAKE 1 TABLET BY MOUTH EVERY DAY FOR 21 DAYS*START THE DAY AFTER KNEE SURGERY* famotidine (PEPCID) 40 mg omeprazole (PRILOSEC) 10 mg, Daily before breakfast pantoprazole (ProtoNix) 40 MG EC tablet TAKE ONE TABLET BY MOUTH EVERY MORNING, ON AN EMPTY STOMACHFOR GASTROESOPHAGEAL REFLUX DISEASE ALLERGIES: No Known Allergies SURGICAL HISTORY: Past Surgical History: Procedure Laterality Date ANTERIOR CRUCIATE LIGAMENT REPAIR Right 07/26/2024 MTP BREAST SURGERY Bilateral 2021 Enhancement DILATION AND CURETTAGE OF UTERUS 2008 WISDOM TOOTH EXTRACTION 2005 FAMILY HISTORY: Family History Problem Relation Name Age of Onset Cancer Mother Diabetes Mother Heart disease Mother Diabetes Father Hypertension Father Diabetes Mother's Sister Cancer Father's Sister Diabetes Father's Sister Cancer Maternal Grandmother Diabetes Maternal Grandmother SOCIAL HISTORY: Social History Tobacco Use Smoking status: Never Smokeless tobacco: Never Vaping Use Vaping status: Never Used Substance Use Topics Alcohol use: Yes Comment: once a month Drug use: Never Depression: Not on file REVIEW OF SYMPTOMS: The review of systems, history and current medications list are all reviewed today. OBJECTIVE: Visit Vitals Ht 5' 7 Wt 152 lb LMP (LMP Unknown) BMI 23.81 kg/m OB Status Unknown Smoking Status Never BSA 1.8 m Physical Exam On physical exam, the quad has moderate atrophy. The incisions are clean, dry and intact. Knee swelling itself is very mild. It is aseptic in appearance. She has full extension. She flexes the knee to approximately 110 degrees. Quad tone and strength shows moderate weakness. Her ACL graft is intact without instability or pain and she is neurovascularly intact distally. She is able to bear full weight. X-rays and imaging permanently saved to the patient's record were reviewed. Physical therapy reportis reviewed. ASSESSMENT AND PLAN: Assessment/Plan Status post right knee scope with allograft ACL reconstruction. The nature of the findings were discussed at length. She will continue with the brace. We are in the process of authorizing her ACL brace, L1852 component. Once we have authorization the [facility] benefits,we will place this for her. Follow up will be in two months for recheck, sooner if worse. She voices verbal understanding. She is discharged in stable condition. Numerous questions were answered. Cosigned by Wade Rubio DO at 09/06/2024 5:23 PM EST documented in this encounterFitzgibbon [id number] History of Present illness Narrative* Fide Ortiz, PT - 08/30/2024 9:30 AM EST Physical Therapy Treatment Visit Patient Name: Jania Scott Today's Date: 08/30/2024 Encounter Diagnoses Name Primary? Right knee pain, unspecified chronicity Yes Status post repair of anterior cruciate ligament Visit number: 5 Timed Code Treatment Minutes: 45 minutes Total Treatment Time: 60 minutes Time In: 0925 Time Out: 1028 History: Pt underwent surgery for right ACL repair (allograft) and meniscectomy on 07/26/24. Pt was 50% WB initially. Pt is now WBAT with no ROM restrictions. Ambulates with bilateral axillary crutches. Has taken some steps at home with one crutch. Has not been given any exercises or stretches for home. Icing at home. Pt states yesterday she did start having severe pain in right lateral knee when moving from bent to straight. Pain required her to take pain meds, normally has not been. Pain stillpresent with ROM. Precautions: right ACL reconstruction 07/26/24 Subjective: Pt continues to have daily pain. Somewhat frustrated with continued pain right knee. Ptstates she went to scientologist yesterday without brace, knee doesn't feel as stable as the left. Pain: 2/10 Objective: PT Evaluation (08/12/2024) KNEE AROM: 5 to 61 degrees PROM: 3 to 66 degrees Joint play: not tested MMT: grossly 3-/5 due to pain; 8 additional degrees of extension lag noted with SLR. Observation: Incisions healing well; no drainage or excessive redness noted Special Test: N/A Treatment: Education: HEP education with demonstration, Educated on Eval Findings and POC Manual Therapy: (minutes) pat mobs, STM, PROM for joint mobility. Passive ROM, Joint mobilization, Soft Tissue Mobilization, Myofascial Release, Muscle Energy Technique, Neural Mobilization, Myofascial Cupping, Dry Needling, IASTM, and Scar mobilization as needed. Therapeutic Exercise: (30 minutes) Strength, Endurance, Flexibility, ROM, HEP, Neural Mobilization,Power, and Core Stability as needed. Pt performed exercises per grid. Added bike with gradual progression of seat to increase ROM. Performed standing ex this date without use of brace. Therapeutic Activity: Exercises to improve dynamic activities, functional tasks, functional mobility to return to prior activity level as needed. Gait Training: () as needed. Pt instructed in proper gait with one axillary crutch; pt demo's good return. Advised pt to progress to one crutch as pain allows. Neuromuscular re-education: (15 minutes) Balance Training, Muscle Facilitation, Dynamic Stability, Core Stabilization, and Blood Flow Restriction Training (BFRT) as needed. Modalities: Heat, Ice, Electrical Stimulation, Ultrasound, Cervical Mechanical Traction, Lumbar Mechanical Traction, Iontophoresis, and Fluidotherapy as needed. IFC/CP to right knee following treatment in supine with elevation x15 minutes. Assessment: Pt has completed 5 sessions following right ACL repair. Pt with 110 degrees of right knee flexion with self stretch this date. Little to no extension abeba present with SLR. Able to perform all standing exercises without right knee buckling. Will continue. Outcome Measure: Lower Extremity Functional Scale (LEFS): Rehab Diagnosis: right knee pain and weakness; decrease ROM right LE; difficulty walking Short Term Goal: To be met in 2 weeks Goal 1: Pt to be instructed in home exercise program. Goal 2: Pt to ambulate community distances with use of only one axillary crutch. [employer] Goals: To be met in 10 weeks Goal 1: Pt to report independence and compliance with home program. Goal 2: Pt to achieve 130 degrees right knee flexion to assist with functional tasks such as squatting. Goal 3: Pt to achieve full right knee extension to assist with proper gait. Goal 4: Pt to achieve 5/5 strength right knee flexion and extension to assist with functional mobility and ADL's. Goal 5: Pt to score no less than 60/80 on LEFS indicating improved QOL. Pt will benefit from skilled PT for 2-3x/week from 08/12/2024 to 10/21/2024 to address the above impairments. I hereby deem this POC medically necessary. Please sign below. Date: documented in this [facility]10-11-2024 Telephone encounter Note* Telephone Encounter - Jesenia García - 08/06/2024 12:22 PM EDT She has her PT Eval 08/12. Please note you have received; thank you [facility] [id number] Miscellaneous Notes* Telephone Encounter - Jesenia García - 08/06/2024 12:22 PM EDT She has her PT Eval 08/12. Please note you have received; thank you documented in this [facility]10-11-2024 Telephone encounter Note* Telephone Encounter - Jesenia García - 08/06/2024 9:06 AM EDT S/P ACL [facility] [id number] Miscellaneous Notes* Telephone Encounter - Jesenia García - 08/06/2024 9:06 AM EDT S/P ACL documented in this [facility]10-10-2024 History of Present illness Narrative* Wade Rubio DO - 08/05/2024 9:30 AM EDT Chief complaint: S/P right knee scope/allograft ACL reconstruction-first postoperative visit History: S/P knee scope with ACL recosntruction, doing well. No complaints with anesthesia or anni-operativeancillary care. Pain is controlled. No chest or SOB. Taking anni-op Aspirin for 21 days per protocol. Has been compliant with crutches and 50%PWB. Physical Exam: The knee and leg have mild swelling. No rash or infection. Portals are clean, dry and intact. Calf is supple and non-tender. Able to bear weight with mild antalgic gait. Xrays: AP, lateral views [place] office today saved to permanent record shows post surgical tibial and femoral bone tunnels without fracture. Effusion/ST swelling present as expected. Arthroscopic prints reviewed. Assessment: S/P knee scope-first post operative visit ACL reconstruction -Allograft Treatment Plan: The nature of the findings were discussed at length. PT ACL protocol NOM's Willie sent. ROM brace tofull arc when up. WABT with crutch weaning. Finish ASA DVT prevention medication until day #21 post-operative. PT was offered and discussed. F/U will be in 1 month. Tylenol/Advil for pain. All questions answered. documented in this encounterFitzgibbon [id number] NoteProgress Note-Physician Patient: JANIA SCOTT Age: 39 years Sex: Female : 1985 Associated Diagnoses: None Author: MD Ibis, Rosanna Daley Postoperative Information Postoperative disposition: Postoperative disposition: To PACU. Optimetrix number: Optimetrix number [id number]. Anesthetic utilized: General. Health Status Allergies: Allergic Reactions (Selected) No Known Medication Allergies Physical Examination VS/Measurements Pain Assessment: Controlled. General: Awake, Alert, Appropriate. Respiratory: Adequate air exchange. Cardiovascular: Stable, Normal peripheral perfusion. Neurological: Normal sensory function, Normal motor function. Assessment Anesthetic outcome No anesthetic complications noted. Adequate pain relief. able to void without difficulty, able to ambulate with assist, tolerating PO intake, no N/V. Review / Management Condition: Stable. Plan Transfer/Discharge: Transfer/Discharge Discharge when meets criteria ( To home ).[facility] HospitalComment on above:Result Comment: Electronically Signed By: MD Baumann Ahmad F\.br\Date and Time Signed: 07/26/24 20:12 EDT 07-26-2024 NoteProgress Note-Physician Patient: JANIA SCOTT Age: 39 years Sex: Female : 1985 Associated Diagnoses: None Author: MD Baumann Ahmad F Preoperative Information Time patient last ate or drank:=== (npo 8 hours) Anesthesia history: Patient history: No prior anesthesia problems. Re-evaluation prior to induction: Completed, Initial evaluation reviewed. Review of Systems Respiratory: No shortness of breath. Cardiovascular: No chest pain. Hematology/Lymphatics: No bruising tendency, No bleeding tendency. Health Status Allergies: Allergic Reactions (All) No Known Medication Allergies Current medications: (Selected) Prescriptions Prescribed Percocet 5 mg-325 mg oral tablet: See Instructions, 40 tab(s), Refill(s) 0, Take one to two every 4hours as needed fore knee surgical pain., [id number], 168.6, cm, 07/12/24 12:10:00 EDT, Height/Length Dosing, 69.7, kg, 07/12/24 12:10:00 EDT, Weight Dosing aspirin 325 mg Tab: 325 mg = 1 tab(s), Oral, Daily, Start the day after knee surgery, X 21 day(s), # 21 tab(s), Refills(s) 0, Pharmacy: [id number], 168.6, cm, 07/12/24 12:10:00 EDT, Height/Length Dosing, 69.7, kg, 07/12/24 12:10:00 EDT, Weight Dosing Documented Medications Documented Pantoprazole [address] Tab: 40 mg = 1 tab(s), Oral, Daily, Refills(s) 0, Control of stomach acid omeprazole 40 mg Cap-DR: 40 mg = 1 cap(s), Oral, Daily, Refills(s) 0, Control of stomach acid Problem list: All Problems GERD (gastroesophageal reflux disease) / SNOMED CT 718058060 / Confirmed Nausea and vomiting / SNOMED CT [id number] / Confirmed Histories Past Medical History: No active or resolved past medical history items have been selected or recorded. Family History: Primary malignant neoplasm of colon Grandparent Diabetes mellitus type 2 Mother Primary malignant neoplasm of female breast Mother Procedure history: Arthroplasty of knee ([id number]) on 07/26/2024 at 39 Years. Esophagogastroduodenoscopy ([id number]) on 08/23/2022 at 37 Years. Breast augmentation ([id number]). Comments: 07/29/2022 9:12 EDT - Saira Ferrera 2021 Extraction of wisdom tooth ([id number]). Social History Social & Psychosocial Habits Alcohol 07/12/2024 Use: Current Frequency: 1-2 times per month Substance Abuse 07/12/2024 Risk Assessment: Denies Substance Abuse Tobacco 07/12/2024 Tobacco Use: Never (less than 100 in l Smokeless tobacco use: Never . Physical Examination Please see preop flow sheet Airway: Mallampati classification: II (soft palate, fauces, uvula visible). Respiratory: Lungs are clear to auscultation. Cardiovascular: Normal rate, Regular rhythm. Neurologic: Alert. Review / Management Results review Interpretation of Outside Results Chest x-ray results Radiology results ECG interpretation Condition Plan [place] [employer]hes[employer] (ASA) physical status classification: Class II. Anesthetic Preoperative Plan Anesthesia: General. . Anesthetic plan, risks, benefits, and alternatives discussed with the patient and/or family. Risks discussed: nausea, vomiting, headache, sore throat, dental injury, serious complications. Patient verbalized understanding. Communication: face to face with patient 5 minutes.[facility] HospitalComment on above: Result Comment: Electronically Signed By: MD Ibis, Rosanna Daley\.mavis\Date and Time Signed: 07/26/24 20:10 [id number] Hospital Discharge instructions Patient Education 07/26/2024 13:30:45 Post Op Patient Instructions - FT (CUSTOM) 07/22/2024 12:46:37 Rubio - Anterior Cruciate Ligament Graft (Custom) (CUSTOM) [place], [place] [facility] DISCHARGE INSTRUCTIONS: ANTERIOR CRUCIATE LIGAMENT GRAFT MEDICATIONS You will be given a prescription for pain medication. This should be taken as needed and try to take this with food. Pain medication can cause nausea, constipation, diarrhea, and restlessness and should only be used as needed. When you are able to tolerate Tylenol this should be used instead. ASPIRIN 325mg EC oral daily for 3 weeks for blood clot prevention. WOUND CARE Please keep dressing on. Keeping it clean and dry. Do not soak in the tub or otherwise submerge theincision until brian are removed. Any increase in pain, temperature or redness should be promptlyreported to the office. Reinforce dressing as needed. ACTIVITY You will be given a protocol of the Cruciate Ligament Reconstruction Program and therapy and this should be followed. Physical Therapy will advise you when it is safe to begin walking with crutches, generally this is performed after you obtain good leg strength, unless a meniscus repair has been performed as well. DIET You may begin to progress your regular home diet as tolerated. You should continue to increase fluids for the first two to three days after surgery. ANESTHESIA PRECAUTIONS You should not operate a vehicle (automobile, bicycle, motorcycle), machinery or power tools, make any important decisions or drink alcoholic beverages for 24 hours. You should not consume alcoholic beverages within 12 hours of using you pain medication. DRIVING Driving is legal. But if you are involved in an accident, you must be able to prove that you maintained full control of your vehicle. For this reason, it is advised that you do not drive until your strength returns. Similarly, all sports activities are discouraged, at least until your first post-operative visit at which time we will discuss how and when to resume sports. EXPECTATIONS OF SURGERY Your pain will continue to decrease day by day. You may experience swelling and this should be treated with elevation of the leg as well. Any increased pain should be promptly reported to my office. FOLLOW-UP APPOINTMENT You will be given a care for a follow-up appointment in the office, usually within 10 to 14 days. You will continue physical therapy until the time of your office visit. Any further questions may be discussed with Physical Therapy, or please contact the office for further clarification or any concerns. Wade Rubio, DO [facility] [address] [place] [address] Reviewed: 4-08 Follow Up Care 07/06/2024 15:17:45 With:Wade Rubio Address: [address] [place] [phone] Business (1) When: Unknown Comments:Keep scheduled appointment [facility] [place] 09-30-2024 Evaluation + Plan noteExtracted from:Title: ANES Post Op - GeneralAuthor:MD Ibis, Rosanna FDate:07/26/24 Plan Transfer/Discharge: Transfer/Discharge Discharge when meets criteria ( To home ). Extracted from:Title:ANES Pre Op - Adult GeneralAuthor:MD Ibis, Rosanna F Date:07/26/24 Plan [place] [employer] (ASA) physical status classification: Class II. Anesthetic Preoperative Plan Anesthesia: General. . Anesthetic plan, risks, benefits, and alternatives discussed with the patient and/or family. Risks discussed: nausea, vomiting, headache, sore throat, dental injury, serious complications. Patient verbalized understanding. Communication: face to face with patient 5 minutes.[facility] 09-30-2024 NotePatient Education - Text [place], [place] [facility] DISCHARGE INSTRUCTIONS: ANTERIOR CRUCIATE LIGAMENT GRAFT MEDICATIONS You will be given a prescription for pain medication. This should be taken as needed and try to take this with food. Pain medication can cause nausea, constipation, diarrhea, and restlessness and should only be used as needed. When you are able to tolerate Tylenol this should be used instead. ASPIRIN 325mg EC oral daily for 3 weeks for blood clot prevention. WOUND CARE Please keep dressing on. Keeping it clean and dry. Do not soak in the tub or otherwise submerge theincision until brian are removed. Any increase in pain, temperature or redness should be promptlyreported to the office. Reinforce dressing as needed. ACTIVITY You will be given a protocol of the Cruciate Ligament Reconstruction Program and therapy and this should be followed. Physical Therapy will advise you when it is safe to begin walking with crutches, generally this is performed after you obtain good leg strength, unless a meniscus repair has been performed as well. DIET You may begin to progress your regular home diet as tolerated. You should continue to increase fluids for the first two to three days after surgery. ANESTHESIA PRECAUTIONS You should not operate a vehicle (automobile, bicycle, motorcycle), machinery or power tools, make any important decisions or drink alcoholic beverages for 24 hours. You should not consume alcoholic beverages within 12 hours of using you pain medication. DRIVING Driving is legal. But if you are involved in an accident, you must be able to prove that you maintained full control of your vehicle. For this reason, it is advised that you do not drive until your strength returns. Similarly, all sports activities are discouraged, at least until your first post-operative visit at which time we will discuss how and when to resume sports. EXPECTATIONS OF SURGERY Your pain will continue to decrease day by day. You may experience swelling and this should be treated with elevation of the leg as well. Any increased pain should be promptly reported to my office. FOLLOW-UP APPOINTMENT You will be given a care for a follow-up appointment in the office, usually within 10 to 14 days. You will continue physical therapy until the time of your office visit. Any further questions may be discussed with Physical Therapy, or please contact the office for further clarification or any concerns. Wade Rubio, [facility] [address] [place] [id number] Reviewed: 02-01[facility]09-26-2024 NotePatient Education - Text [place], [place] [facility] DISCHARGE INSTRUCTIONS: ANTERIOR CRUCIATE LIGAMENT GRAFT MEDICATIONS You will be given a prescription for pain medication. This should be taken as needed and try to take this with food. Pain medication can cause nausea, constipation, diarrhea, and restlessness and should only be used as needed. When you are able to tolerate Tylenol this should be used instead. ASPIRIN 325mg EC oral daily for 3 weeks for blood clot prevention. WOUND CARE Please keep dressing on. Keeping it clean and dry. Do not soak in the tub or otherwise submerge theincision until brian are removed. Any increase in pain, temperature or redness should be promptlyreported to the office. Reinforce dressing as needed. ACTIVITY You will be given a protocol of the Cruciate Ligament Reconstruction Program and therapy and this should be followed. Physical Therapy will advise you when it is safe to begin walking with crutches, generally this is performed after you obtain good leg strength, unless a meniscus repair has been performed as well. DIET You may begin to progress your regular home diet as tolerated. You should continue to increase fluids for the first two to three days after surgery. ANESTHESIA PRECAUTIONS You should not operate a vehicle (automobile, bicycle, motorcycle), machinery or power tools, make any important decisions or drink alcoholic beverages for 24 hours. You should not consume alcoholic beverages within 12 hours of using you pain medication. DRIVING Driving is legal. But if you are involved in an accident, you must be able to prove that you maintained full control of your vehicle. For this reason, it is advised that you do not drive until your strength returns. Similarly, all sports activities are discouraged, at least until your first post-operative visit at which time we will discuss how and when to resume sports. EXPECTATIONS OF SURGERY Your pain will continue to decrease day by day. You may experience swelling and this should be treated with elevation of the leg as well. Any increased pain should be promptly reported to my office. FOLLOW-UP APPOINTMENT You will be given a care for a follow-up appointment in the office, usually within 10 to 14 days. You will continue physical therapy until the time of your office visit. Any further questions may be discussed with Physical Therapy, or please contact the office for further clarification or any concerns. Wade Rubio, DO [facility] [address] [place] [address] Reviewed: 02-01[facility]09-10-2024 History of Present illness Narrative* Tiff Kent - 07/06/2024 2:00 PM EDT Images from the original note were not included. GENERAL HISTORY AND PHYSICAL: NAME: Jania Scott : 1985 CHIEF COMPLAINT: Right knee pain and instability. HISTORY OF PRESENT ILLNESS: Jania is here with a buckling injury back several months ago in the winter. Subsequently has had pain, swelling and irritability. She saw the [facility] and was told that she needed her ACL fixed. She has been trying to live with it, living in the [place] area. She has three children from 6 to 14 years old. She does have a boyfriend for local support. She is a stay at home mom, but stays very busy. She likes to get into running and exercise, but feels restricted with her knee. It will buckle and give out several times a day. She will have swelling if she tries to do anything significant. She has night disruption. She has had some near falls. She comes in with x-rays and MRI. Her MRI shows complete ACL failure. There may be a couple remianing fibers, but it is essentially gone in the mid portion. There is a mild effusion. There is a posterior medial meniscal tear, questionable anterolateral meniscal tear. Her posterior cruciate is intact. Collateral ligaments are intact. Her osteochondral cartilage is intact without sign of loose body. PAST MEDICAL HISTORY: History reviewed. No pertinent past medical history. PAST SURGICAL HISTORY: Past Surgical History: Procedure Laterality Date BREAST SURGERY Bilateral 2021 Enhancement DILATION AND CURETTAGE OF UTERUS 2008 WISDOM TOOTH EXTRACTION 2005 SOCIAL HISTORY: Social History Occupational History Not on file Tobacco Use Smoking status: Never Smokeless tobacco: Never Vaping Use Vaping status: Never Used Substance and Sexual Activity Alcohol use: Yes Comment: once a month Drug use: Never Sexual activity: Defer ALLERGIES: No Known Allergies MEDICATIONS: Current Outpatient Medications Medication Instructions omeprazole (PRILOSEC) 10 mg, Oral, Daily before breakfast, Do not crush or chew. pantoprazole (ProtoNix) 40 MG EC tablet TAKE ONE TABLET BY MOUTH EVERY MORNING, ON AN EMPTY STOMACHFOR GASTROESOPHAGEAL REFLUX DISEASE REVIEW OF SYSTEMS: The review of systems, history and current medications list are all reviewed today. Vitals: Visit Vitals Ht 5' 7 Wt 152 lb BMI 23.81 kg/m Smoking Status Never BSA 1.8 m PHYSICAL EXAM: On physical exam, she is alert and oriented. Vital signs are stable. She presents alone. The right knee has no gross atrophy. No gross deformity. There is mild swelling. She has moderate tenderness of the medial and posterior medial joint. Jocelyn's produces medial pain. Apley's produces medial pain with click. Varun and drawer has instability with significant anterior laxity consistent with ACL tear. PCL is intact. Collateral ligaments are intact. She gets full extension and she will flex the knee to approximately 115 degrees with guarding throughout. Her gait is stiff and antalgic with flexed posture. She is getting some compensatory calf pain, no sign of deep venous thrombosis or ulceration. X-rays and imaging permanently saved to the patient's record were reviewed, AP, lateral and sunriseviews, weight bearing films shows mild degenerative changes. There is no fracture or dislocation seen. MRI is as above. Surgical History and Physical: GENERAL AND PSYCHOLOGICAL: The patient is alert and oriented for age. HEAD AND E.E.N.T.: The skull is normocephalic. There is no mass or sign of trauma. NECK: The neck is supple. There is good range of motion. There is no mass or adenopathy appreciated. The thyroid is not enlarged. CARDIAC: The heart is regular. There is no murmur or ectopy appreciated. LUNGS: Inspiratory and expiratory excursions are symmetrical. The lung venegas are clear in all quadrants. ABDOMEN: The texture is soft. Bowel sounds are heard well in all quadrants. There is no tenderness to palpation. There is no organomegaly appreciated. OSTEOPATHIC AND STRUCTURAL: There is no gross evidence of kyphosis, lordosis, scoliosis, or apparent leg length discrepancy, with no acute tissue texture changes in sitting or standing positions. ASSESSMENT: Right knee internal derangement with complete ACL mid substance tear and posterior hornmedial meniscal tear. PLAN: The nature of the findings were discussed at length. We had a lengthy discussion regarding the pathology. We reviewed ACL reconstruction techniques, graft options with auto and allograft options with the pros, cons, risks, benefits and reasonable expectations of each were reviewed. Time, healing, commitment and expectations, bracing were all discussed. The nature of the findings were discussed at length. Knee arthroscopy was recommended. Imaging studies, pathology and anatomy were reviewed. The patient has failed conservative care and has continued symptomatology with activities of daily living disruption. Knee arthroscopy is warranted. The patient is aware that knee arthroscopy does not cure arthritis. There is a potential of continued pain, stiffness, antalgic gait, infection, infection requiring multiple surgeries with IV antibiotics, nerve, vessel or tendon injury, foot drop, bleeding, anesthesia complications, blood clot, pulmonary embolus, myocardial infarction, arrhythmia, stroke and have all been reviewed. I am personally involved with the informed consent process. Numerous questions were answered. The patient will undergo routine presurgical testing per protocol. I will see the patient back postoperatively for a recheck, sooner if worse. The patient voices verbal understanding and is discharged in stable condition. Consent forms are signed and witnessed for right knee arthroscopy with allograft anterior cruciate ligament reconstruction. We will have an L1830 ROM brace authorized and ready for surgery. We did measure her and will authorize an L1852 brace for her one month transition. I will see her back postoperatively for x-ray and exam. Time, healing, commitment and expectations were all reviewed. She voices verbal understanding. She is dischargedin stable condition. Wade Rubio D.O. documented in this encounterFitzgibbon [id number] Evaluation note* Encounter Date Diagnosis Assessment Notes Treatment Notes Treatment Clinical Notes Sep, Stress fracture of l eft foot, initial encounter (ICD-10 - M84.375A) [employer] Other 10-19-2023 Evaluation note* Encounter Date Diagnosis Assessment Notes Treatment Notes Treatment Clinical Notes Jul, Acute left ankle pain (ICD-10 - M25.572) Jul,Left foot pain (ICD-10 - M79.672)Discussed imaging and physical exam. We discussed possible etiologies of her pain source. Due to her increased running, I am highly suspicious of a stress fracture at this time. We need to rule this out before continuing any treatment. She states that it does not hurt to weight-bear. We will allow weightbearing as tolerated if it remains painless. Recommend no running for at least 2 more weeks ifno stress fracture. Stressed the importance of light activity to allow her symtoms to dissipate. Yolanda order a STAT MRI to asses for a stress fracture of the lateral foot. She will return to officeonce MRI results are obtained. Jul,Internal derangement of ankle (ICD-10 - M24.9) Jul,Stress fracture of left foot, initial encounter (ICD-10 - M84.375A) Jul,Lateral epicondylitis of elbow (ICD-10 - M77.10)Patient has symptoms of lateral epicondylitis. Activity modifications and eccentric exercises were d isplayed. She is instructed to rest to allow healing. [employer] Other 05-09-2023 Evaluation note* Encounter Date Diagnosis Assessment Notes Treatment Notes Treatment Clinical Notes February, Wellness examination (ICD-10 - Z 00.00) general topics regarding health education were discussed in detail. All preventative issues were discussed including remaining a nonsmoker, colorectal screening, the importance of proper sleep for brain health maintenance, maintaining a heart-healthy balanced diet, recognizing and addressing signs of anxiety and depression, maintaining positive relationships with family and friends. February,ERD without esophagitis (ICD-10 - K21.9)famotidine sent as above. [employer] Other 10-28-2022 Hospital Discharge instructions Patient Education 08/23/2022 14:21:49 Endoscopy, Care After [place] [facility] Endoscopy Care After Procedure Please read the instructions outlined below and refer to this sheet in the next few weeks. These discharge instructions provide you with general information on caring [facility] Your doctor may also give you specific instructions. While your treatment has been planned according to the most current medical practices available, unavoidable complications occasionally occur. If you have any problems or questions after discharge, please call your doctor. ACTIVITY You may resume your regular activity but move at a slower pace for the next 24 hours. Take frequent rest periods for the next 24 hours. Walking will help expel (get rid of) the air and reduce the bloated feeling in your abdomen. No driving for 24 hours (because of the anesthesia (medicine) used during the test). You may shower. Do not sign any important legal documents or operate any machinery for 24 hours (because of the anesthesia used during the test). NUTRITION Drink plenty of fluids. You may resume your normal diet. Begin with a light meal and progress to your normal diet. Avoid alcoholic beverages for 24 hours or as instructed by your caregiver. MEDICATIONS You may resume your normal medications unless your caregiver tells you otherwise. WHAT YOU CAN EXPECT TODAY You may experience abdominal discomfort such as a feeling of fullness or gas pains. FOLLOW-UP Your doctor will discuss the results of your test with you. SEEK IMMEDIATE MEDICAL ATTENTION IF ANY OF THE FOLLOWING OCCUR: Excessive nausea (feeling sick to your stomach) and/or vomiting. Severe abdominal pain and distention (swelling). Trouble swallowing. Temperature over 100 F (37.8 C). Rectal bleeding or vomiting of blood. Document Released: 05/27/2005 Document Re-Released: 04/06/2007 [facility] Patient Information 2010 [employer]. 08/23/2022 14:21:49 Gastroesophageal Reflux Disease, Adult, Avaf-pj-Hbfm Gastroesophageal Reflux Disease, Adult Gastroesophageal reflux (CATHY) happens when acid from the stomach flows up into the tube that connects the mouth and the stomach (esophagus). Normally, food travels down the esophagus and stays in thestomach to be digested. With CATHY, food and stomach acid sometimes move back up into the esophagus. You may have a disease called gastroesophageal reflux disease (GERD) if the reflux: Happens often. Causes frequent or very bad symptoms. Causes problems such as damage to the esophagus. When this happens, the esophagus becomes sore and swollen (inflamed). Over time, GERD can make small holes (ulcers) in the lining of the esophagus. What are the causes? This condition is caused by a problem with the muscle between the esophagus and the stomach. When this muscle is weak or not normal, it does not close properly to keep food and acid from coming back up from the stomach. The muscle can be weak because of: Tobacco use. . Having a certain type of hernia (hiatal hernia). Alcohol use. Certain foods and drinks, such as coffee, chocolate, onions, and peppermint. What increases the risk? You are more likely to develop this condition if you: Are overweight. Have a disease that affects your connective tissue. Use NSAID medicines. What are the signs or symptoms? Symptoms of this condition include: Heartburn. Difficult or painful swallowing. The feeling of having a lump in the throat. A bitter taste in the mouth. Bad breath. Having a lot of saliva. Having an upset or bloated stomach. Belching. Chest pain. Different conditions can cause chest pain. Make sure you see your doctor if you have chest pain. Shortness of breath or noisy breathing (wheezing). Ongoing (chronic) cough or a cough at night. Wearing away of the surface of teeth (tooth enamel). Weight loss. How is this treated? Treatment will depend on how bad your symptoms are. Your doctor may suggest: Changes to your diet. Medicine. Surgery. Follow these instructions at home: Eating and drinking Follow a diet as told by your doctor. You may need to avoid foods and drinks such as: ?Coffee and tea (with or without caffeine). ?Drinks that contain alcohol. ?Energy drinks and sports drinks. ?Bubbly (carbonated) drinks or sodas. ?Chocolate and cocoa. ?Peppermint and mint flavorings. ?Garlic and onions. ?Horseradish. ?Spicy and acidic foods. These include peppers, chili powder, monahan powder, vinegar, hot sauces, and BBQ sauce. ?[address] fruit juices and citrus fruits, such as oranges, orquidea, and limes. ?Tomato-based foods. These include red sauce, chili, salsa, and pizza with red sauce. ?Fried and fatty foods. These include donuts, faroese fries, potato chips, and high-fat dressings. ?High-fat meats. These include hot dogs, rib eye steak, sausage, ham, and tom. ?High-fat dairy items, such as whole milk, butter, and cream cheese. Eat small meals often. Avoid eating large meals. Avoid drinking large amounts of liquid with your meals. Avoid eating meals during the 2 3 hours before bedtime. Avoid lying down right after you eat. Do not exercise right after you eat. Lifestyle Do not use any products that contain nicotine or tobacco. These include cigarettes, e-cigarettes, and chewing tobacco. If you need help quitting, ask your doctor. Try to lower your stress. If you need help doing this, ask your doctor. If you are overweight, lose an amount of weight that is healthy for you. Ask your doctor about a safe weight loss goal. General instructions Pay attention to any changes in your symptoms. Take rubz-tkr-bfqipsp and prescription medicines only as told by your doctor. Do not take aspirin, ibuprofen, or other NSAIDs unless your doctor says it is okay. Wear loose clothes. Do not wear anything tight around your waist. Raise (elevate) the head of your bed about 6 inches (15 cm). Avoid bending over if this makes your symptoms worse. Keep all follow-up visits as told by your doctor. This is important. Contact a doctor if: You have new symptoms. You lose weight and you do not know why. You have trouble swallowing or it hurts to swallow. You have wheezing or a cough that keeps happening. Your symptoms do not get better with treatment. You have a hoarse voice. Get help right away if: You have pain in your arms, neck, jaw, teeth, or back. You feel sweaty, dizzy, or light-headed. You have chest pain or shortness of breath. You throw up (vomit) and your throw-up looks like blood or coffee grounds. You pass out (faint). Your poop (stool) is bloody or black. You cannot swallow, drink, or eat. Summary If a person has gastroesophageal reflux disease (GERD), food and stomach acid move back up into theesophagus and cause symptoms or problems such as damage to the esophagus. Treatment will depend on how bad your symptoms are. Follow a diet as told by your doctor. Take all medicines only as told by your doctor. This information is not intended to replace advice given to you by your health care provider. Make sure you discuss any questions you have with your health care provider. Document Released: 03/31/2009 Document Revised: 04/21/2019 Document Reviewed: 04/21/2019 [employer] Patient Education 2020 [employer]. 08/23/2022 14:21:49 Hiatal Hernia Hiatal Hernia A hiatal hernia occurs when part of the stomach slides above the muscle that separates the abdomen from the chest (diaphragm). A person can be born with a hiatal hernia (congenital), or it may develop over time. In almost all cases of hiatal hernia, only the top part of the stomach pushes through the diaphragm. Many people have a hiatal hernia with no symptoms. The larger the hernia, the more likely it is that you will have symptoms. In some cases, a hiatal hernia allows stomach acid to flow back into the tube that carries food from your mouth to your stomach (esophagus). This may cause heartburn symptoms. Severe heartburn symptoms may mean that you have developed a condition called gastroesophageal reflux disease (GERD). What are the causes? This condition is caused by a weakness in the opening (hiatus) where the esophagus passes through the diaphragm to attach to the upper part of the stomach. A person may be born with a weakness in thehiatus, or a weakness can develop over time. What increases the risk? This condition is more likely to develop in: Older people. Age is a major risk factor for a hiatal hernia, especially if you are over the age of50. women. People who are overweight. People who have frequent constipation. What are the signs or symptoms? Symptoms of this condition usually develop in the form of GERD symptoms. Symptoms include: Heartburn. Belching. Indigestion. Trouble swallowing. Coughing or wheezing. Sore throat. Hoarseness. Chest pain. Nausea and vomiting. How is this diagnosed? This condition may be diagnosed during testing for GERD. Tests that may be done include: X-rays of your stomach or chest. An upper gastrointestinal (GI) series. This is an X-ray exam of your GI tract that is taken after you swallow a chalky liquid that shows up clearly on the X-ray. Endoscopy. This is a procedure to look into your stomach using a thin, flexible tube that has a tiny camera and light on the end of it. How is this treated? This condition may be treated by: Dietary and lifestyle changes to help reduce GERD symptoms. Medicines. These may include: ?Plef-dut-lpycxgr antacids. ?Medicines that make your stomach empty more quickly. ?Medicines that block the production of stomach acid (H2 blockers). ?Stronger medicines to reduce stomach acid (proton pump inhibitors). Surgery to repair the hernia, if other treatments are not helping. If you have no symptoms, you may not need treatment. Follow these instructions at home: Lifestyle and activity Do not use any products that contain nicotine or tobacco, such as cigarettes and e-cigarettes. If you need help quitting, ask your health care provider. Try to achieve and maintain a healthy body weight. Avoid putting pressure on your abdomen. Anything that puts pressure on your abdomen increases the amount of acid that may be pushed up into your esophagus. ?Avoid bending over, especially after eating. ?Raise the head of your bed by putting blocks under the legs. This keeps your head and esophagus higher than your stomach. ?Do not wear tight clothing around your chest or stomach. ?Try not to strain when having a bowel movement, when urinating, or when lifting heavy objects. Eating and drinking Avoid foods that can worsen GERD symptoms. These may include: ?Fatty foods, like fried foods. ?[address] fruits, like oranges or lemon. ?Other foods and drinks that contain acid, like orange juice or tomatoes. ?Spicy food. ?Chocolate. Eat frequent small meals instead of three large meals a day. This helps prevent your stomach from getting too full. ?Eat slowly. ?Do not lie down right after eating. ?Do not eat 1 2 hours before bed. Do not drink beverages with caffeine. These include cola, coffee, cocoa, and tea. Do not drink alcohol. General instructions Take eqge-ucs-aeytrri and prescription medicines only as told by your health care provider. Keep all follow-up visits as told by your health care provider. This is important. Contact a health care provider if: Your symptoms are not controlled with medicines or lifestyle changes. You are having trouble swallowing. You have coughing or wheezing that will not go away. Get help right away if: Your pain is getting worse. Your pain spreads to your arms, neck, jaw, teeth, or back. You have shortness of breath. You sweat for no reason. You feel sick to your stomach (nauseous) or you vomit. You vomit blood. You have bright red blood in your stools. You have black, tarry stools. This information is not intended to replace advice given to you by your health care provider. Make sure you discuss any questions you have with your health care provider. Document Released: 01/02/2005 Document Revised: 09/25/2018 Document Reviewed: 05/18/2018 [employer] Patient Education 2020 Stat. Follow Up Care 07/29/2022 10:42:01 With:Luna LINARES Address: [address] [place] [address]. [address] [place] [address] [facility] (1) When:1 to 2 weeks Comments:Call for any problems. Office will call to schedule follow up [facility]10-28-2022 Evaluation + Plan noteExtracted from: Title:Post-anesthesia - GeneralAuthor:Willie Soares Jr., DO GDate:08/23/22 Plan Transfer/ Discharge: Condition stable. Extracted from:Title:Pre-anesthesia - EndoscopyAuthor:Willie Soares Jr., DO Date:08/23/22 Plan [place] [employer] (ASA) physical status classification: Class II. Anesthetic Preoperative Plan Anesthesia: General. . Anesthetic plan, risks, benefits, and alternatives discussed with the patient and/or family. Patient verbalized understanding.[facility] Evaluation + Plan note Future Appointments Appointment Date:08/16/2022 09:00:00 AM Scheduled Provider: Location:[facility] Appointment Type:Surgery PAT COVID Testing Appointment Date:08/23/2022 01:10:00 PM Scheduled Provider: Location:[facility] App[facility]ment [facility] Future Appointments Appointment Date:07/26/2024 12:30:00 PM Scheduled Provider: Location:[facility] Appointment Type:Surgery FT [facility] Evaluation noteNo InformationNort [employer] Other Evaluation noteNo assessment information [facility] Work Phone: Evaluation note* Diagnosis Acute pain of right knee- Primary [facility] Diagnosis Status post repair of anterior cruciate ligament- Primary Other postprocedural status Right knee pain, unspecified chronicity [facility]* Diagnosis Status post repair of anterior cruciate ligament- Primary Other postprocedural status Right knee pain, unspecified chronicity [facility] Diagnosis Status post repair of anterior cruciate ligament- Primary Other postprocedural status Right knee pain, unspecified chronicity [facility]* Diagnosis Right knee pain, unspecified chronicity- Primary Status post repair of anterior cruciate ligament Other postprocedural status [facility]* Diagnosis Right knee pain, unspecified chronicity- Primary Status post repair of anterior cruciate ligament Other postprocedural status [facility]* Diagnosis Right knee pain, unspecified chronicity- Primary Status post repair of anterior cruciate ligament Other postprocedural status [facility]* Diagnosis Right knee pain, unspecified chronicity- Primary Status post repair of anterior cruciate ligament Other postprocedural status [facility]* Diagnosis Acute injury of right anterior cruciate ligament, subsequent encounter- Primary [facility]* Diagnosis Right knee pain, unspecified chronicity- Primary Status post repair of anterior cruciate ligament Other postprocedural status [facility]* Diagnosis Pre-op testing- Primary Unspecified pre-operative examination Acute pain of right knee documented in this encounter [facility]* Diagnosis Status post reconstruction of anterior cruciate ligament- Primary Other postprocedural status documented [facility]* Diagnosis Right knee pain, unspecified chronicity- Primary Status post repair of anterior cruciate ligament Other postprocedural status documented in this encounter [facility]* Diagnosis Right knee pain, unspecified chronicity- Primary Status post repair of anterior cruciate ligament Other postprocedural status documented in this encounter [facility]* Diagnosis Right knee pain, unspecified chronicity- Primary Status post repair of anterior cruciate ligament Other postprocedural status documented in this encounter [facility] HealthcareHistory general Narrative - Reported* Type Description Date Medical History Acid reflux Surgical HistoryWisdom [id number] HistoryD & [id number] HistoryBreast [id number] [employer] Other Hospital course Narrative No data available for this section [facility] Discharge instructions No data available for this section [facility] No data available for this section [facility] Narrative* Consultation (Routine) - AuthorizedSpecialtyDiagnoses / ProceduresReferred By ContactReferred To ContactPhysical Therapy Diagnoses Status post repair of anterior cruciate ligament Procedures AL OFFICE/OUTPATIENT NEW [facility]IGH MDM 60 MINUTES Wade Rubio DO [address] [place] [address] Phone: tel: fax: Fide Ortiz PT Referral IDStatusReasonStart DateExpiration DateVisits RequestedVisits [id number] Consult and Treat [facility] Narrative* Consultation (Routine) - Closed SpecialtyDiagnoses / ProceduresReferred By ContactReferred To ContactPhysical Therapy Diagnoses Status post repair of anterior cruciate ligament Procedures AL OFFICE/OUTPATIENT [facility] MDM 60 MINUTES Wade Rubio DO [address] [place] [address] Phone: tel: fax: Fide Ortiz, PT Referral Lidia DateExpiration DateVisits RequestedVisits [id number] Consult and Treat [facility] Narrative* Rehabilitation - Outpatient (Routine) - AuthorizedSpecialtyDiagnoses / ProceduresReferred By ContactReferred To ContactPhysical Therapy Diagnoses Other specified postprocedural states S/P ACL Repair Procedures AL THER PX 1/> AREAS EACH 15 MIN NEUROMUSC REEDUCA AL THERAPEUTIC PX 1/> AREAS EACH 15 MIN EXERCISES AL PHYSICAL THERAPY EVALUATION LOW COMPLEX 20 MINS PHYS/OCC THERAPY Radha Garza DISTRICT [employer] [address] [address] Phone: tel: fax: Fide Ortiz, PT Referral IDStatJeevanStmoses DateExpiration DateVisits RequestedVisits [id number] [facility] Narrative* Rehabilitation - Outpatient (Routine) - ClosedSpecialtyDiagnoses / ProceduresReferred By ContactReferred To Contact Physical Therapy Diagnoses Other specified postprocedural states S/P ACL Repair Procedures AL THER PX 1/> AREAS EACH 15 MIN NEUROMUSC REEDUCA AL THERAPEUTIC PX 1/> AREAS EACH 15 MIN EXERCISES AL PHYSICAL THERAPY EVALUATION LOW COMPLEX 20 MINS PHYS/OCC THERAPY Radha Garza NP [address] [address] Phone: tel: fax: Fide Ortiz, PT Referral Lidia DateExpiration DateVisits RequestedVisits [id number] [facility] Chief Complaint and Reason for Visit Chief Complaint M25.572 Chief Complaint M25.572 M24.9 Chief Complaint r knee pain swelling injury when twisting pop Advance Directives No Advanced Directives Records Found Advance Directive Response Recorded Date/ Time Advance Directives No August 14, 2023 3:07pm Advance Directive Response Recorded Date/ Time Advance Directives No August 15, 2023 1:55pm Reason for Referral Reason please refer to Dr Lyndsay martins for continued left foot pain Diagnosis 1 Stress fracture of l eft foot, initial encounter (M84.375A) Referral Organization [facility] Juan M Orth[facility] ped[facility] Referring Provider First Name Dhruv Referring Provider Last Name Anne Referring Provider Specialty Orthopedic Surgery Referred Organization Unknown Facility Referred Provider Specialty Podiatry - S urgical Chiropody Referral Priority Routine Family History No Family History Records Found Relationship Condition Age at Onset Recorded Date/T jacqueline mother Unknown Diabetes mellitusUnknownMalignant neoplasmUnknownHypertensionUnknownHeart diseaseUnknown Summary Purpose Additional Source Comments Patient Care team informatio n (unrecognized section and content) Personnel Name: RADHA SUN CNP Name: Dione Daugherty Team Status: Active Member Role Status Dates Terri Garcia MD Primary Care Provider Active Team Status: Active Member Role Status Dates Terri Garcia MD Primary Care Provide r, Attending Provider Active Start: April 06, 2024 Team Status: Inactive Member Role Status Dates Terri Garcia MD Primary Care Provider Active Start: April 30, 2024 End: April 30ericka Sun APRN DISTRICT MANAGER [employer]-CAttending ProviderActiveStart: April 30, 2024 End: April 30, 2024 Team Status: Active Member Role Status Dates Terri Garcia MD Primary Care Provider Active Team Status: Inactive Member Role Status Dates Dhruv Rodríguez DO Attending Provider Active Team Status: Inactive Member Role Status Dates Dhruv Rodríguez DO Attending Provider Active [facility] [place] Care ProviderActive Team Status: Inactive Member Role Status Dates Dhruv Rodríguez DO Attending Provider Active Personnel Name: PJ MARTIN Address: Address: [address] [place] [address]- REASON FOR VISIT (unrecogniz ed section and content) ReasonCommentsPainReasonOnset DateCommentsPT thru [facility]08/06/[facility]24Tried to contact to schedule [facility], [facility] 08/05-12/15/24, but had to lm requesting a call back to do so.Call Back08/06/2024Shmerrick contacted and we scheduled her out; 08/12 w/ Kirstian Ortiz PT, Rolanda.ReasonOnset DateCommentsre: Brace08/06/2024Shmerrick called regarding she was supplied a brace per [place], but given the fit and weight, and ability w/ movement she is seeking to either purchase a new one or if Dr. Rubio could order one for her. She did note at her fu Dr. Rubio, he was thrown back due to the braces are more updated and more adaptable. She had called in request of purchasing / or being accommodated w/ a new one. She asked if she co uld receive a reply w/ more information detailing the subject. Thank youReason Onset DateCommentsVA-PT10/07/2024easonCommentsFollow-upRt ACL reconstruction w/ [place] [facility] [place] w/ MTP, PT AHReasonOnset DateCommentsre: [facility] RFS 10/12/2024FU10/15/2024FU re: time delay11/16/2024[facility] Auth Pdcdvoqm12/23/2025 ReasonOnset DateCommentsCX of PT jumhlwvp11/04/2025 Goals (unrecognized section and content) Goals may be documented in a n alternate section INFORMATION SOURCE (unrecogn ized section and content) DATE CREATED AUTHOR 05/13/2024 [facility] DATE CREATED AUTHOR AUTHOR'S ORGANIZ ATION 07/13/2024 [facility] DATE CREATED AUTHOR AUTHOR'S ORGANIZ ATION 07/26/2024 [facility] DATE CREATED AUTHOR AUTHOR'S ORGANIZ ATION 07/29/2024 [facility] DATE CREATED AUTHOR AUTHOR'S ORGANIZ ATION 02/09/2025 [facility] EPIC (unrecognized sect ion and content) No Status Records Found FOR RECORDS PERTAINING TO PATIENTS WHO ARE OR HAVE BEEN ENROLLED IN A CHEMICAL DEPENDENCY/SUBSTANCEABUSE PROGRAM, SOME INFORMATION MAY BE OMITTED. This clinical summary was aggregated from multiple sources. Caution should be exercised in using it in the provision of clinical care. This summary normalizes information from multiple sources, and as a consequence, information in this document may materially change the coding, format and clinical context of patient data. In addition, data may be omitted in some cases. CLINICAL DECISIONS SHOULD BE BASED ON THE PRIMARY CLINICAL RECORDS. [facility] CenterFire[facility] Systems [facility] provides no warranty or guarantee of the accuracy or completeness of information in this document.
--- NOTE | 2025-08-24 12:40 | MR_ITS ---
[address] [address] Patient Name: JANIA SCOTT MRN: [id number] date: 1985 Sex: F Assigned Patient Location: MRI Current Patient Location: MRI Accession/Order Number: [id number] Exam Date: 08/24/2025 12:48 Report Date: 08/24/2025 14:49 At the request of: RADHA SUN Procedure: MR shoulder RT wo con EXAMINATION: MRI OF THE RIGHT SHOULDER CLINICAL HISTORY: right shoulder pain and weakness COMPARISON: Chronic right shoulder pain radiating into right bicep. TECHNIQUE: Multiecho, multiplanar imaging was performed with use of an extremity coil. No contrast was administered. FINDINGS: Bones/Joints: No joint effusion. Inferior glenohumeral ligament appears unremarkable. There is bone marrow edema along the humeral head without fracture line. There is cortical irregularity present. Subacromial/subdeltoid bursitis. Degenerative changes involving the AC and glenohumeral joints. Labrum: No focal abnormality. Biceps tendon: Normal Supraspinatus: Tendinosis with partial-thickness tear joint side approximately 8mm from the greater tubercle. No full-thickness tear is seen. Infraspinatus: Normal Teres Minor: Normal Subscapularis: Normal MR/MR shoulder RT wo con IMPRESSION: DEGENERATIVE CHANGES INVOLVING THE AC AND GLENOHUMERAL JOINT WITH BONE MARROW EDEMA INVOLVING THE HUMERAL HEAD LIKELY DEGENERATIVE IN NATURE. NO FRACTURE LINE IS SEEN. THERE IS ASSOCIATED SUBACROMIAL/SUBDELTOID BURSITIS WELL PARTIAL THICKNESS TEAR OF THE SUPRASPINATUS JOINT SIDE APPROXIMATELY 8 MM FROM THE GREATER TUBERCLE. Impression dictated by: Haris Keene Jr., DGauriOGauri 08/24/2025 2:49 PM Dictation Location: [place] [address] Electronically authenticated by: [id number] Y Date: 08/24/2025 14:49
== END 2025-08-24 12:22 | disposition home or self-care (01) ==
LOC: MRI 12:25
DX: M25.511 Pain in right shoulder (principal); M19.011 Primary osteoarthritis, right shoulder
CPT/HCPCS: 73221